=== PATIENT | female | born 1940 | race Caucasian/White ===

== ENCOUNTER → 2016-08-23 | Outpatient (CLI) | payer MEDICARE ==
[2016-08-23 13:06] LABS: ABSOLUTE EOSINOPHILS # (AUTO) 0.1 10^3/uL (0.0-0.6); ABSOLUTE LYMPHOCYTES (AUTO) 1.8 10^3/uL (0.5-4.7); ABSOLUTE MONOCYTES (AUTO) 0.5 10^3/uL (0.1-1.4); ABSOLUTE NEUT (AUTO) 5.2 10^3/uL (1.7-8.2); BASOPHILS % (AUTO) 0.4 % (0-2); EOSINOPHILS % (AUTO) 0.8 % (0-6); HEMATOCRIT 35.7 % (36.0-47.0); HEMOGLOBIN 11.3 g/dL (12.0-15.5); HGB HCT DIFFERENCE -1.8; LYMPHOCYTES % (AUTO) 23.2 % (13-45); MEAN CORPUSCULAR HEMOGLOBIN 26.6 pg (27.0-33.4); MEAN CORPUSCULAR HGB CONC 31.6 g/dL (32.0-36.0); MEAN CORPUSCULAR VOLUME 84 fl (80-97); MONOCYTES % (AUTO) 7.1 % (3-13); RED BLOOD COUNT 4.23 10^6/uL (3.72-5.28); RED CELL DISTRIBUTION WIDTH 16.3 % (11.5-14.0); SEGMENTED NEUTROPHILS % (AUTO) 68.5 % (42-78); WHITE BLOOD COUNT 7.6 10^3/uL (4.0-10.5)
[2016-08-23 13:37] LABS: ALANINE AMINOTRANSFERASE 24 U/L (9-52); ALBUMIN 3.9 g/dL (3.5-5.0); ALKALINE PHOSPHATASE 78 U/L (38-126); ANION GAP 11 (5-19); ASPARTATE AMINO TRANSFERASE 20 U/L (14-36); BILIRUBIN,DIRECT 0.3 mg/dL (0.0-0.4); BILIRUBIN,TOTAL 0.4 mg/dL (0.2-1.3); BLOOD UREA NITROGEN 17 mg/dL (7-20); C-REACTIVE PROTEIN 15.6 mg/L (<10.0); CALCIUM 9.6 mg/dL (8.4-10.2); CARBON DIOXIDE 29 mmol/L (22-30); CHLORIDE 103 mmol/L (98-107); CREATININE RESULT 0.83 mg/dL (0.52-1.25); GLUCOSE 75 mg/dL (75-110); SODIUM 142.5 mmol/L (137-145); TOTAL PROTEIN 7.4 g/dL (6.3-8.2)
[2016-08-23 13:55] LABS: ERYTHROCYTE SEDIMENTATION RATE 48 mm/hr (0-30)
== END ==
LOC: WC 11:22
PROVIDERS: ATTEND Surgery
DX: E11.9 Type 2 diabetes mellitus without complications (principal)
CPT/HCPCS: 36415; 80053; 83036; 85025; 85652; 86140

== ENCOUNTER → 2016-09-11 | Outpatient (CLI) | payer MEDICARE ==
--- NOTE | 2016-09-12 11:15 | XCELERA REPORT ---
[address] [address] Lower Extremity Arterial Evaluation Name: MICHAELA WESLEY Age: 75 yrs Gender: Female : 1940 Patient Status: Outpatient Patient Location: Study Date: 09/11/2016 01:54 PM Procedure: A color flow and duplex scan of the lower extremity arteries was performed bilaterally with velocity and waveform anaylsis. Ankle brachial indicies performed. Reason For Study: ULCER Ordering Physician: KAYLYN MARTINS Performed By: Garth Lovett Measurements and Calculations Right Left ROLLER PICKER PSV 200.4 173.8 cm/sec Prox PFA PSV 106.9 cm/sec Dist SFA PSV -127.3 -119.4 cm/sec Dist Pop A PSV 116.3 106.2 cm/sec Dist RONN PSV 79.5 131.3 cm/sec Dist GLASS FURNACE OPERATOR PSV -108.7 136.9 cm/sec Mookie Pedis PSV 77.3 -72.0 cm/sec Right Side Arterial Evaluation Normal velocity and triphasic waveforms noted from the Common Femoral artery to the infrageniculate vessels. 0 % stenosis noted. Ankle Brachial index is 1.12. Left Side Arterial Evaluation Normal velocity and triphasic waveforms noted from the Common Femoral artery to the infrageniculate vessels. 0% stenosis noted. Ankle Brachial index is 1.32. Interpretation Summary No hemodynamically significant lesions in the bilateral lower extremities, on duplex imaging, at rest. : KAYLYN MARTINS > Kaylyn Martins
--- NOTE | 2016-09-12 11:22 | XCELERA REPORT ---
[address] [address] Lower Extremity Venous Evaluation Name: MICHAELA WESLEY Age: 75 yrs Gender: Female : 1940 Patient Status: Outpatient Patient Location: Study Date: 09/11/2016 02:17 PM Procedure: A bilateral duplex scan of the lower extremity veins was performed. The evaluation included responses to compression and other maneuvers with patient in the supine and standing positions to assess venous insufficiency. Reason For Study: ULCER Ordering Physician: KAYLYN MARTINS Performed By: Garth Lovett Right Sided Venous Evaluation Deep venous system evaluatiion shows patent veins with no obstruction or significant reflux identified. Sapheno Femoral junction: no reflux. Femoral vein reflux: no reflux. Greater Saphenous vein, Proximal thigh: reflux: no reflux. Greater Saphenous vein, Distal thigh: reflux: no reflux. Greater Saphenous vein, Proximal below knee: reflux: no reflux. No significant Perforators identified. Left Sided Venous Evaluation Deep venous system evaluatiion shows patent veins with no obstruction or significant reflux identified. Sapheno Femoral junction: no reflux. Femoral vein reflux: no reflux. Greater Saphenous vein, Proximal thigh: reflux: no reflux. Greater Saphenous vein, Distal thigh: reflux: no reflux. Greater Saphenous vein, Proximal below knee: reflux: no reflux. No significant Perforators identified. Interpretation Summary No duplex evidence of DVT or obstruction in the bilateral lower extremities. No significant reflux identified. : KAYLYN MARTINS > Kaylyn Martins
== END ==
LOC: SP 13:26
PROVIDERS: ATTEND Surgery
DX: L97.212 Non-pressure chronic ulcer of right calf with fat layer exposed (principal); L97.222 Non-pressure chronic ulcer of left calf with fat layer exposed
CPT/HCPCS: 93925; 93970

== ENCOUNTER 2019-07-02 12:56 | Inpatient (IN) | payer MEDICARE ==
[2019-07-02 14:01] LABS: ABSOLUTE BASOPHILS # (AUTO) 0.1 10^3/uL (0.0-0.2); ABSOLUTE EOSINOPHILS # (AUTO) 0.1 10^3/uL (0.0-0.6); ABSOLUTE MONOCYTES (AUTO) 0.6 10^3/uL (0.1-1.4); ABSOLUTE NEUT (AUTO) 5.4 10^3/uL (1.7-8.2); BASOPHILS % (AUTO) 0.8 % (0-2); EOSINOPHILS % (AUTO) 0.7 % (0-6); HEMATOCRIT 19.8 % (36.0-47.0); LYMPHOCYTES % (AUTO) 13.8 % (13-45); MEAN CORPUSCULAR HEMOGLOBIN 17.2 pg (27.0-33.4); MEAN CORPUSCULAR HGB CONC 27.4 g/dL (32.0-36.0); PLATELET COUNT 302 10^3/uL (150-450); RED BLOOD COUNT 3.16 10^6/uL (3.72-5.28); RED CELL DISTRIBUTION WIDTH 23.4 % (11.5-14.0); SEGMENTED NEUTROPHILS % (AUTO) 76.7 % (42-78); TOTAL CELLS COUNTED % (AUTO) 100 %
--- NOTE | 2019-07-02 14:10 | RADIOLOGY REPORT (SQ) ---
EXAM DESCRIPTION: CHEST SINGLE VIEW IMAGES COMPLETED DATE/TIME: 07/02/2019 2:02 pm REASON FOR STUDY: shortness of breath COMPARISON: None. FINDINGS: One-view chest AP portable upright. 2 images obtained. Cardiomegaly. No overt congestive failure or pneumonia or pneumothorax. TECHNICAL DOCUMENTATION: JOB ID: [id number] Reading location - IP/workstation name: [email or web address]
[2019-07-02 14:16] LABS: ALBUMIN 3.1 g/dL (3.5-5.0); ALKALINE PHOSPHATASE 110 U/L (38-126); ANION GAP 9 (5-19); ASPARTATE AMINO TRANSFERASE 26 U/L (14-36); BILIRUBIN,DIRECT 0.2 mg/dL (0.0-0.4); BILIRUBIN,TOTAL 0.9 mg/dL (0.2-1.3); BLOOD UREA NITROGEN 15 mg/dL (7-20); CALCIUM 8.7 mg/dL (8.4-10.2); CARBON DIOXIDE 27 mmol/L (22-30); CHLORIDE 94 mmol/L (98-107); POTASSIUM 4.5 mmol/L (3.6-5.0); TOTAL PROTEIN 6.6 g/dL (6.3-8.2)
[2019-07-02 14:18] LABS: MEAN CORPUSCULAR VOLUME 63 fl (80-97)
[2019-07-02 14:22] LABS: HEMOGLOBIN 5.4 g/dL (12.0-15.5)
[2019-07-02 14:24] LABS: GLUCOSE 609 mg/dL (75-110)
[2019-07-02 14:25] LABS: ANISOCYTOSIS 3+; HYPOCHROMASIA 2+; PLATELET COMMENT ADEQUATE; POIKILOCYTOSIS SLIGHT; POLYCHROMASIA 1+; SCHISTOCYTES SLIGHT; TEAR DROP CELLS SLIGHT
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
[2019-07-02] MEDS ORDERED: NORMAL SALINE 250 ML IV PRN (14:58)
[2019-07-02 15:11] LABS: FREE T3 2.38 pg/mL (2.77-5.27); FREE T4 (FREE THYROXINE) 0.76 ng/dL (0.78-2.19)
[2019-07-02 15:25] LABS: THYROID STIMULATING HORMONE 8.33 uIU/mL (0.47-4.68)
[2019-07-02 15:40] LABS: APPEARANCE,URINE CLEAR; BILIRUBIN,URINE NEGATIVE (NEGATIVE); COLOR,URINE YELLOW; GLUCOSE, URINE >=500 mg/dL (NEGATIVE); KETONES,URINE TRACE mg/dL (NEGATIVE); LEUKOCYTE ESTERASE,URINE NEGATIVE (NEGATIVE); NITRITE,URINE POSITIVE (NEGATIVE); PROTEIN,URINE NEGATIVE (NEGATIVE); URINE SPECIFIC GRAVITY 1.021; UROBILINOGEN,URINE NEGATIVE mg/dL (<2.0)
[2019-07-02 15:55] LABS: INTERNATIONAL RATION (INR) 1.22; PROTHROMBIN TIME 15.5 SEC (11.4-15.4)
[2019-07-02 16:12] LABS: ABSOLUTE RETICS # 0.108 10^6/uL (0.028-0.122); RETICULOCYTE COUNT (AUTO) 3.38 % (0.66-2.85)
[2019-07-02 16:29] LABS: IRON(TIBC) 17.4 ug/dL (37-170)
[2019-07-02 17:06] LABS: FERRITIN 5.94 ng/mL (11.1-264.0)
[2019-07-02] MEDS ORDERED: NORMAL SALINE 1000 ML 1,000 ML IV ONE (17:09)
[2019-07-02 17:37] LABS: FOLATE 6.03 ng/mL (>2.76)
--- NOTE | 2019-07-02 18:18 | RADIOLOGY REPORT (SQ) ---
EXAM DESCRIPTION: CT ABD/PELVIS WITH IV ONLY IMAGES COMPLETED DATE/TIME: 07/02/2019 6:02 pm REASON FOR STUDY: Anemia COMPARISON: Recent radiographs. TECHNIQUE: CT scan of the abdomen and pelvis performed using helical scanning technique with dynamic intravenous contrast injection. No oral contrast. Images reviewed with lung, soft tissue, and bone windows. Reconstructed coronal and sagittal MPR images reviewed. Delayed images for evaluation of the urinary system also acquired. All images stored on PACS. All CT scanners at this facility use dose modulation, iterative reconstruction, and/or weight based d osing when appropriate to reduce radiation dose to as low as reasonably achievable (ALARA). [facility]: Dose Right [facility]: CareDose [facility]: Dose Right [facility]: Teradose 4D [facility]: Per Vices CONTRAST TYPE AND DOSE: contrast/concentration: Isovue 350.00 mg/ml; Total Contrast Delivered: 100.0 ml; Total Saline Delivered: 72.0 ml RENAL FUNCTION: GFR > 60. RADIATION DOSE: CT Rad equipment meets quality standard of care and radiation dose reduction techniq ues were employed. CTDIvol: 19.2 - 21.1 mGy. DLP: 2169 mGy-cm.. LIMITATIONS: Habitus. FINDINGS: LOWER CHEST: Small bilateral effusions. Cardiomegaly. LIVER: Normal size. No masses. No dilated ducts. SPLEEN: Normal size. No focal lesions. PANCREAS: No masses. No significant calcifications. No adjacent inflammation or peripancreatic fluid collections. Pancreatic duct not dilated. GALLBLADDER: Surgically absent. ADRENAL GLANDS: No significant masses or asymmetry. RIGHT KIDNEY AND URETER: No solid masses. No significant calcification. No hydronephrosis or hydroure ter. LEFT KIDNEY AND URETER: No solid masses. No significant calcification. No hydronephrosis or hydrouret er. AORTA AND VESSELS: No aneurysm. No dissection. Renal arteries, SMA, celiac without stenosis. RETROPERITONEUM: No retroperitoneal adenopathy, hemorrhage or masses. BOWEL AND PERITONEAL CAVITY: No masses or inflammatory changes. No free fluid or peritoneal masses. APPENDIX: Normal. PELVIS: No mass. No free fluid. Normal bladder. ABDOMINAL WALL: Stranding in the ventral abdominal wall panniculus. No drainable collection. Abdomi nal wall partially out of the field of view. Small fat containing periumbilical hernia. No bowel co ntaining hernia. BONES: No significant or acute findings. OTHER: No other significant finding. IMPRESSION: 1. Trace effusions and cardiomegaly. 2. No acute or suspicious intraabdominal abnormality. Soft tissue findings as above. TECHNICAL DOCUMENTATION: JOB ID: [id number] Quality ID # [id number]: Final reports with documentation of one or more dose reduction techniques (e.g., Au tomated exposure control, adjustment of the mA and/or kV according to patient size, use of iterative reconstruction technique) 2010 [employer]- All Rights Reserved Reading location - IP/workstation name: [email or web address]
[2019-07-02] MEDS ORDERED: DEXTROSE 50%-WATER 25 GM/50 ML DISP.SYRIN IV PRN ×2 (19:38)
[2019-07-02] MEDS ORDERED: GLUCAGON,HUMAN RECOMB 1 MG INJ IM PRN (19:38)
[2019-07-02] MEDS ORDERED: DEXTROSE 40% GEL 15 GM TUBE PO PRN ×2 (19:38)
[2019-07-02] MEDS ORDERED: NORMAL SALINE 1000 ML 1,000 ML IV PRN (19:41)
[2019-07-02] MEDS ORDERED: ALBUTEROL SULFATE 0.083% NEB 2.5 MG/3 ML AMPUL NEB PRN (19:41)
[2019-07-02] MEDS ORDERED: MAG HYDROX/AL HYDROX/SIMETH SUSP 30 ML UDCUP PO PRN (19:41)
[2019-07-02] MEDS ORDERED: ONDANSETRON HCL INJ/PF 4 MG/2 ML SDV IV PRN (19:41)
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
[2019-07-02] MEDS ORDERED: INSULIN LISPRO 100 UNIT/ML 3 ML VIAL SUBCUT ONE (20:15)
[2019-07-02] MEDS ORDERED: IRON SUCROSE COMPLEX 300 MG in NORMAL SALINE 250 ML IV ONE (20:30)
[2019-07-02] MEDS: INSULIN LISPRO 100 UNIT/ML 3 ML VIAL SUBCUT SCH (21:46)
[2019-07-02] MEDS: FAMOTIDINE 20 MG TABLET PO SCH (21:46)
[2019-07-02] MEDS: ACETAMINOPHEN 325 MG TABLET PO PRN (23:10)
[2019-07-03] MEDS ORDERED: INSULIN REG, HUMAN 100 UNIT/ML 3 ML VIAL (PYX) IV ONE (05:30)
[2019-07-03 05:35] LABS: HEMATOCRIT 26.3 % (36.0-47.0); MEAN CORPUSCULAR HEMOGLOBIN 19.5 pg (27.0-33.4); MEAN CORPUSCULAR HGB CONC 30.2 g/dL (32.0-36.0); MEAN CORPUSCULAR VOLUME 65 fl (80-97); PLATELET COUNT 284 10^3/uL (150-450); RED BLOOD COUNT 4.07 10^6/uL (3.72-5.28); RED CELL DISTRIBUTION WIDTH 27.2 % (11.5-14.0); WHITE BLOOD COUNT 8.8 10^3/uL (4.0-10.5)
[2019-07-03 05:51] LABS: ANION GAP 11 (5-19); BLOOD UREA NITROGEN 14 mg/dL (7-20); CARBON DIOXIDE 24 mmol/L (22-30); CHLORIDE 97 mmol/L (98-107); GLUCOSE 368 mg/dL (75-110); POTASSIUM 3.9 mmol/L (3.6-5.0)
[2019-07-03 06:18] LABS: HEMOGLOBIN 7.9 g/dL (12.0-15.5)
[2019-07-03] MEDS: LEVOTHYROXINE SODIUM 0.025 MG TABLET PO SCH (06:21)
[2019-07-03] MEDS: ACETAMINOPHEN 325 MG TABLET PO PRN (06:21)
[2019-07-03] MEDS: INSULIN LISPRO 100 UNIT/ML 3 ML VIAL SUBCUT SCH ×4 (07:51→21:35)
[2019-07-03] MEDS: DOCUSATE SODIUM 100 MG CAPSULE PO SCH (10:12)
[2019-07-03] MEDS: FAMOTIDINE 20 MG TABLET PO SCH ×2 (10:12→21:34)
[2019-07-03] MEDS: MINERAL OIL/PETROLATUM,WHITE CREAM 114 GM TP SCH (11:31)
--- NOTE | 2019-07-03 17:16 | PDOC PROGRESS REPORT ---
Subjective Progress Note for:: 07/03/19 Subjective:: MICHAELA WESLEY is a 78 year old female past medical history significant for hypertension, hyperlipidemia, DM 2, hypothyroidism, and obesity who was admitted 07/02/2019 with symptomatic anemia. Patient was seen on morning rounds. She is found sitting up to the recliner, comfortably, on room air. She reports that she is feeling much better today; decreased fatigue/weakness. Discussed her negative CT findings and laboratory results showing uncontrolled diabetes mellitus and iron deficiency anemia. Patient denies fever, chills, chest pain, palpitations, dyspnea, orthopnea, abdominal pain, nausea vomiting and diarrhea. She further denies recent episodes of hematemesis, hematuria, melena/hematochezia, and vaginal bleeding. Has no other questions or concerns at this time. No concerns per nursing. Reason For Visit: SYMPTOMATIC ANEMIA Physical Exam Vital Signs: Temp Pulse Resp BP Pulse Ox 97.5 F 93 18 116/57 L 99 07/03/19 16:10 07/03/19 16:10 07/03/19 16:10 07/03/19 16:10 07/03/19 15:40 Intake & Output 07/02/19 07/03/19 07/04/19 06:59 06:59 06:59 Intake Total 2785 780 Output Total 530 Balance 2255 780 Weight 139.2 kg General appearance: PRESENT: no acute distress, cooperative, morbidly obese, well-developed, well-nourished Head exam: PRESENT: atraumatic, normocephalic Eye exam: PRESENT: conjunctiva pink, EOMI, PERRLA. ABSENT: scleral icterus Ear exam: PRESENT: normal external ear exam Mouth exam: PRESENT: moist, tongue midline Respiratory exam: PRESENT: clear to auscultation chan, symmetrical, unlabored. ABSENT: rales, rhonchi, wheezes Cardiovascular exam: PRESENT: irregular rhythm, +S1, +S2. ABSENT: diastolic murmur, rubs, systolic murmur Pulses: PRESENT: normal dorsalis pedis pul Vascular exam: PRESENT: normal capillary refill GI/Abdominal exam: PRESENT: normal bowel sounds, soft. ABSENT: distended, guarding, mass, organolmegaly, rebound, tenderness Rectal exam: PRESENT: deferred Extremities exam: PRESENT: full ROM, other - Chronic venous stasis changes BLE. ABSENT: calf tenderness, clubbing, pedal edema Musculoskeletal exam: PRESENT: ambulatory - With assistance Neurological exam: PRESENT: alert, awake, oriented to person, oriented to place, oriented to time, oriented to situation, CN II-XII grossly intact. ABSENT: motor sensory deficit Psychiatric exam: PRESENT: appropriate affect, normal mood. ABSENT: homicidal ideation, suicidal ideation Skin exam: PRESENT: dry, warm. ABSENT: cyanosis, rash Results Laboratory Results: 07/03/19 04:50 07/03/19 04:50 07/02/19 07/02/19 07/03/19 13:41 15:01 04:50 WBC 8.8 RBC 4.07 Hgb 7.9 L D Hct 26.3 L MCV 65 L MCH 19.5 L MCHC 30.2 L RDW 27.2 H Plt Count 284 Sodium Potassium Chloride Carbon Dioxide Anion Gap BUN Creatinine Est GFR ( Amer) Glucose Calcium Iron 17.4 L TIBC 412 % Saturation 4 Ferritin 5.94 L Vitamin B12 649.0 Folate 6.03 Blood Type A POSITIVE Antibody Screen NEGATIVE 07/03/19 04:50 WBC RBC Hgb Hct MCV MCH MCHC RDW Plt Count Sodium 131.6 L Potassium 3.9 Chloride 97 L Carbon Dioxide 24 Anion Gap 11 BUN 14 Creatinine 0.79 Est GFR ( Amer) > 60 Glucose 368 H Calcium 9.0 Iron TIBC % Saturation Ferritin Vitamin B12 Folate Blood Type Antibody Screen Impressions: Abdomen/Pelvis CT 07/02/19 17:10 IMPRESSION: 1. Trace effusions and cardiomegaly. 2. No acute or suspicious intraabdominal abnormality. Soft tissue findings as above. Assessment and Plan - Diagnosis (1) Iron deficiency anemia Qualifiers: Iron deficiency anemia type: unspecified iron deficiency Qualified Code(s): D50.9 - Iron deficiency anemia, unspecified Is this a current diagnosis for this admission?: Yes Plan: Patient presented with hemoglobin 5.4. She was found to have an elevated retake count of 3.38 normal coags, iron 17.4, ferritin 5.94. She denies any rectal vaginal or urinary bleeding. Occult stool was negative. Urinalysis was negative for blood CT abdomen pelvis with contrast undertaken to evaluate for occult malignancy that may have contributed to her profound anemia and was also negative. She has received 3 of 4 units PRBC She has received IV Venofer Patient is admitted to the medical floor on continuous cardiac telemetry. She is provided supplemental oxygen as needed maintain oxygen saturations. Consider hematology consultation; will certainly need to follow up as an outpatient Registered dietitian is consulted. (2) Symptomatic anemia Is this a current diagnosis for this admission?: Yes Plan: Improved. Secondary to #1 Management as above. (3) Atrial fibrillation Is this a current diagnosis for this admission?: Yes Plan: Patient noted to be in a. fib with HR 90-100. Will correct profound anemia. Monitor on telemetry. Not a candidate for anticoagulation at this time. (4) Hypothyroidism Qualifiers: Hypothyroidism type: unspecified Qualified Code(s): E03.9 - Hypothyroidism, unspecified Is this a current diagnosis for this admission?: Yes Plan: TSH 8.33 T3 0.76 T4 2.38 Start on levothyroxine. (5) Uncontrolled type 2 diabetes mellitus Qualifiers: Glycemic state: with hyperglycemia Qualified Code(s): E11.65 - Type 2 diabetes mellitus with hyperglycemia Is this a current diagnosis for this admission?: Yes Plan: A1C 11.1% Patient is placed on a consistent carb diet. Start Lantus 10 units QHS Accu-Cheks before meals and at bedtime with Humalog for sliding scale coverage. Hypoglycemia protocol in place. Registered dietitian religious educator consulted. (6) Morbid obesity Is this a current diagnosis for this admission?: Yes Plan: Dietary discretion advised. Management of hypothyroidism as above. chief marketing officer is consulted. - Time Time Spent with patient: 35 or more minutes Medications reviewed and adjusted accordingly: Yes Anticipated discharge: Home with Homehealth Within: within 48 hours
[2019-07-03] MEDS ORDERED: DIPHENHYDRAMINE HCL 25 MG CAPSULE PO PRN (18:17)
[2019-07-03 21:26] LABS: HEMATOCRIT 30.1 % (36.0-47.0); HEMOGLOBIN 9.6 g/dL (12.0-15.5); MEAN CORPUSCULAR HEMOGLOBIN 21.7 pg (27.0-33.4); MEAN CORPUSCULAR VOLUME 68 fl (80-97); PLATELET COUNT 289 10^3/uL (150-450); RED BLOOD COUNT 4.44 10^6/uL (3.72-5.28); RED CELL DISTRIBUTION WIDTH 29.5 % (11.5-14.0); WHITE BLOOD COUNT 10.9 10^3/uL (4.0-10.5)
[2019-07-03] MEDS: MELATONIN 3 MG TABLET PO SCH ×2 (21:34→22:00)
[2019-07-03 21:52] LABS: ABSOLUTE LYMPHOCYTES# (MANUAL) 2.6 10^3/uL (0.5-4.7); ABSOLUTE MONOCYTES # (MANUAL) 0.4 10^3/uL (0.1-1.4); BAND NEUTROPHILS % (MANUAL) 4 % (3-5); BASOPHILS % (MANUAL) 0 % (0-2); EOSINOPHILS % (MANUAL) 1 % (0-6); LYMPHOCYTES % (MANUAL) 24 % (13-45); METAMYELOCYTES % (MANUAL) 1 % (0-1); MONOCYTES % (MANUAL) 4 % (3-13); SEGMENTED NEUTROPHILS % (MAN) 66 % (42-78); TOTAL CELLS COUNTED 100
[2019-07-03 21:53] LABS: ANISOCYTOSIS 1+; BURR CELLS 1+; HYPOCHROMASIA 1+; PLATELET COMMENT ADEQUATE; POIKILOCYTOSIS 1+; POLYCHROMASIA 1+
[2019-07-03] MEDS ORDERED: INSULIN GLARGINE,HUM.REC.ANLOG 1,000 UNIT/10 ML VIAL SUBCUT SCH (22:00)
[2019-07-04] MEDS: LEVOTHYROXINE SODIUM 0.025 MG TABLET PO SCH (05:09)
[2019-07-04 06:14] LABS: HEMATOCRIT 32.3 % (36.0-47.0); HEMOGLOBIN 10.2 g/dL (12.0-15.5); MEAN CORPUSCULAR HEMOGLOBIN 21.3 pg (27.0-33.4); MEAN CORPUSCULAR HGB CONC 31.6 g/dL (32.0-36.0); MEAN CORPUSCULAR VOLUME 68 fl (80-97); PLATELET COUNT 300 10^3/uL (150-450); RED BLOOD COUNT 4.78 10^6/uL (3.72-5.28); RED CELL DISTRIBUTION WIDTH 29.6 % (11.5-14.0)
[2019-07-04 06:27] LABS: ANION GAP 12 (5-19); BLOOD UREA NITROGEN 13 mg/dL (7-20); CARBON DIOXIDE 23 mmol/L (22-30); CHLORIDE 98 mmol/L (98-107); GLUCOSE 369 mg/dL (75-110); POTASSIUM 4.2 mmol/L (3.6-5.0)
[2019-07-04] MEDS: INSULIN LISPRO 100 UNIT/ML 3 ML VIAL SUBCUT SCH ×4 (07:38→21:35)
[2019-07-04] MEDS: FAMOTIDINE 20 MG TABLET PO SCH ×2 (09:53→21:36)
[2019-07-04] MEDS: MINERAL OIL/PETROLATUM,WHITE CREAM 114 GM TP SCH (09:53)
[2019-07-04] MEDS: DOCUSATE SODIUM 100 MG CAPSULE PO SCH (09:53)
--- NOTE | 2019-07-04 10:32 | EKG REPORT ---
SEVERITY:- ABNORMAL ECG - ATRIAL FIBRILLATION LOW VOLTAGE THROUGHOUT BORDERLINE R WAVE PROGRESSION, ANTERIOR LEADS : Confirmed by: Karla Arellano 04-Jul-2019 10:32:27
[2019-07-04] MEDS: CEFTRIAXONE 1 GM/D5W RTU 1 GM/50 ML RTUPB IV SCH (11:09)
--- NOTE | 2019-07-04 13:58 | Progress Note ---
Provider Note Provider Note: Hematology/Oncology consult was received. However, due to COVID-19 restrictions, I was not able to see patient in the hospital. I tried to reach her by telephone and have not yet been able to do this either. However, I did discuss her situation with Lissette Rangel. She presented with iron deficiency anemia as evidenced by HGB of 5.4 and Ferritin 5.94. Her hemoccult has been negative and there is no evidence of GI bleeding. She has received 4 units pRBCs as well as IV iron infusion x 1 dose. This morning, reportedly, she is feeling much better. I am happy to see her in the office for further treatment on her Iron deficiency anemia and monitor her HGB. She will still work with internal medicine for obesity, DM, hypothyroid, etc. Please call me with any quetions or concerns. I will arrange for outpatient follow-up.
[2019-07-04 14:29] LABS: APPEARANCE,URINE SLIGHTLY-CLOUDY; BILIRUBIN,URINE NEGATIVE (NEGATIVE); COLOR,URINE YELLOW; GLUCOSE, URINE >=500 mg/dL (NEGATIVE); KETONES,URINE NEGATIVE (NEGATIVE); PROTEIN,URINE NEGATIVE (NEGATIVE); URINE SPECIFIC GRAVITY 1.021
[2019-07-04] MEDS ORDERED: INSULIN LISPRO 100 UNIT/ML 3 ML VIAL SUBCUT ONE (14:30)
--- NOTE | 2019-07-04 14:33 | PDOC PROGRESS REPORT ---
Subjective Progress Note for:: 07/04/19 Subjective:: MICHAELA WESLEY is a 78 year old female past medical history significant for hypertension, hyperlipidemia, DM 2, hypothyroidism, and obesity who was admitted 07/02/2019 with symptomatic anemia. Patient was seen on morning rounds. She is found resting in bed, comfortably, on room air. She reports that she is feeling well today. Patient denies fever, chills, chest pain, palpitations, dyspnea, orthopnea, abdominal pain, nausea vomiting and diarrhea. She further denies recent episodes of hematemesis, hematuria, melena/hematochezia, and vaginal bleeding. Has no other questions or concerns at this time. No concerns per nursing. Reason For Visit: SYMPTOMATIC ANEMIA Physical Exam Vital Signs: Temp Pulse Resp BP Pulse Ox 97.6 F 68 16 122/54 L 95 07/04/19 08:00 07/04/19 08:00 07/04/19 08:00 07/04/19 08:00 07/04/19 08:00 Intake & Output 07/03/19 07/04/19 07/05/19 06:59 06:59 06:59 Intake Total 2785 1560 50 Output Total 530 Balance 2255 1560 50 Weight 139.2 kg 123.8 kg General appearance: PRESENT: no acute distress, cooperative, disheveled, obese, well-developed, well-nourished Head exam: PRESENT: atraumatic, normocephalic Eye exam: PRESENT: conjunctiva pink, EOMI, PERRLA. ABSENT: scleral icterus Ear exam: PRESENT: normal external ear exam Mouth exam: PRESENT: moist, tongue midline Respiratory exam: PRESENT: clear to auscultation chan, symmetrical, unlabored. ABSENT: rales, rhonchi, wheezes Cardiovascular exam: PRESENT: irregular rhythm, +S1, +S2. ABSENT: diastolic murmur, rubs, systolic murmur Vascular exam: PRESENT: normal capillary refill GI/Abdominal exam: PRESENT: normal bowel sounds, soft, other - large panus. ABSENT: distended, guarding, mass, organolmegaly, rebound, tenderness Rectal exam: PRESENT: deferred Extremities exam: PRESENT: full ROM, other - chronic venous stasis changes BLE. ABSENT: calf tenderness, clubbing Musculoskeletal exam: PRESENT: ambulatory Neurological exam: PRESENT: alert, awake, oriented to person, oriented to place, oriented to time, oriented to situation, CN II-XII grossly intact. ABSENT: motor sensory deficit Psychiatric exam: PRESENT: appropriate affect, normal mood. ABSENT: homicidal ideation, suicidal ideation Skin exam: PRESENT: dry, erythema - pannus, warm, other - 6 cm round, shallow wound, with sloughing/purulent drainage and surrounding errythema to Rt lower abd. Excoriation to pannus. ABSENT: cyanosis, intact, rash Results Laboratory Results: 07/04/19 05:40 07/04/19 05:40 07/02/19 07/03/19 07/04/19 15:01 21:00 05:40 WBC 10.9 H 13.0 H RBC 4.44 4.78 Hgb 9.6 L 10.2 L Hct 30.1 L 32.3 L MCV 68 L 68 L MCH 21.7 L 21.3 L MCHC 32.0 31.6 L RDW 29.5 H 29.6 H Plt Count 289 300 Seg Neutrophils % Not Reportable Sodium Potassium Chloride Carbon Dioxide Anion Gap BUN Creatinine Est GFR ( Amer) Glucose Calcium Blood Type A POSITIVE Antibody Screen NEGATIVE 07/04/19 05:40 WBC RBC Hgb Hct MCV MCH MCHC RDW Plt Count Seg Neutrophils % Sodium 132.6 L Potassium 4.2 Chloride 98 Carbon Dioxide 23 Anion Gap 12 BUN 13 Creatinine 0.79 Est GFR ( Amer) > 60 Glucose 369 H Calcium 9.0 Blood Type Antibody Screen Impressions: Abdomen/Pelvis CT 07/02/19 17:10 IMPRESSION: 1. Trace effusions and cardiomegaly. 2. No acute or suspicious intraabdominal abnormality. Soft tissue findings as above. Assessment and Plan - Diagnosis (1) Iron deficiency anemia Qualifiers: Iron deficiency anemia type: unspecified iron deficiency Qualified Code(s): D50.9 - Iron deficiency anemia, unspecified Is this a current diagnosis for this admission?: Yes Plan: Patient presented with hemoglobin 5.4. She was found to have an elevated retake count of 3.38 normal coags, iron 17.4, ferritin 5.94. She denies any rectal vaginal or urinary bleeding. Occult stool was negative. Urinalysis was negative for blood CT abdomen pelvis with contrast undertaken to evaluate for occult malignancy that may have contributed to her profound anemia and was also negative. She has received 4 units PRBC She has received IV Venofer Patient is admitted to the medical floor on continuous cardiac telemetry. She is provided supplemental oxygen as needed maintain oxygen saturations. Hematology consultation; will certainly need to follow up as an outpatient. Appreciate Dr. Madison's assistance. Registered dietitian is consulted. (2) Symptomatic anemia Is this a current diagnosis for this admission?: Yes Plan: Resolved. Secondary to #1 Management as above. (3) Atrial fibrillation Is this a current diagnosis for this admission?: Yes Plan: Patient noted to be in a. fib with HR 90-100. Will correct profound anemia. Monitor on telemetry. Not a candidate for anticoagulation at this time. (4) Hypothyroidism Qualifiers: Hypothyroidism type: unspecified Qualified Code(s): E03.9 - Hypothyroidism, unspecified Is this a current diagnosis for this admission?: Yes Plan: TSH 8.33 T3 0.76 T4 2.38 Start on levothyroxine. (5) Uncontrolled type 2 diabetes mellitus Qualifiers: Glycemic state: with hyperglycemia Qualified Code(s): E11.65 - Type 2 diabetes mellitus with hyperglycemia Is this a current diagnosis for this admission?: Yes Plan: A1C 11.1% Patient is placed on a consistent carb diet. Increase to Lantus 16 units QHS Accu-Cheks before meals and at bedtime with Humalog for sliding scale coverage. Hypoglycemia protocol in place. Registered dietitian forest fire fighters dispatcher consulted. (6) Morbid obesity Is this a current diagnosis for this admission?: Yes Plan: Dietary discretion advised. Management of hypothyroidism as above. shell maker lockstitch is consulted. (7) Abdominal wall cellulitis Is this a current diagnosis for this admission?: Yes Plan: WBCs trending up. Afebrile. CT revealed stranding in the pannus; no drainable collection Blood culture negative at 24 hrs Wound culture pending. Reviewed previous wound culture results to assist with Abx choice. Patient is started on IV Rocephin Chlorhexidine bath daily; special attention to skin folds. Consider surgical evaluation (8) Pannus, abdominal Is this a current diagnosis for this admission?: Yes (9) UTI (urinary tract infection) Qualifiers: Urinary tract infection type: acute cystitis Hematuria presence: with hematuria Qualified Code(s): N30.01 - Acute cystitis with hematuria Is this a current diagnosis for this admission?: Yes Plan: Blood cultures NGTD Urine culture pending. IV Rocephin - Time Time Spent with patient: 25-34 minutes Medications reviewed and adjusted accordingly: Yes Anticipated discharge: Home with Homehealth
[2019-07-04] MEDS ORDERED: INSULIN GLARGINE,HUM.REC.ANLOG 1,000 UNIT/10 ML VIAL SUBCUT SCH (22:00)
[2019-07-04] MEDS: ACETAMINOPHEN 325 MG TABLET PO PRN (22:28)
[2019-07-04] MEDS: MELATONIN 3 MG TABLET PO SCH (23:26)
[2019-07-05] MEDS: LEVOTHYROXINE SODIUM 0.025 MG TABLET PO SCH (05:33)
[2019-07-05 06:49] LABS: HEMATOCRIT 30.9 % (36.0-47.0); HEMOGLOBIN 9.4 g/dL (12.0-15.5); MEAN CORPUSCULAR HEMOGLOBIN 21.1 pg (27.0-33.4); MEAN CORPUSCULAR HGB CONC 30.5 g/dL (32.0-36.0); MEAN CORPUSCULAR VOLUME 69 fl (80-97); PLATELET COUNT 243 10^3/uL (150-450); RED BLOOD COUNT 4.48 10^6/uL (3.72-5.28); RED CELL DISTRIBUTION WIDTH 29.9 % (11.5-14.0); WHITE BLOOD COUNT 9.3 10^3/uL (4.0-10.5)
[2019-07-05 06:53] LABS: ANION GAP 6 (5-19); BLOOD UREA NITROGEN 12 mg/dL (7-20); CALCIUM 8.8 mg/dL (8.4-10.2); CARBON DIOXIDE 28 mmol/L (22-30); CHLORIDE 99 mmol/L (98-107); GLUCOSE 276 mg/dL (75-110); POTASSIUM 4.1 mmol/L (3.6-5.0)
[2019-07-05] MEDS: INSULIN LISPRO 100 UNIT/ML 3 ML VIAL SUBCUT SCH ×6 (07:55→22:23)
[2019-07-05] MEDS ORDERED: DEXTROSE 40% GEL 15 GM TUBE PO PRN (08:21)
[2019-07-05] MEDS: FAMOTIDINE 20 MG TABLET PO SCH ×2 (09:22→22:24)
[2019-07-05] MEDS: DOCUSATE SODIUM 100 MG CAPSULE PO SCH (09:22)
[2019-07-05] MEDS: CEFTRIAXONE 1 GM/D5W RTU 1 GM/50 ML RTUPB IV SCH (09:23)
[2019-07-05] MEDS: MINERAL OIL/PETROLATUM,WHITE CREAM 114 GM TP SCH (09:23)
[2019-07-05 11:38] LABS: PATH REVIEW PATHOLOGIST REVIEWED
[2019-07-05] MEDS: HUM INSULIN NPH/REG INSULIN HM 100 UNIT/1 ML 3 ML SUBCUT SCH ×2 (11:57→16:52)
[2019-07-05] MEDS: NYSTATIN TOPICAL POWDER 15 GM TP SCH ×2 (11:58→17:16)
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
[2019-07-05] MEDS: SULFAMETHOXAZOLE/TRIMETHOPRIM 800-160 MG TABLET PO SCH (22:23)
[2019-07-05] MEDS: MELATONIN 3 MG TABLET PO SCH (22:23)
[2019-07-06] MEDS: LEVOTHYROXINE SODIUM 0.025 MG TABLET PO SCH (05:37)
[2019-07-06 06:10] LABS: HEMATOCRIT 31.2 % (36.0-47.0); HEMOGLOBIN 9.7 g/dL (12.0-15.5); MEAN CORPUSCULAR HEMOGLOBIN 21.8 pg (27.0-33.4); MEAN CORPUSCULAR HGB CONC 31.2 g/dL (32.0-36.0); MEAN CORPUSCULAR VOLUME 70 fl (80-97); PLATELET COUNT 253 10^3/uL (150-450); RED BLOOD COUNT 4.46 10^6/uL (3.72-5.28); RED CELL DISTRIBUTION WIDTH 30.2 % (11.5-14.0); WHITE BLOOD COUNT 9.1 10^3/uL (4.0-10.5)
[2019-07-06] MEDS: HUM INSULIN NPH/REG INSULIN HM 100 UNIT/1 ML 3 ML SUBCUT SCH ×2 (07:34→16:33)
[2019-07-06] MEDS: INSULIN LISPRO 100 UNIT/ML 3 ML VIAL SUBCUT SCH ×4 (07:35→22:28)
[2019-07-06] MEDS: SULFAMETHOXAZOLE/TRIMETHOPRIM 800-160 MG TABLET PO SCH ×2 (09:47→22:28)
[2019-07-06] MEDS: FAMOTIDINE 20 MG TABLET PO SCH ×2 (09:47→22:29)
[2019-07-06] MEDS: NYSTATIN TOPICAL POWDER 15 GM TP SCH ×2 (09:48→17:11)
[2019-07-06] MEDS: DOCUSATE SODIUM 100 MG CAPSULE PO SCH (09:48)
[2019-07-06] MEDS: MINERAL OIL/PETROLATUM,WHITE CREAM 114 GM TP SCH (09:48)
--- NOTE | 2019-07-06 16:27 | PDOC PROGRESS REPORT ---
Subjective Progress Note for:: 07/06/19 Subjective:: No adverse events overnight. No new complaints. Vital signs been stable. Eating and drinking without difficulty. She said she does not feel safe going back to where she has been living. She said house was hers but it was in her granddaughter's name and she feels like her granddaughter does not want her there. Reason For Visit: SYMPTOMATIC ANEMIA Physical Exam Vital Signs: Temp Pulse Resp BP Pulse Ox 97.2 F 96 16 116/64 98 07/06/19 07:32 07/06/19 14:00 07/06/19 07:32 07/06/19 07:32 07/06/19 07:32 Intake & Output 07/05/19 07/06/19 07/07/19 06:59 06:59 06:59 Intake Total 1026 430 480 Balance 1026 430 480 Weight 122.8 kg 122.8 kg General appearance: PRESENT: no acute distress, cooperative, disheveled, morbidly obese Respiratory exam: PRESENT: clear to auscultation chan, symmetrical, unlabored. ABSENT: accessory muscle use, chest wall tenderness, crackles, prolonged ex piratory phas, retraction, rhonchi, tachypnea, wheezes Cardiovascular exam: PRESENT: irregular rhythm Pulses: PRESENT: normal carotid pulses Vascular exam: PRESENT: normal capillary refill GI/Abdominal exam: PRESENT: normal bowel sounds, soft. ABSENT: distended, guarding, rebound, tenderness Extremities exam: PRESENT: pedal edema, +1 edema, other - Chronic venous stasis. ABSENT: clubbing Musculoskeletal exam: PRESENT: normal inspection. ABSENT: deformity Neurological exam: PRESENT: alert, awake, oriented to person, oriented to place, oriented to situation Psychiatric exam: PRESENT: appropriate affect, normal mood Skin exam: PRESENT: dry, warm, other - Area of skin breakdown under her abdominal pannus shows diminishing erythema with no drainage Results Laboratory Results: 07/06/19 05:45 07/05/19 05:45 07/06/19 05:45 WBC 9.1 RBC 4.46 Hgb 9.7 L Hct 31.2 L MCV 70 L MCH 21.8 L MCHC 31.2 L RDW 30.2 H Plt Count 253 07/04/19 15:20 Abdomen - Cellulitis Gram Stain - Final 07/04/19 15:20 Abdomen - Cellulitis Wound Culture - Final Staphylococcus Aureus Klebsiella Oxytoca Proteus Mirabilis Impressions: Abdomen/Pelvis CT 07/02/19 17:10 IMPRESSION: 1. Trace effusions and cardiomegaly. 2. No acute or suspicious intraabdominal abnormality. Soft tissue findings as above. Assessment and Plan - Diagnosis (1) Atrial fibrillation Qualifiers: Atrial fibrillation type: unspecified chronic Qualified Code(s): I48.20 - Chronic atrial fibrillation, unspecified; I48.2 - Chronic atrial fibrillation Is this a current diagnosis for this admission?: Yes Plan: Patient noted to be in a. fib with HR 90-100. Improved with treatment of anemia. (2) Hypothyroidism Qualifiers: Hypothyroidism type: unspecified Qualified Code(s): E03.9 - Hypothyroidism, unspecified Is this a current diagnosis for this admission?: Yes Plan: TSH 8.33, T3 0.76, T4 2.38. c/w levothyroxine. (3) Infective panniculitis Is this a current diagnosis for this admission?: Yes Plan: Abdominal panniculitis possibly infection. On Bactrim and topical nystatin for fungal coverage. She will be able to continue this at discharge once we have a proper disposition for her. Case management is consulted. (4) Iron deficiency anemia Qualifiers: Iron deficiency anemia type: unspecified iron deficiency Qualified Code(s): D50.9 - Iron deficiency anemia, unspecified Is this a current diagnosis for this admission?: Yes Plan: Hb 5.4 On admission. S/p 4units prbcs. Iron deficiency noted on iron studies &Venofer. Patient had denied any evidence of bleeding. Urinalysis was negative for blood CT abdomen pelvis had been done to evaluate for occult malignancy that may have contributed to her profound anemia and was also negative. Will need follow-up with Dr. Madison as outpatient (5) Morbid obesity Is this a current diagnosis for this admission?: Yes Plan: Strongly encourage lifestyle modification (6) Uncontrolled type 2 diabetes mellitus Qualifiers: Glycemic state: with hyperglycemia Qualified Code(s): E11.65 - Type 2 diabetes mellitus with hyperglycemia Is this a current diagnosis for this admission?: Yes Plan: Patient has not been taking her diabetic meds or check checking BG for 1 year. Last saw PCP 1yr ago. With hemoglobin A1c of 11.1%, would favor adding pre-meal lispro to Lantus reg imen. Due to concerns over her ability to comply with a more complicated regiment we have placed her on 70/30 premixed insulin 24u in am and 16u pm. Registered dietitian diabetes educator consulted. - Time Time Spent with patient: 15-24 minutes
[2019-07-06] MEDS: MELATONIN 3 MG TABLET PO SCH (22:28)
[2019-07-07] MEDS: LEVOTHYROXINE SODIUM 0.025 MG TABLET PO SCH (05:00)
[2019-07-07] MEDS: HUM INSULIN NPH/REG INSULIN HM 100 UNIT/1 ML 3 ML SUBCUT SCH ×2 (08:14→15:43)
[2019-07-07] MEDS: INSULIN LISPRO 100 UNIT/ML 3 ML VIAL SUBCUT SCH ×4 (08:18→21:50)
[2019-07-07] MEDS: FAMOTIDINE 20 MG TABLET PO SCH ×2 (09:18→21:51)
[2019-07-07] MEDS: SULFAMETHOXAZOLE/TRIMETHOPRIM 800-160 MG TABLET PO SCH ×2 (09:18→21:51)
[2019-07-07] MEDS: DOCUSATE SODIUM 100 MG CAPSULE PO SCH (09:18)
[2019-07-07] MEDS: MINERAL OIL/PETROLATUM,WHITE CREAM 114 GM TP SCH (09:21)
[2019-07-07] MEDS: NYSTATIN TOPICAL POWDER 15 GM TP SCH ×2 (09:29→20:00)
--- NOTE | 2019-07-07 17:16 | PDOC PROGRESS REPORT ---
Subjective Progress Note for:: 07/07/19 Subjective:: No adverse events overnight. No new complaints. Vital signs been stable. Eating and drinking without difficulty. Working with case management on a proper disposition. Case management has been in contact with the patient's APS grading machine operator. Reason For Visit: SYMPTOMATIC ANEMIA Physical Exam Vital Signs: Temp Pulse Resp BP Pulse Ox 97.9 F 92 18 106/36 L 100 07/07/19 15:21 07/07/19 15:21 07/07/19 15:21 07/07/19 15:21 07/07/19 15:21 Intake & Output 07/06/19 07/07/19 07/08/19 06:59 06:59 06:59 Intake Total 430 2310 480 Balance 430 2310 480 Weight 122.8 kg 124.2 kg General appearance: PRESENT: no acute distress, cooperative, disheveled, morbidly obese Respiratory exam: PRESENT: clear to auscultation chan, symmetrical, unlabored. ABSENT: accessory muscle use, chest wall tenderness, crackles, prolonged expiratory phas, retraction, rhonchi, tachypnea, wheezes Cardiovascular exam: PRESENT: irregular rhythm Pulses: PRESENT: normal carotid pulses Vascular exam: PRESENT: normal capillary refill GI/Abdominal exam: PRESENT: normal bowel sounds, soft. ABSENT: distended, guarding, rebound, tenderness Extremities exam: PRESENT: pedal edema, +1 edema, other - Chronic venous stasis. ABSENT: clubbing Musculoskeletal exam: PRESENT: normal inspection. ABSENT: deformity Neurological exam: PRESENT: alert, awake, oriented to person, oriented to place, oriented to situation Psychiatric exam: PRESENT: appropriate affect, normal mood Skin exam: PRESENT: dry, warm, other - Area of skin breakdown under her abdominal pannus shows diminishing erythema with no drainage Results Laboratory Results: 07/06/19 05:45 07/05/19 05:45 07/02/19 13:41 Blood Blood Culture - Final NO GROWTH IN 5 DAYS 07/02/19 15:01 Blood Blood Culture - Final NO GROWTH IN 5 DAYS Impressions: Abdomen/Pelvis CT 07/02/19 17:10 IMPRESSION: 1. Trace effusions and cardiomegaly. 2. No acute or suspicious intraabdominal abnormality. Soft tissue findings as above. Assessment and Plan - Diagnosis (1) Atrial fibrillation Qualifiers: Atrial fibrillation type: unspecified chronic Qualified Code(s): I48.20 - Chronic atrial fibrillation, unspecified; I48.2 - Chronic atrial fibrillation Is this a current diagnosis for this admission?: Yes Plan: Patient noted to be in a. fib with HR 90-100. Improved with treatment of anemia. (2) Hypothyroidism Qualifiers: Hypothyroidism type: unspecified Qualified Code(s): E03.9 - Hypothyroidism, unspecified Is this a current diagnosis for this admission?: Yes Plan: TSH 8.33, T3 0.76, T4 2.38. c/w levothyroxine. (3) Infective panniculitis Is this a current diagnosis for this admission?: Yes Plan: Abdominal panniculitis possibly infection. On Bactrim and topical nystatin for fungal coverage. She will be able to continue this at discharge once we have a proper disposition for her. Case management is consulted. (4) Iron deficiency anemia Qualifiers: Iron deficiency anemia type: unspecified iron deficiency Qualified Code(s): D50.9 - Iron deficiency anemia, unspecified Is this a current diagnosis for this admission?: Yes Plan: Hb 5.4 On admission. S/p 4units prbcs. Iron deficiency noted on iron studies &Venofer. Patient had denied any evidence of bleeding. Urinalysis was negative for blood CT abdomen pelvis had been done to evaluate for occult malignancy that may have contributed to her profound anemia and was also negative. Will need follow-up with Dr. Madison as outpatient (5) Morbid obesity Is this a current diagnosis for this admission?: Yes Plan: Strongly encourage lifestyle modification (6) Uncontrolled type 2 diabetes mellitus Qualifiers: Glycemic state: with hyperglycemia Qualified Code(s): E11.65 - Type 2 diabetes mellitus with hyperglycemia Is this a current diagnosis for this admission?: Yes Plan: Patient has not been taking her diabetic meds or check checking BG for 1 year. Last saw PCP 1yr ago. With hemoglobin A1c of 11.1%, would favor adding pre-meal lispro to Lantus regimen. Due to concerns over her ability to comply with a more complicated regiment we have placed her on 70/30 premixed insulin 28u in am and 20u pm. This may require adjustment if her glucoses are not controlled on it. Registered dietitian medical educator consulted. - Time Time Spent with patient: 15-24 minutes
[2019-07-08] MEDS: MELATONIN 3 MG TABLET PO SCH (01:43)
[2019-07-08] MEDS: LEVOTHYROXINE SODIUM 0.025 MG TABLET PO SCH (05:20)
[2019-07-08] MEDS: INSULIN LISPRO 100 UNIT/ML 3 ML VIAL SUBCUT SCH ×4 (08:00→22:05)
[2019-07-08] MEDS: HUM INSULIN NPH/REG INSULIN HM 100 UNIT/1 ML 3 ML SUBCUT SCH ×2 (08:03→16:30)
[2019-07-08] MEDS: SULFAMETHOXAZOLE/TRIMETHOPRIM 800-160 MG TABLET PO SCH ×2 (10:45→22:06)
[2019-07-08] MEDS: FAMOTIDINE 20 MG TABLET PO SCH ×2 (10:45→22:06)
[2019-07-08] MEDS: DOCUSATE SODIUM 100 MG CAPSULE PO SCH (10:45)
[2019-07-08] MEDS: MINERAL OIL/PETROLATUM,WHITE CREAM 114 GM TP SCH (10:45)
[2019-07-08] MEDS: NYSTATIN TOPICAL POWDER 15 GM TP SCH ×2 (10:45→19:00)
[2019-07-08] MEDS ORDERED: ONDANSETRON HCL INJ/PF 4 MG/2 ML SDV IV PRN (15:00)
--- NOTE | 2019-07-08 16:54 | PDOC PROGRESS REPORT ---
Subjective Progress Note for:: 07/08/19 Subjective:: No adverse events overnight. No new complaints. Vital signs been stable. Eating and drinking without difficulty. Working with case management on a proper disposition. Case management has been in contact with the patient's APS home assessment nurse. Reason For Visit: SYMPTOMATIC ANEMIA Physical Exam Vital Signs: Temp Pulse Resp BP Pulse Ox 97.5 F 107 H 18 102/44 L 97 07/08/19 01:00 07/08/19 14:00 07/08/19 01:00 07/08/19 01:00 07/08/19 01:00 Intake & Output 07/07/19 07/08/19 07/09/19 06:59 06:59 06:59 Intake Total 2310 1230 1230 Balance 2310 1230 1230 Weight 124.2 kg 124.4 kg General appearance: PRESENT: no acute distress, cooperative, disheveled, morbidly obese Respiratory exam: PRESENT: clear to auscultation chan, symmetrical, unlabored. ABSENT: accessory muscle use, chest wall tenderness, crackles, prolonged expiratory phas, retraction, rhonchi, tachypnea, wheezes Cardiovascular exam: PRESENT: irregular rhythm Pulses: PRESENT: normal carotid pulses Vascular exam: PRESENT: normal capillary refill GI/Abdominal exam: PRESENT: normal bowel sounds, soft. ABSENT: distended, gua rding, rebound, tenderness Extremities exam: PRESENT: pedal edema, +1 edema, other - Chronic venous stasis. ABSENT: clubbing Musculoskeletal exam: PRESENT: normal inspection. ABSENT: deformity Neurological exam: PRESENT: alert, awake, oriented to person, oriented to place, oriented to situation Psychiatric exam: PRESENT: appropriate affect, normal mood Skin exam: PRESENT: dry, warm, other - Area of skin breakdown under her abdominal pannus shows diminishing erythema with no drainage Results Laboratory Results: 07/06/19 05:45 07/05/19 05:45 07/06/19 08:27 Clean Catch Midstream Urine Culture - Final Yeast, Not Myriam Albicans Mixed Urogenital Essence 07/02/19 13:41 Blood Blood Culture - Final NO GROWTH IN 5 DAYS 07/02/19 15:01 Blood Blood Culture - Final NO GROWTH IN 5 DAYS Impressions: Abdomen/Pelvis CT 07/02/19 17:10 IMPRESSION: 1. Trace effusions and cardiomegaly. 2. No acute or suspicious intraabdominal abnormality. Soft tissue findings as above. Assessment and Plan - Diagnosis (1) Atrial fibrillation Qualifiers: Atrial fibrillation type: unspecified chronic Qualified Code(s): I48.20 - Chronic atrial fibrillation, unspecified; I48.2 - Chronic atrial fibrillation Is this a current diagnosis for this admission?: Yes Plan: Patient noted to be in a. fib with HR 90-100. Improved with treatment of anemia. (2) Hypothyroidism Qualifiers: Hypothyroidism type: unspecified Qualified Code(s): E03.9 - Hypothyroidism, unspecified Is this a current diagnosis for this admission?: Yes Plan: TSH 8.33, T3 0.76, T4 2.38. c/w levothyroxine. (3) Infective panniculitis Is this a current diagnosis for this admission?: Yes Plan: Abdominal panniculitis possibly infection. On Bactrim and topical nystatin for fungal coverage. She will be able to continue this at discharge once we have a proper disposition for her. Case management is consulted. (4) Iron deficiency anemia Qualifiers: Iron deficiency anemia type: unspecified iron deficiency Qualified Code(s): D50.9 - Iron deficiency anemia, unspecified Is this a current diagnosis for this admission?: Yes Plan: Hb 5.4 On admission. S/p 4units prbcs. Iron deficiency noted on iron studies &Venofer. Patient had denied any evidence of bleeding. Urinalysis was negative for blood CT abdomen pelvis had been done to evaluate for occult malignancy that may have contributed to her profound anemia and was also negative. Will need follow-up with Dr. Madison as outpatient (5) Morbid obesity Is this a current diagnosis for this admission?: Yes Plan: Strongly encourage lifestyle modification (6) Uncontrolled type 2 diabetes mellitus Qualifiers: Glycemic state: with hyperglycemia Qualified Code(s): E11.65 - Type 2 diabetes mellitus with hyperglycemia Is this a current diagnosis for this admission?: Yes Plan: Patient has not been taking her diabetic meds or check checking BG for 1 year. Last saw PCP 1yr ago. With hemoglobin A1c of 11.1%, would favor adding pre-meal lispro to Lantus regimen. Due to concerns over her ability to comply with a more complicated regiment we have placed her on 70/30 premixed insulin 28u in am and 20u pm. This may require adjustment if her glucoses are not controlled on it. Registered dietitian staff educator consulted. - Time Time Spent with patient: 15-24 minutes
[2019-07-09] MEDS: MELATONIN 3 MG TABLET PO SCH ×2 (04:14→21:45)
[2019-07-09] MEDS: LEVOTHYROXINE SODIUM 0.025 MG TABLET PO SCH (06:37)
[2019-07-09] MEDS: INSULIN LISPRO 100 UNIT/ML 3 ML VIAL SUBCUT SCH ×4 (08:28→21:45)
[2019-07-09] MEDS: HUM INSULIN NPH/REG INSULIN HM 100 UNIT/1 ML 3 ML SUBCUT SCH ×2 (08:28→16:27)
[2019-07-09] MEDS: SULFAMETHOXAZOLE/TRIMETHOPRIM 800-160 MG TABLET PO SCH ×2 (09:50→21:45)
[2019-07-09] MEDS: MINERAL OIL/PETROLATUM,WHITE CREAM 114 GM TP SCH (09:50)
[2019-07-09] MEDS: DOCUSATE SODIUM 100 MG CAPSULE PO SCH (09:50)
[2019-07-09] MEDS: FAMOTIDINE 20 MG TABLET PO SCH ×2 (09:50→21:45)
[2019-07-09] MEDS: NYSTATIN TOPICAL POWDER 15 GM TP SCH ×2 (09:50→18:21)
--- NOTE | 2019-07-09 15:38 | PDOC PROGRESS REPORT ---
Subjective Progress Note for:: 07/09/19 Subjective:: No adverse events overnight. No new complaints. Vital signs been stable. Eating and drinking without difficulty. Working with case management on a proper disposition. Case management has been in contact with the patient's APS conference interpreter. Reason For Visit: SYMPTOMATIC ANEMIA Physical Exam Vital Signs: Temp Pulse Resp BP Pulse Ox 97.2 F 110 H 18 107/44 L 99 07/08/19 23:37 07/09/19 07:00 07/08/19 23:37 07/08/19 23:37 07/08/19 23:37 Intake & Output 07/08/19 07/09/19 07/10/19 06:59 06:59 06:59 Intake Total 1230 2730 770 Balance 1230 2730 770 Weight 124.4 kg 122.8 kg General appearance: PRESENT: no acute distress, cooperative, disheveled, morbidly obese Respiratory exam: PRESENT: clear to auscultation chan, symmetrical, unlabored. ABSENT: accessory muscle use, chest wall tenderness, crackles, prolonged expiratory phas, retraction, rhonchi, tachypnea, wheezes Cardiovascular exam: PRESENT: irregular rhythm Pulses: PRESENT: normal carotid pulses Vascular exam: PRESENT: normal capillary refill GI/Abdominal exam: PRESENT: normal bowel sounds, soft. ABSENT: distended, guard ing, rebound, tenderness Extremities exam: PRESENT: pedal edema, +1 edema, other - Chronic venous stasis. ABSENT: clubbing Musculoskeletal exam: PRESENT: normal inspection. ABSENT: deformity Neurological exam: PRESENT: alert, awake, oriented to person, oriented to place, oriented to situation Psychiatric exam: PRESENT: appropriate affect, normal mood Skin exam: PRESENT: dry, warm, other - Area of skin breakdown under her abdominal pannus shows diminishing erythema with no drainage Results Laboratory Results: 07/06/19 05:45 07/05/19 05:45 07/06/19 08:27 Clean Catch Midstream Urine Culture - Final Yeast, Not Myriam Albicans Mixed Urogenital Essence Impressions: Abdomen/Pelvis CT 07/02/19 17:10 IMPRESSION: 1. Trace effusions and cardiomegaly. 2. No acute or suspicious intraabdominal abnormality. Soft tissue findings as above. Assessment and Plan - Diagnosis (1) Atrial fibrillation Qualifiers: Atrial fibrillation type: unspecified chronic Qualified Code(s): I48.20 - Chronic atrial fibrillation, unspecified; I48.2 - Chronic atrial fibrillation Is this a current diagnosis for this admission?: Yes Plan: Patient noted to be in a. fib with HR 90-100. Improved with treatment of anemia. (2) Hypothyroidism Qualifiers: Hypothyroidism type: unspecified Qualified Code(s): E03.9 - Hypothyroidism, unspecified Is this a current diagnosis for this admission?: Yes Plan: TSH 8.33, T3 0.76, T4 2.38. c/w levothyroxine. (3) Infective panniculitis Is this a current diagnosis for this admission?: Yes Plan: Abdominal panniculitis possibly infection. On Bactrim and topical nystatin for fungal coverage. She will be able to continue this at discharge once we have a proper disposition for her. Case management is consulted. (4) Iron deficiency anemia Qualifiers: Iron deficiency anemia type: unspecified iron deficiency Qualified Code(s): D50.9 - Iron deficiency anemia, unspecified Is this a current diagnosis for this admission?: Yes Plan: Hb 5.4 On admission. S/p 4units prbcs. Iron deficiency noted on iron studies &Venofer. Patient had denied any evidence of bleeding. Urinalysis was negative for blood CT abdomen pelvis had been done to evaluate for occult malignancy that may have contributed to her profound anemia and was also negative. Will need follow-up with Dr. Madison as outpatient (5) Morbid obesity Is this a current diagnosis for this admission?: Yes Plan: Strongly encourage lifestyle modification (6) Uncontrolled type 2 diabetes mellitus Qualifiers: Glycemic state: with hyperglycemia Qualified Code(s): E11.65 - Type 2 diabetes mellitus with hyperglycemia Is this a current diagnosis for this admission?: Yes Plan: Patient has not been taking her diabetic meds or check checking BG for 1 year. Last saw PCP 1yr ago. With hemoglobin A1c of 11.1%, would favor adding pre-meal lispro to Lantus regimen. Due to concerns over her ability to comply with a more complicated regiment we have placed her on 70/30 premixed insulin 28u in am and 20u pm. This may require adjustment if her glucoses are not controlled on it. Registered dietitian asthma educator consulted. - Time Time Spent with patient: 15-24 minutes
[2019-07-10] MEDS: LEVOTHYROXINE SODIUM 0.025 MG TABLET PO SCH (06:29)
[2019-07-10] MEDS: HUM INSULIN NPH/REG INSULIN HM 100 UNIT/1 ML 3 ML SUBCUT SCH ×2 (07:43→16:47)
[2019-07-10] MEDS: INSULIN LISPRO 100 UNIT/ML 3 ML VIAL SUBCUT SCH ×4 (07:43→22:24)
[2019-07-10] MEDS: SULFAMETHOXAZOLE/TRIMETHOPRIM 800-160 MG TABLET PO SCH ×2 (10:41→22:23)
[2019-07-10] MEDS: FAMOTIDINE 20 MG TABLET PO SCH ×2 (10:41→22:23)
[2019-07-10] MEDS: DOCUSATE SODIUM 100 MG CAPSULE PO SCH (10:41)
[2019-07-10] MEDS: NYSTATIN TOPICAL POWDER 15 GM TP SCH ×2 (10:42→16:49)
[2019-07-10] MEDS: MINERAL OIL/PETROLATUM,WHITE CREAM 114 GM TP SCH (10:42)
--- NOTE | 2019-07-10 12:27 | PDOC PROGRESS REPORT ---
Subjective Progress Note for:: 07/10/19 Subjective:: No adverse events overnight. No new complaints. Vital signs been stable. Eating and drinking without difficulty. Working with case management on a proper disposition. Case management has been in contact with the patient's APS stacker and sorter operator. We thought that she had gotten a bed at [facility] and had planned to discharge her there, only to find out that that was not the case. At this point the patient wants to go to [facility] and case management is working on getting her a room there. Reason For Visit: SYMPTOMATIC ANEMIA Physical Exam Vital Signs: Temp Pulse Resp BP Pulse Ox 98.1 F 99 21 H 113/55 L 97 07/10/19 08:25 07/10/19 08:25 07/10/19 08:25 07/10/19 08:25 07/10/19 08:25 Intake & Output 07/09/19 07/10/19 07/11/19 06:59 06:59 06:59 Intake Total 2730 1630 Balance 2730 1630 Weight 122.8 kg 123.7 kg General appearance: PRESENT: no acute distress, cooperative, disheveled, morbidly obese Respiratory exam: PRESENT: clear to auscultation chan, symmetrical, unlabored. ABSENT: accessory muscle use, chest wall tenderness, crackles, prolonged expiratory phas, retraction, rhonchi, tachypnea, wheezes Cardiovascular exam: PRESENT: irregular rhythm Pulses: PRESENT: normal carotid pulses Vascular exam: PRESENT: normal capillary refill GI/Abdominal exam: PRESENT: normal bowel sounds, soft. ABSENT: distended, guarding, rebound, tenderness Extremities exam: PRESENT: pedal edema, +1 edema, other - Chronic venous stasis. ABSENT: clubbing Musculoskeletal exam: PRESENT: normal inspection. ABSENT: deformity Neurological exam: PRESENT: alert, awake, oriented to person, oriented to place, oriented to situation Psychiatric exam: PRESENT: appropriate affect, normal mood Skin exam: PRESENT: dry, warm, other - Area of skin breakdown under her a bdominal pannus shows diminishing erythema with no drainage Results Laboratory Results: 07/06/19 05:45 07/05/19 05:45 Impressions: Abdomen/Pelvis CT 07/02/19 17:10 IMPRESSION: 1. Trace effusions and cardiomegaly. 2. No acute or suspicious intraabdominal abnormality. Soft tissue findings as above. Assessment and Plan - Diagnosis (1) Atrial fibrillation Qualifiers: Atrial fibrillation type: unspecified chronic Qualified Code(s): I48.20 - Chronic atrial fibrillation, unspecified; I48.2 - Chronic atrial fibrillation Is this a current diagnosis for this admission?: Yes Plan: Patient noted to be in a. fib with HR 90-100. Improved with treatment of anemia. Has been clinically stable for days. (2) Hypothyroidism Qualifiers: Hypothyroidism type: unspecified Qualified Code(s): E03.9 - Hypothyroidism, unspecified Is this a current diagnosis for this admission?: Yes Plan: Continue levothyroxine. (3) Infective panniculitis Is this a current diagnosis for this admission?: Yes Plan: Abdominal panniculitis possibly infection. On Bactrim and topical nystatin for fungal coverage. She will be able to continue this at discharge once we have a proper disposition for her, but at this rate she will likely complete her treatment before she has to leave for the assisted living facility. Case management is consulted. (4) Iron deficiency anemia Qualifiers: Iron deficiency anemia type: unspecified iron deficiency Qualified Code(s): D50.9 - Iron deficiency anemia, unspecified Is this a current diagnosis for this admission?: Yes Plan: Hb 5.4 On admission. S/p 4units prbcs. Iron deficiency noted on iron studies &Venofer. Patient had denied any evidence of bleeding. Urinalysis was negative for blood CT abdomen pelvis had been done to evaluate for occult malignancy that may have contributed to her profound anemia and was also negative. Will need follow-up with Dr. Madison as outpatient (5) Morbid obesity Is this a current diagnosis for this admission?: Yes Plan: Strongly encourage lifestyle modification (6) Uncontrolled type 2 diabetes mellitus Qualifiers: Glycemic state: with hyperglycemia Qualified Code(s): E11.65 - Type 2 diabetes mellitus with hyperglycemia Is this a current diagnosis for this admission?: Yes Plan: Patient has not been taking her diabetic meds or check checking BG for 1 year. Last saw PCP 1yr ago. With hemoglobin A1c of 11.1%, would favor adding pre-meal lispro to Lantus regimen. Due to concerns over her ability to comply with a more complicated regiment we have placed her on 70/30 premixed insulin. Have further adjusted her insulin regimen to get improved glycemic control. Registered dietitian hospice educator consulted. - Time Time Spent with patient: 15-24 minutes
[2019-07-10] MEDS: MELATONIN 3 MG TABLET PO SCH (22:23)
[2019-07-11] MEDS: LEVOTHYROXINE SODIUM 0.025 MG TABLET PO SCH (05:27)
[2019-07-11] MEDS ORDERED: HUM INSULIN NPH/REG INSULIN HM 100 UNIT/1 ML 3 ML SUBCUT SCH (08:00)
[2019-07-11] MEDS: INSULIN LISPRO 100 UNIT/ML 3 ML VIAL SUBCUT SCH ×4 (08:33→22:14)
[2019-07-11] MEDS: SULFAMETHOXAZOLE/TRIMETHOPRIM 800-160 MG TABLET PO SCH ×2 (10:28→22:13)
[2019-07-11] MEDS: FAMOTIDINE 20 MG TABLET PO SCH ×2 (10:28→22:13)
[2019-07-11] MEDS: DOCUSATE SODIUM 100 MG CAPSULE PO SCH (10:28)
[2019-07-11] MEDS: MINERAL OIL/PETROLATUM,WHITE CREAM 114 GM TP SCH (10:32)
[2019-07-11] MEDS: NYSTATIN TOPICAL POWDER 15 GM TP SCH ×2 (10:33→16:49)
--- NOTE | 2019-07-11 11:52 | PDOC PROGRESS REPORT ---
Subjective Progress Note for:: 07/11/19 Subjective:: Patient reports that her abdomen is better. Awaiting placement at [facility]. Reason For Visit: SYMPTOMATIC ANEMIA Physical Exam Vital Signs: Temp Pulse Resp BP Pulse Ox 98.2 F 97 19 129/57 H 100 07/11/19 07:49 07/11/19 07:49 07/11/19 07:49 07/11/19 07:49 07/11/19 07:49 Intake & Output 07/10/19 07/11/19 07/12/19 06:59 06:59 06:59 Intake Total 1630 1585 Balance 1630 1585 Weight 123.7 kg 123.7 kg General appearance: PRESENT: no acute distress, cooperative, morbidly obese, well-developed Head exam: PRESENT: atraumatic, normocephalic Mouth exam: PRESENT: moist, tongue midline Respiratory exam: PRESENT: clear to auscultation chan, symmetrical, unlabored. ABSENT: prolonged expiratory phas, rales, rhonchi, tachypnea, wheezes Cardiovascular exam: PRESENT: RRR, +S1, +S2 GI/Abdominal exam: PRESENT: other - Patient up and eating lunch. Did not examine abdomen due to large pendulous morphology. Rectal exam: PRESENT: deferred Neurological exam: PRESENT: alert, awake, oriented to person, oriented to place, oriented to time, oriented to situation, CN II-XII grossly intact Psychiatric exam: PRESENT: appropriate affect, normal mood. ABSENT: agitated, anxious Focused psych exam: ABSENT: delusional, paranoid, restlessness Skin exam: PRESENT: dry, normal color, warm Results Laboratory Results: 07/06/19 05:45 07/05/19 05:45 Impressions: Abdomen/Pelvis CT 07/02/19 17:10 IMPRESSION: 1. Trace effusions and cardiomegaly. 2. No acute or suspicious intraabdominal abnormality. Soft tissue findings as above. Assessment and Plan - Diagnosis (1) New onset atrial fibrillation Is this a current diagnosis for this admission?: Yes Plan: 07/11/2019 Heart rate is still irregular. Because of the borderline tachycardia I will start metoprolol. Will need to decide on anticoagulation after reviewing the risks vs the benefits. (2) Hypothyroidism Qualifiers: Hypothyroidism type: unspecified Qualified Code(s): E03.9 - Hypothyroidism, unspecified Is this a current diagnosis for this admission?: Yes Plan: Continue levothyroxine. 07/11/2019 Recheck thyroid studies in 10 - 12 weeks (3) Infective panniculitis Is this a current diagnosis for this admission?: Yes Plan: Abdominal panniculitis possibly infection. On Bactrim and topical nystatin for fungal coverage. She will be able to continue this at discharge once we have a proper disposition for her, but at this rate she will likely complete her treatment before she has to leave for the assisted living facility. Case management is consulted. 07/11/2019 Complete antibiotics as ordered. Consider skin fold moisture management system to prevent recurrence (4) Iron deficiency anemia Qualifiers: Iron deficiency anemia type: unspecified iron deficiency Qualified Code(s): D50.9 - Iron deficiency anemia, unspecified Is this a current diagnosis for this admission?: Yes Plan: Hb 5.4 On admission. S/p 4units prbcs. Iron deficiency noted on iron studies &Venofer. Patient had denied any evidence of bleeding. Urinalysis was negative for blood CT abdomen pelvis had been done to evaluate for occult malignancy that may have contributed to her profound anemia and was also negative. Will need follow-up with Dr. Madison as outpatient 07/11/2019 Will initiate oral iron therapy. (5) Uncontrolled type 2 diabetes mellitus Qualifiers: Glycemic state: with hyperglycemia Qualified Code(s): E11.65 - Type 2 diabetes mellitus with hyperglycemia Is this a current diagnosis for this admission?: Yes Plan: Patient has not been taking her diabetic meds or check checking BG for 1 year. Last saw PCP 1yr ago. With hemoglobin A1c of 11.1%, would favor adding pre-meal lispro to Lantus regimen. Due to concerns over her ability to comply with a more complicated regiment we have placed her on 70/30 premixed insulin. Have further adjusted her insulin regimen to get improved glycemic control. Registered dietitian ems educator consulted. 07/11/2019 Accuchecks still high. I will increase AM and PM 70/30 - Time Time Spent with patient: 15-24 minutes Medications reviewed and adjusted accordingly: Yes Anticipated discharge: SNF
[2019-07-11] MEDS: HUM INSULIN NPH/REG INSULIN HM 100 UNIT/1 ML 3 ML SUBCUT SCH (16:48)
[2019-07-11] MEDS: MELATONIN 3 MG TABLET PO SCH (22:13)
[2019-07-12] MEDS: LEVOTHYROXINE SODIUM 0.025 MG TABLET PO SCH (05:13)
[2019-07-12] MEDS: HUM INSULIN NPH/REG INSULIN HM 100 UNIT/1 ML 3 ML SUBCUT SCH ×2 (07:32→17:16)
[2019-07-12] MEDS: INSULIN LISPRO 100 UNIT/ML 3 ML VIAL SUBCUT SCH ×4 (07:33→21:31)
[2019-07-12] MEDS: FERROUS SULFATE 325 MG TABLET PO SCH ×2 (09:19→17:15)
[2019-07-12] MEDS: DOCUSATE SODIUM 100 MG CAPSULE PO SCH (09:19)
[2019-07-12] MEDS: SULFAMETHOXAZOLE/TRIMETHOPRIM 800-160 MG TABLET PO SCH (09:20)
[2019-07-12] MEDS: FAMOTIDINE 20 MG TABLET PO SCH ×2 (09:20→21:31)
[2019-07-12] MEDS: NYSTATIN TOPICAL POWDER 15 GM TP SCH (09:21)
[2019-07-12] MEDS: MINERAL OIL/PETROLATUM,WHITE CREAM 114 GM TP SCH (09:21)
[2019-07-12] MEDS: METOPROLOL SUCCINATE 25 MG TAB.SR.24H PO SCH (09:22)
[2019-07-12] MEDS ORDERED: FERROUS SULFATE 325 MG TABLET PO SCH (10:00)
[2019-07-12] MEDS: MELATONIN 3 MG TABLET PO SCH (21:29)
[2019-07-13] MEDS: LEVOTHYROXINE SODIUM 0.025 MG TABLET PO SCH (05:28)
[2019-07-13] MEDS: INSULIN LISPRO 100 UNIT/ML 3 ML VIAL SUBCUT SCH ×3 (08:27→17:43)
[2019-07-13] MEDS: HUM INSULIN NPH/REG INSULIN HM 100 UNIT/1 ML 3 ML SUBCUT SCH ×2 (08:27→17:39)
[2019-07-13] MEDS: FAMOTIDINE 20 MG TABLET PO SCH ×2 (12:56→21:17)
[2019-07-13] MEDS: METOPROLOL SUCCINATE 25 MG TAB.SR.24H PO SCH (12:57)
[2019-07-13] MEDS: DOCUSATE SODIUM 100 MG CAPSULE PO SCH (12:58)
[2019-07-13] MEDS: MINERAL OIL/PETROLATUM,WHITE CREAM 114 GM TP SCH (12:59)
[2019-07-13] MEDS: FERROUS SULFATE 325 MG TABLET PO SCH ×2 (13:02→17:43)
--- NOTE | 2019-07-13 17:36 | PDOC PROGRESS REPORT ---
Subjective Progress Note for:: 07/13/19 Subjective:: MICHAELA WESLEY is a 78 year old female past medical history significant for hypertension, hyperlipidemia, DM 2, hypothyroidism, and obesity who was admitted 07/02/2019 with symptomatic anemia. Patient was seen on morning rounds. She is found sitting up to the recliner, comfortably, on room air. She reports that she is feeling well today. Patient denies fever, chest pain, palpitations, dyspnea, abdominal pain, and GI symptoms. Has no questions or concerns at this time. No concerns per nursing. Reason For Visit: SYMPTOMATIC ANEMIA Physical Exam Vital Signs: Temp Pulse Resp BP Pulse Ox 98.0 F 97 17 118/70 100 07/13/19 15:18 07/13/19 15:18 07/13/19 15:18 07/13/19 15:18 07/13/19 15:18 Intake & Output 07/12/19 07/13/19 07/14/19 06:59 06:59 06:59 Intake Total 1045 1025 750 Balance 1045 1025 750 Weight 123.7 kg 123 kg 123 kg General appearance: PRESENT: no acute distress, cooperative, well-developed, well-nourished Head exam: PRESENT: atraumatic, normocephalic Eye exam: PRESENT: conjunctiva pink, EOMI, PERRLA. ABSENT: scleral icterus Mouth exam: PRESENT: moist, tongue midline Respiratory exam: PRESENT: clear to auscultation chan, symmetrical, unlabored. ABSENT: rales, rhonchi, wheezes Cardiovascular exam: PRESENT: irregular rhythm. ABSENT: diastolic murmur, rubs, systolic murmur Pulses: PRESENT: normal dorsalis pedis pul Vascular exam: PRESENT: normal capillary refill GI/Abdominal exam: PRESENT: normal bowel sounds, soft, other - abdominal pannus. ABSENT: distended, guarding, rebound, tenderness Rectal exam: PRESENT: deferred Extremities exam: PRESENT: full ROM. ABSENT: calf tenderness, clubbing, pedal edema Musculoskeletal exam: PRESENT: ambulatory Neurological exam: PRESENT: alert, awake, oriented to person, oriented to place, oriented to time, oriented to situation, CN II-XII grossly intact. ABSENT: motor sensory deficit Psychiatric exam: PRESENT: appropriate affect, normal mood. ABSENT: homicidal ideation, suicidal ideation Skin exam: PRESENT: dry, intact, warm, other - Multiple excoriations to pannus. Linear right side wound w/ grannulation tissue, no drainage or surrounding errythema. Cellulitis is resolved.. ABSENT: cyanosis, rash Results Laboratory Results: 07/06/19 05:45 07/05/19 05:45 Impressions: Abdomen/Pelvis CT 07/02/19 17:10 IMPRESSION: 1. Trace effusions and cardiomegaly. 2. No acute or suspicious intraabdominal abnormality. Soft tissue findings as above. Assessment and Plan - Diagnosis (1) Iron deficiency anemia Qualifiers: Iron deficiency anemia type: unspecified iron deficiency Qualified Code(s): D50.9 - Iron deficiency anemia, unspecified Is this a current diagnosis for this admission?: Yes Plan: Hb 5.4 On admission. S/p 4 units prbcs and Venofer. Patient had denied any evidence of bleeding. Urinalysis was negative for blood CT abdomen pelvis had been done to evaluate for occult malignancy that may have contributed to her profound anemia and was also negative. Continue daily multivitamin and iron replacement. Follow up with Dr. Madison in 2 weeks. (2) Symptomatic anemia Is this a current diagnosis for this admission?: Yes Plan: Resolved. Secondary to #1 (3) Atrial fibrillation Qualifiers: Atrial fibrillation type: unspecified chronic Qualified Code(s): I48.20 - Chronic atrial fibrillation, unspecified; I48.2 - Chronic atrial fibrillation Is this a current diagnosis for this admission?: Yes Plan: Patient noted to be in a. fib with HR 90-100. Improved with treatment of anemia. Started on metoprolol for improved rate control; tolerating well. [id number] score 4.8% yearly CVA risk. [id number] score 8.4% yearly hemorrhage risk. Recommend against chronic anticoagulation at this time. Do recommend daily Aspirin therapy. (4) Hypothyroidism Qualifiers: Hypothyroidism type: unspecified Qualified Code(s): E03.9 - Hypothyroidism, unspecified Is this a current diagnosis for this admission?: Yes Plan: Continue levothyroxine. Recheck thyroid studies in 10 - 12 weeks (5) Uncontrolled type 2 diabetes mellitus Qualifiers: Glycemic state: with hyperglycemia Qualified Code(s): E11.65 - Type 2 diabetes mellitus with hyperglycemia Is this a current diagnosis for this admission?: Yes Plan: Patient has not been taking her diabetic meds or check checking BG for 1 year. Last saw PCP 1yr ago. Hemoglobin A1c of 11.1% Excellent glucose control with Insulin 70/30; 34 units with breakfast and 28 units with dinner. wood box maker and nuclear process engineer were consulted. Patient has been taught how to self administer insulin; does well with Pen devices due to vision difficulties. (6) Morbid obesity Is this a current diagnosis for this admission?: Yes Plan: BMI 48.0 Strongly encourage lifestyle modification (7) Abdominal wall cellulitis Is this a current diagnosis for this admission?: Yes Plan: Significantly improved; erythema has resolved. Shallow wounds w/ evidence of healing. Granulation tissue noted to base of the largest wound on lower right side. No longer w/ purulent drainage. Has completed course of Bactrim. Consider skin fold moisture management system to prevent recurrence (such as over the counter Interdry-Silver). (8) Pannus, abdominal Is this a current diagnosis for this admission?: Yes (9) UTI (urinary tract infection) Qualifiers: Urinary tract infection type: acute cystitis Hematuria presence: with hematuria Qualified Code(s): N30.01 - Acute cystitis with hematuria Is this a current diagnosis for this admission?: Yes Plan: Blood cultures NGTD. Has completed full course of antibiotics. - Time Time Spent with patient: 15-24 minutes Anticipated discharge: Home with Homehealth Within: Other - Resolution of Appeal.
[2019-07-13] MEDS: MELATONIN 3 MG TABLET PO SCH (21:17)
[2019-07-14] MEDS: INSULIN LISPRO 100 UNIT/ML 3 ML VIAL SUBCUT SCH ×5 (04:40→21:57)
[2019-07-14] MEDS: LEVOTHYROXINE SODIUM 0.025 MG TABLET PO SCH (05:45)
[2019-07-14] MEDS: FERROUS SULFATE 325 MG TABLET PO SCH ×2 (08:12→17:22)
[2019-07-14] MEDS: HUM INSULIN NPH/REG INSULIN HM 100 UNIT/1 ML 3 ML SUBCUT SCH ×2 (08:23→16:46)
[2019-07-14] MEDS: DOCUSATE SODIUM 100 MG CAPSULE PO SCH (09:43)
[2019-07-14] MEDS: METOPROLOL SUCCINATE 25 MG TAB.SR.24H PO SCH (09:43)
[2019-07-14] MEDS: FAMOTIDINE 20 MG TABLET PO SCH ×2 (09:43→21:57)
[2019-07-14] MEDS: ASPIRIN 81 MG TABLET, CHEWABLE PO SCH (09:43)
[2019-07-14] MEDS: MINERAL OIL/PETROLATUM,WHITE CREAM 114 GM TP SCH (09:46)
--- NOTE | 2019-07-14 14:15 | PDOC PROGRESS REPORT ---
Subjective Progress Note for:: 07/14/19 Subjective:: MICHAELA WESLEY is a 78 year old female past medical history significant for hypertension, hyperlipidemia, DM 2, hypothyroidism, and obesity who was admitted 07/02/2019 with symptomatic anemia. Patient was seen on afternoon rounds. She is found sitting up to the recliner, comfortably, on room air. She reports that she is feeling well today. Patient denies fever, chest pain, palpitations, dyspnea, abdominal pain, and GI symptoms. Has no questions or concerns at this time. No concerns per nursing. Reason For Visit: SYMPTOMATIC ANEMIA Physical Exam Vital Signs: Temp Pulse Resp BP Pulse Ox 98.1 F 61 18 108/58 L 92 07/14/19 10:43 07/14/19 10:43 07/14/19 10:43 07/14/19 10:43 07/14/19 10:43 Intake & Output 07/13/19 07/14/19 07/15/19 06:59 06:59 06:59 Intake Total 1025 1905 480 Balance 1025 1905 480 Weight 123 kg 129.2 kg General appearance: PRESENT: no acute distress, cooperative, well-developed, w ell-nourished Head exam: PRESENT: atraumatic, normocephalic Eye exam: PRESENT: conjunctiva pink, EOMI, PERRLA. ABSENT: scleral icterus Mouth exam: PRESENT: moist, tongue midline Teeth exam: PRESENT: poor dentation Respiratory exam: PRESENT: clear to auscultation chan, symmetrical, unlabored. ABSENT: rales, rhonchi, wheezes Cardiovascular exam: PRESENT: irregular rhythm. ABSENT: diastolic murmur, rubs, systolic murmur Pulses: PRESENT: normal dorsalis pedis pul Vascular exam: PRESENT: normal capillary refill Extremities exam: PRESENT: full ROM. ABSENT: calf tenderness, clubbing, pedal edema Musculoskeletal exam: PRESENT: ambulatory Neurological exam: PRESENT: alert, awake, oriented to person, oriented to place, oriented to time, oriented to situation, CN II-XII grossly intact. ABSENT: motor sensory deficit Psychiatric exam: PRESENT: appropriate affect, normal mood. ABSENT: homicidal i deation, suicidal ideation Skin exam: PRESENT: dry, warm. ABSENT: cyanosis, intact, rash Results Laboratory Results: 07/06/19 05:45 07/05/19 05:45 Impressions: Abdomen/Pelvis CT 07/02/19 17:10 IMPRESSION: 1. Trace effusions and cardiomegaly. 2. No acute or suspicious intraabdominal abnormality. Soft tissue findings as above. Assessment and Plan - Diagnosis (1) Iron deficiency anemia Qualifiers: Iron deficiency anemia type: unspecified iron deficiency Qualified Code(s): D50.9 - Iron deficiency anemia, unspecified Is this a current diagnosis for this admission?: Yes Plan: Hb 5.4 On admission. S/p 4 units PRBC and Venofer. Patient had denied any evidence of bleeding. Urinalysis was negative for blood CT abdomen pelvis had been done to evaluate for occult malignancy that may have contributed to her profound anemia and was also negative. Continue daily multivitamin and iron replacement. Follow up with Dr. Madison in 2 weeks. Will recheck CBC in AM to confirm stability. Due to patient's long stay, may be ready for additional IV iron. Will discuss with Dr. Madison following lab result tomorrow. (2) Symptomatic anemia Is this a current diagnosis for this admission?: Yes Plan: Resolved. Secondary to #1 (3) Atrial fibrillation Qualifiers: Atrial fibrillation type: unspecified chronic Qualified Code(s): I48.20 - Chronic atrial fibrillation, unspecified; I48.2 - Chronic atrial fibrillation Is this a current diagnosis for this admission?: Yes Plan: Patient noted to be in a. fib with HR 90-100. Improved with treatment of anemia. Started on metoprolol for improved rate control; tolerating well. [id number] score 4.8% yearly CVA risk. [id number] score 8.4% yearly hemorrhage risk. Recommend against chronic anticoagulation at this time. Do recommend daily Aspirin therapy. (4) Hypothyroidism Qualifiers: Hypothyroidism type: unspecified Qualified Code(s): E03.9 - Hypothyroidism, unspecified Is this a current diagnosis for this admission?: Yes Plan: Continue levothyroxine. Recheck thyroid studies in 10 - 12 weeks (5) Uncontrolled type 2 diabetes mellitus Qualifiers: Glycemic state: with hyperglycemia Qualified Code(s): E11.65 - Type 2 diabetes mellitus with hyperglycemia Is this a current diagnosis for this admission?: Yes Plan: Patient has not been taking her diabetic meds or check checking BG for 1 year. Last saw PCP 1yr ago. Hemoglobin A1c of 11.1% Excellent glucose control with Insulin 70/30; 34 units with breakfast and 28 units with dinner. stone polisher and inclusion paraeducator were consulted. Patient has been taught how to self administer insulin; does well with Pen devices due to vision difficulties. (6) Morbid obesity Is this a current diagnosis for this admission?: Yes Plan: BMI 48.0 Strongly encourage lifestyle modification (7) Abdominal wall cellulitis Is this a current diagnosis for this admission?: Yes Plan: Significantly improved; erythema has resolved. Shallow wounds w/ evidence of healing. Granulation tissue noted to base of the largest wound on lower right side. No longer w/ purulent drainage. Has completed course of Bactrim. Consider skin fold moisture management system to prevent recurrence (such as over the counter Interdry-Silver). (8) Pannus, abdominal Is this a current diagnosis for this admission?: Yes (9) UTI (urinary tract infection) Qualifiers: Urinary tract infection type: acute cystitis Hematuria presence: with hematuria Qualified Code(s): N30.01 - Acute cystitis with hematuria Is this a current diagnosis for this admission?: Yes Plan: Blood cultures NGTD. Has completed full course of antibiotics. - Time Time Spent with patient: 15-24 minutes Medications reviewed and adjusted accordingly: Yes Anticipated discharge: Home with Homehealth
[2019-07-14] MEDS: ACETAMINOPHEN 325 MG TABLET PO PRN (14:46)
[2019-07-14] MEDS: MELATONIN 3 MG TABLET PO SCH (21:57)
[2019-07-15] MEDS: LEVOTHYROXINE SODIUM 0.025 MG TABLET PO SCH (05:10)
[2019-07-15 06:54] LABS: HEMATOCRIT 29.8 % (36.0-47.0); HEMOGLOBIN 9.3 g/dL (12.0-15.5); MEAN CORPUSCULAR HGB CONC 31.2 g/dL (32.0-36.0); PLATELET COUNT 269 10^3/uL (150-450); RED BLOOD COUNT 4.04 10^6/uL (3.72-5.28); RED CELL DISTRIBUTION WIDTH 33.4 % (11.5-14.0); WHITE BLOOD COUNT 6.3 10^3/uL (4.0-10.5)
[2019-07-15 07:02] LABS: MEAN CORPUSCULAR VOLUME 74 fl (80-97)
[2019-07-15] MEDS: INSULIN LISPRO 100 UNIT/ML 3 ML VIAL SUBCUT SCH (08:09)
[2019-07-15] MEDS: FAMOTIDINE 20 MG TABLET PO SCH (09:34)
[2019-07-15] MEDS: DOCUSATE SODIUM 100 MG CAPSULE PO SCH (09:35)
[2019-07-15] MEDS: ASPIRIN 81 MG TABLET, CHEWABLE PO SCH (09:35)
[2019-07-15] MEDS: FERROUS SULFATE 325 MG TABLET PO SCH (09:35)
[2019-07-15] MEDS: HUM INSULIN NPH/REG INSULIN HM 100 UNIT/1 ML 3 ML SUBCUT SCH (09:35)
[2019-07-15] MEDS: METOPROLOL SUCCINATE 25 MG TAB.SR.24H PO SCH (09:35)
[2019-07-15] MEDS: MINERAL OIL/PETROLATUM,WHITE CREAM 114 GM TP SCH (09:39)
[2019-07-15 10:02] VITALS: BP 116/80
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
--- NOTE | 2019-07-15 12:22 | PDOC PROGRESS REPORT ---
Subjective Progress Note for:: 07/15/19 Subjective:: MICHAELA WESLEY is a 78 year old female past medical history significant for hypertension, hyperlipidemia, DM 2, hypothyroidism, and obesity who was admitted 07/02/2019 with symptomatic anemia. Patient was seen on morning rounds. She is found sitting up to the recliner, comfortably, on room air. She reports that she is feeling well today. Patient denies fever, chest pain, palpitations, dyspnea, abdominal pain, and GI symptoms. Has no questions or concerns at this time. No concerns per nursing. Reason For Visit: SYMPTOMATIC ANEMIA Physical Exam Vital Signs: Temp Pulse Resp BP Pulse Ox 97.7 F 99 18 119/49 L 98 07/15/19 08:47 07/15/19 08:47 07/15/19 08:47 07/15/19 08:47 07/15/19 08:47 Intake & Output 07/14/19 07/15/19 07/16/19 06:59 06:59 06:59 Intake Total 1905 1460 Balance 1905 1460 Weight 129.2 kg 125.5 kg General appearance: PRESENT: no acute distress, cooperative, morbidly obese, well-developed, well-nourished Head exam: PRESENT: atraumatic, normocephalic Eye exam: PRESENT: conjunctiva pink, EOMI, PERRLA. ABSENT: scleral icterus Mouth exam: PRESENT: moist, tongue midline Teeth exam: PRESENT: poor dentation Respiratory exam: PRESENT: clear to auscultation chan, symmetrical, unlabored. ABSENT: rales, rhonchi, wheezes Cardiovascular exam: PRESENT: RRR. ABSENT: diastolic murmur, rubs, systolic murmur Vascular exam: PRESENT: normal capillary refill Extremities exam: PRESENT: full ROM. ABSENT: calf tenderness, clubbing, pedal edema Musculoskeletal exam: PRESENT: ambulatory - Front wheel walker Neurological exam: PRESENT: alert, awake, oriented to person, oriented to place, oriented to time, oriented to situation, CN II-XII grossly intact. ABSENT: motor sensory deficit Psychiatric exam: PRESENT: appropriate affect, normal mood. ABSENT: homicidal ideation, suicidal ideation Skin exam: PRESENT: dry, warm. ABSENT: cyanosis, rash Results Laboratory Results: 07/15/19 05:53 07/05/19 05:45 07/15/19 05:53 WBC 6.3 RBC 4.04 Hgb 9.3 L Hct 29.8 L MCV 74 L D MCH 23.0 L MCHC 31.2 L RDW 33.4 H Plt Count 269 Impressions: Abdomen/Pelvis CT 07/02/19 17:10 IMPRESSION: 1. Trace effusions and cardiomegaly. 2. No acute or suspicious intraabdominal abnormality. Soft tissue findings as above. Assessment and Plan - Diagnosis (1) Iron deficiency anemia Qualifiers: Iron deficiency anemia type: unspecified iron deficiency Qualified Code(s): D50.9 - Iron deficiency anemia, unspecified Is this a current diagnosis for this admission?: Yes Plan: Hemoglobin stable Hb 5.4 On admission. S/p 4 units PRBC and Venofer. Patient had denied any evidence of bleeding. Urinalysis was negative for blood CT abdomen pelvis had been done to evaluate for occult malignancy that may have contributed to her profound anemia and was also negative. Continue daily multivitamin and iron replacement. Follow-up with Dr. Correa as scheduled. (2) Symptomatic anemia Is this a current diagnosis for this admission?: Yes Plan: Resolved. Secondary to #1 (3) Atrial fibrillation Qualifiers: Atrial fibrillation type: unspecified chronic Qualified Code(s): I48.20 - Chronic atrial fibrillation, unspecified; I48.2 - Chronic atrial fibrillation Is this a current diagnosis for this admission?: Yes Plan: Patient noted to be in a. fib with HR 90-100. Improved with treatment of anemia. Started on metoprolol for improved rate control; tolerating well. [id number] score 4.8% yearly CVA risk. Deaehs6Pysuc score 8.4% yearly hemorrhage risk. Recommend against chronic anticoagulation at this time. Do recommend daily Aspirin therapy. (4) Hypothyroidism Qualifiers: Hypothyroidism type: unspecified Qualified Code(s): E03.9 - Hypothyroidism, unspecified Is this a current diagnosis for this admission?: Yes Plan: Continue levothyroxine. Recheck thyroid studies in 10 - 12 weeks (5) Uncontrolled type 2 diabetes mellitus Qualifiers: Glycemic state: with hyperglycemia Qualified Code(s): E11.65 - Type 2 diabetes mellitus with hyperglycemia Is this a current diagnosis for this admission?: Yes Plan: Patient has not been taking her diabetic meds or check checking BG for 1 year. Last saw PCP 1yr ago. Hemoglobin A1c of 11.1% Excellent glucose control with Insulin 70/30; 34 units with breakfast and 28 units with dinner. poultry processing supervisor and elementary educator were consulted. Patient has been taught how to self administer insulin; does well with Pen devices due to vision difficulties. (6) Morbid obesity Is this a current diagnosis for this admission?: Yes Plan: BMI 48.0 Strongly encourage lifestyle modification (7) Abdominal wall cellulitis Is this a current diagnosis for this admission?: Yes Plan: Significantly improved; erythema has resolved. Shallow wounds w/ evidence of healing. Granulation tissue noted to base of the largest wound on lower right side. No longer w/ purulent drainage. Has completed course of Bactrim. Consider skin fold moisture management system to prevent recurrence (such as over the counter Interdry-Silver). (8) Pannus, abdominal Is this a current diagnosis for this admission?: Yes (9) UTI (urinary tract infection) Qualifiers: Urinary tract infection type: acute cystitis Hematuria presence: with hematuria Qualified Code(s): N30.01 - Acute cystitis with hematuria Is this a current diagnosis for this admission?: Yes Plan: Blood cultures NGTD. Has completed full course of antibiotics. - Time Time Spent with patient: Less than 15 minutes Medications reviewed and adjusted accordingly: Yes Anticipated discharge: Home with Homehealth
== END 2019-07-15 10:20 | disposition home health service (06) | DRG 812 ==
LOC: ER 12:56 → UNDOADMIN 17:29 → EH 17:29 → 4S 19:22
PROVIDERS: ADMIT Internal Medicine; ATTEND Registered Nurse
PROC: 30233N1 Transfusion of Nonautologous Red Blood Cells into Peripheral Vein, Percutaneous Approach (ICD-10-PCS; principal; 2019-07-02)
PROC: 30233N1 Transfusion of Nonautologous Red Blood Cells into Peripheral Vein, Percutaneous Approach (ICD-10-PCS; 2019-07-03)
DX: D50.9 Iron deficiency anemia, unspecified (principal); L03.311 Cellulitis of abdominal wall; N39.0 Urinary tract infection, site not specified; Z68.42 Body mass index [BMI] 45.0-49.9, adult; I48.91 Unspecified atrial fibrillation; E11.65 Type 2 diabetes mellitus with hyperglycemia; E03.9 Hypothyroidism, unspecified; E78.5 Hyperlipidemia, unspecified; I10 Essential (primary) hypertension; R32 Unspecified urinary incontinence; E65 Localized adiposity; M79.3 Panniculitis, unspecified; E66.01 Morbid (severe) obesity due to excess calories; B95.61 Methicillin susceptible Staphylococcus aureus infection as the cause of diseases classified elsewhere; B96.4 Proteus (mirabilis) (morganii) as the cause of diseases classified elsewhere; B96.89 Other specified bacterial agents as the cause of diseases classified elsewhere
CPT/HCPCS: 36415; 36430; 51701; 71045; 74177; 80048; 80053; 81001; 82270; 82607; 82728; 82746; 82962; 83036; 83540; 83550; 83735; 84439; 84443; 84481; 85025; 85027; 85045; 85610; 86850; 86900; 86901; 86920; 87040; 87070; 87077; 87086; 87186; 87205; 87635; 93005; 93010; 99285; J0696; J1756; J1815; J3490; J7030; J7050; P9016

== ENCOUNTER 2019-08-04 15:37 | Inpatient (IN) | payer MEDICARE ==
--- NOTE | 2019-08-04 16:02 | ER Document Report ---
ED Respiratory Problem - General Stated Complaint: SHORTNESS OF BREATH Time Seen by Provider: 08/04/19 15:46 Notes: Patient is a morbidly obese 78-year-old female who presents the emergency department with a chief complaint of shortness of breath. Patient states that she started to get short of breath 3 days ago. Patient does have a history of anemia. Denies COPD and states that she heard she might have congestive heart failure.. Patient was brought in by ambulance and EMS gave her sublingual nitro glycerin to help with her shortness of breath. Patient was then placed on CPAP because her oxygen saturation was in the 80s. Patient states that she feels better after being placed on BiPAP. States earlier that nothing made her shortness of breath or. Patient has a history of diabetes, hypertension, and hyperlipidemia. She also states that she has bilateral venous stasis ulcers, that were managed 2 years ago, but states that she does not got to wound care anymore. TRAVEL OUTSIDE OF THE [place] IN LAST 30 DAYS: No - Related Data Allergies/Adverse Reactions: codeine Allergy (Verified 07/02/19 13:51) Past Medical History - General Information source: Patient - Social History Smoking Status: Former Smoker - when she was in her 20's Family History: Reviewed & Not Pertinent - Past Medical History Cardiac Medical History: Reports: Hx Hypercholesterolemia, Hx Hypertension Denies: Hx Congestive Heart Failure, Hx Heart Attack Pulmonary Medical History: Denies: Hx COPD Endocrine Medical History: Reports: Hx Diabetes Mellitus Type 2, Hx Hypothyroidism Musculoskeletal Medical History: Reports Hx Arthritis Psychiatric Medical History: Reports: Hx Depression Past Surgical History: Reports: Hx Cholecystectomy, Hx Tubal Ligation Review of Systems - Review of Systems Notes: REVIEW OF SYSTEMS: CONSTITUTIONAL : Denies recent illness. Denies recent unintentional weight loss. Denies fever, chills, or sweats. EENT: Denies eye, ear, throat, or mouth pain, discharge, or symptoms. Denies nasal or sinus congestion. CARDIOVASCULAR: Denies chest pain. RESPIRATORY: See HPI. GASTROINTESTINAL: Denies nausea, vomiting, and diarrhea. Denies abdominal pain. Denies constipation. GENITOURINARY: Denies difficulty urinating, burning, blood in urine, urgency or frequency. MUSCULOSKELETAL: Denies neck and back pain. Denies joint pain or swelling. SKIN: Denies rash, itchiness, or lesions HEMATOLOGIC : Denies easy bruising or bleeding. LYMPHATIC: Denies swollen, painful, enlarged glands. NEUROLOGICAL: Denies no numbness or tingling denies weakness. Denies headache. Denies altered mental status. Denies alteration in speech. PSYCHIATRIC: Denies stress, anxiety, alteration in sleep patterns, or depressio n. All other systems reviewed and negative. Physical Exam - Vital signs Vitals: Temp 98.4 F 08/04/19 15:37 - Notes Notes: PHYSICAL EXAMINATION: GENERAL: Appears morbidly obese no acute distress. HEAD: Normocephalic, atraumatic. EYES: PERRL, conjunctiva normal, all extraocular movements intact, sclera nonicteric ENT: Moist mucous membranes. NECK: Supple, no noticeable swelling, redness, rash. Normal range of motion. LUNGS: Equal breath sounds bilaterally and clear to auscultation. No wheezes rales or rhonchi. CARDIOVASCULAR: S1-S2, regular rate, regular rhythm. Radial pulses 2+, normal. ABDOMEN: Normoactive bowel sounds. Large, soft, anasarca noted. EXTREMITIES: Anasarca, 4+ pitting edema noted to bilateral lower extremities NEUROLOGICAL: Moves all extremities upon command. PSYCH: Normal mood, normal affect. SKIN: Warm, dry. No rash, lesions, ulcerations noted. Normal skin turgor. Course - Re-evaluation Re-evalutation: 08/04/19 17:17 Hematology shows hematology does not show leukocytosis. Patient is anemic with a hemoglobin of 10.8 and a hematocrit of 35.9. Blood gas shows a PCO2 of 9.7. I suspect this was much higher when she was at home. PO2 is 153. I asked the nurse to bring down the oxygen to 21%. This was about an hour ago. Patient's oxygen saturation is 94% on 21% oxygen. Chemistries show a potassium of 5.3. BNP is 1990. This x-ray shows fluid overload. Due to the patient requiring BiPAP, will call for admission. 08/04/19 17:[address] Givens. Patient will be admitted to [facility]. - Vital Signs Vital signs: Temp Pulse Resp BP Pulse Ox 97.5 F 94 18 97/61 L 97 08/04/19 21:06 08/04/19 21:06 08/04/19 21:06 08/04/19 21:06 08/04/19 21:06 - Laboratory Result Diagrams: 08/04/19 15:50 08/04/19 15:50 Laboratory results interpreted by me: 08/04/19 08/04/19 08/04/19 15:50 15:50 15:50 Hgb 10.8 L Hct 35.9 L MCH 25.4 L MCHC 30.2 L RDW 33.9 H Carbonic Acid ABG pCO2 ABG pO2 ABG HCO3 ABG Total CO2 ABG O2 Saturation Potassium 5.3 H Glucose 206 H NT-Pro-B Natriuret Pep 1990 H Albumin 3.1 L 08/04/19 15:50 Hgb Hct MCH MCHC RDW Carbonic Acid 1.50 H ABG pCO2 49.7 H ABG pO2 153.7 H ABG HCO3 27.4 H ABG Total CO2 29.0 H ABG O2 Saturation 98.9 H Potassium Glucose NT-Pro-B Natriuret Pep Albumin - EKG Interpretation by Me Additional EKG results interpreted by me: 08/04/19 16:13 Atrial fibrillation. Rate 100. QRS 88. QT 360; QTc 465. No ST elevations or depressions noted. No acute change from previous EKG done on 07/02/2019. Discharge - Discharge Clinical Impression: Shortness of breath Congestive heart failure (CHF) Qualifiers: Heart failure type: unspecified Heart failure chronicity: unspecified Qualified Code(s): I50.9 - Heart failure, unspecified Condition: Fair Disposition: ADMITTED INPATIENT Admitting Provider: Chon (Hospitalist) Unit Admitted: [facility]
[2019-08-04 16:08] LABS: ABSOLUTE BASOPHILS # (AUTO) 0.1 10^3/uL (0.0-0.2); ABSOLUTE EOSINOPHILS # (AUTO) 0.1 10^3/uL (0.0-0.6); ABSOLUTE LYMPHOCYTES (AUTO) 1.3 10^3/uL (0.5-4.7); ABSOLUTE MONOCYTES (AUTO) 0.7 10^3/uL (0.1-1.4); ABSOLUTE NEUT (AUTO) 7.1 10^3/uL (1.7-8.2); BASOPHILS % (AUTO) 1.2 % (0-2); EOSINOPHILS % (AUTO) 1.5 % (0-6); HEMATOCRIT 35.9 % (36.0-47.0); HEMOGLOBIN 10.8 g/dL (12.0-15.5); LYMPHOCYTES % (AUTO) 13.7 % (13-45); MEAN CORPUSCULAR HEMOGLOBIN 25.4 pg (27.0-33.4); MEAN CORPUSCULAR HGB CONC 30.2 g/dL (32.0-36.0); MONOCYTES % (AUTO) 7.4 % (3-13); PLATELET COUNT 254 10^3/uL (150-450); RED BLOOD COUNT 4.26 10^6/uL (3.72-5.28); RED CELL DISTRIBUTION WIDTH 33.9 % (11.5-14.0); SEGMENTED NEUTROPHILS % (AUTO) 76.2 % (42-78); TOTAL CELLS COUNTED % (AUTO) 100 %; WHITE BLOOD COUNT 9.3 10^3/uL (4.0-10.5)
[2019-08-04 16:09] LABS: ARTERIAL BLOOD BASE EXCESS 1.4 mmol/L; ARTERIAL BLOOD HCO3 27.4 mmol/L (20-24); ARTERIAL BLOOD O2 SATURATION 98.9 % (94-98); ARTERIAL BLOOD PCO2 49.7 mmHg (35-45); ARTERIAL BLOOD PH 7.36 (7.35-7.45); ARTERIAL BLOOD PO2 153.7 mmHg (80-100)
[2019-08-04 16:10] LABS: ARTERIAL BLOOD FIO2 40%
--- NOTE | 2019-08-04 16:15 | RADIOLOGY REPORT (SQ) ---
EXAM DESCRIPTION: CHEST SINGLE VIEW IMAGES COMPLETED DATE/TIME: 08/04/2019 3:53 pm REASON FOR STUDY: sob COMPARISON: AP view of the chest from 07/02/2019. EXAM PARAMETERS: NUMBER OF VIEWS: One view. TECHNIQUE: An AP view of the chest was obtained. RADIATION DOSE: NA LIMITATIONS: None. FINDINGS: LUNGS AND PLEURA: The interstitium is indistinct. There are bibasilar opacities that obsc ure the contours of the hemidiaphragms and blunt the costophrenic sulci. There is no pneumothorax. MEDIASTINUM AND HILAR STRUCTURES: No mediastinal or hilar contour abnormality. HEART AND VASCULAR STRUCTURES: The cardiac silhouette is enlarged. BONES: No acute findings. HARDWARE: None in the chest. OTHER: No other finding. IMPRESSION: Cardiomegaly and basilar predominant hazy opacities that obscure the contours of the hem idiaphragms and blunt the costophrenic sulci. Clinical correlation for signs and symptoms of volume overload/ CHF is recommended. TECHNICAL DOCUMENTATION: JOB ID: [id number] 2010 [employer]- All Rights Reserved Reading location - IP/workstation name: [email or web address]
[2019-08-04 16:29] LABS: MEAN CORPUSCULAR VOLUME 84 fl (80-97)
[2019-08-04 16:30] LABS: ALBUMIN 3.1 g/dL (3.5-5.0); ALKALINE PHOSPHATASE 75 U/L (38-126); ASPARTATE AMINO TRANSFERASE 27 U/L (14-36); BILIRUBIN,DIRECT 0.1 mg/dL (0.0-0.4); BILIRUBIN,TOTAL 0.5 mg/dL (0.2-1.3); BLOOD UREA NITROGEN 20 mg/dL (7-20); CALCIUM 8.6 mg/dL (8.4-10.2); CREATINE KINASE 31 U/L (30-135); GLUCOSE 206 mg/dL (75-110); POTASSIUM 5.3 mmol/L (3.6-5.0); TOTAL PROTEIN 6.9 g/dL (6.3-8.2)
[2019-08-04 16:34] LABS: ANISOCYTOSIS 4+; POLYCHROMASIA SLIGHT; TOXIC GRANULATION SLIGHT
[2019-08-04 16:35] LABS: PLATELET COMMENT ADEQUATE; PLATELET GIANT PRESENT
[2019-08-04 16:45] LABS: CREATINE KINASE MB 0.98 ng/mL (<4.55); NT PRO BNP 1990 pg/mL (<450)
[2019-08-04 16:46] LABS: TROPONIN I < 0.012 ng/mL
[2019-08-04 16:47] LABS: ANION GAP 5 (5-19)
[2019-08-04 16:51] LABS: CARBON DIOXIDE 29 mmol/L (22-30); CHLORIDE 106 mmol/L (98-107)
[2019-08-04] MEDS ORDERED: MAG HYDROX/AL HYDROX/SIMETH SUSP 30 ML UDCUP PO PRN (18:58)
[2019-08-04] MEDS ORDERED: PROMETHAZINE HCL INJ 25 MG/1 ML VIAL IV PRN (18:58)
[2019-08-04] MEDS ORDERED: NITROGLYCERIN 0.4 MG/TAB 25 TAB/BOTTLE SL PRN (18:58)
[2019-08-04] MEDS ORDERED: MAGNESIUM HYDROXIDE SUSP 30 ML UDCUP PO PRN (18:58)
--- NOTE | 2019-08-04 18:58 | PDOC H&P ---
History of Present Illness Admission Date/PCP: 08/04/19 17:56 TOMMY REYEZ MD Patient complains of: Shortness of breath History of Present Illness: MICHAELA WESLEY is a 78 year old female with morbid obesity, longstanding persistent atrial fibrillation, hyperlipidemia, diabetes mellitus type 2, hypothyroidism and hypertension presents with shortness of breath. She was just discharged on July 09 from this hospital for symptomatic anemia and uncontrolled diabetes mellitus. She states that over the last 3 to 4 days she has been noticing increasing shortness of breath. She does not have a scale to weigh herself daily. She reports that she does try to be compliant with a cardiac diet. She in fact needs to be on a cardiac/diabetic diet. The brain natruretic peptide was elevated. Chest x-ray suggested fluid. On BiPAP her saturations are improved. Will be admitted to telemetry. We will check an echocardiogram because she has not had 1. We will continue treatment of her multiple comorbidities. Past Medical History Cardiac Medical History: Reports: Hyperlipidema, Hypertension Denies: Congestive Heart Failure, Myocardial Infarction Pulmonary Medical History: Denies: Chronic Obstructive Pulmonary Disease (COPD) Endocrine Medical History: Reports: Diabetes Mellitus Type 2, Hypothyroidism, Obesity Musculoskeltal Medical History: Reports: Arthritis Psychiatric Medical History: Reports: Depression Hematology: Reports: Anemia Past Surgical History Past Surgical History: Reports: Cholecystectomy, Tubal Ligation Social History Information Source: Patient, [facility] Records Lives with: Family Smoking Status: Never Smoker Electronic Cigarette use?: No Frequency of Alcohol Use: None Hx Recreational Drug Use: No Hx Prescription Drug Abuse: No - Advance Directive Resuscitation Status: Full Code Family History Family History: Reviewed & Not Pertinent Parental Family History Reviewed: Yes Children Family History Reviewed: Yes Sibling(s) Family History Reviewed.: Yes Medication/Allergy Home Medications: Ibuprofen [Motrin Ib] 200 mg PO DAILYP PRN MDD FOR LEG PAIN 07/02/19 Acetaminophen [Tylenol 325 mg Tablet] 650 mg PO Q4HP PRN tablet 07/09/19 Levothyroxine Sodium [Synthroid 0.025 mg Tablet] 0.025 mg PO Q6AM tablet 07/09/19 Melatonin [Melatonin 3 mg Tablet] 6 mg PO QHS tablet 07/09/19 Nystatin [Mycostatin Topical Powder 15 gm] 1 applic TP BID bottle 07/09/19 Aspirin [Aspirin 81 mg Chewable Tablet] 81 mg PO DAILY tab.chew 07/15/19 Ferrous Sulfate [Feosol 325 mg Tablet] 325 mg PO BIDPCBS #60 tablet 07/15/19 Insulin NPH Hum/Reg Insulin Hm [Humulin 70/30 Kwikpen] 100 unit SQ ASDIR PRN 30 Days insuln.pen 07/15/19 Metoprolol Succinate [Toprol Xl 25 mg Tab.sr] 25 mg PO DAILY #30 tab.sr.24h 07/15/19 Pen Needle, Diabetic [Insulin Pen Needle] 1 each MC BID #60 dis.needle 07/15/19 Allergies/Adverse Reactions: codeine Allergy (Verified 07/02/19 13:51) Review of Systems All systems: reviewed and no additional remarkable complaints except as stated Cardiovascular: PRESENT: edema Respiratory: PRESENT: dyspnea Integumentary: PRESENT: pruritus Physical Exam Vital Signs: Temp Pulse Resp BP Pulse Ox 98.4 F 28 H 100 08/04/19 15:37 08/04/19 15:38 08/04/19 15:38 Intake & Output 08/03/19 08/04/19 08/05/19 06:59 06:59 06:59 Weight 174 kg General appearance: PRESENT: cooperative, morbidly obese, well-developed, well- nourished Head exam: PRESENT: atraumatic, normocephalic, other - BiPAP mask in place Eye exam: PRESENT: conjunctiva pink, EOMI. ABSENT: scleral icterus Ear exam: PRESENT: normal external ear exam. ABSENT: bleeding, drainage Mouth exam: PRESENT: other - Endplates Neck exam: PRESENT: JVD - Somewhat difficult to assess due to large amount of redundant tissue in the neck. ABSENT: carotid bruit, lymphadenopathy Respiratory exam: PRESENT: rales, symmetrical, tachypnea. ABSENT: accessory muscle use, rhonchi, wheezes Cardiovascular exam: PRESENT: RRR, +S1, +S2. ABSENT: diastolic murmur, irregular rhythm, systolic murmur GI/Abdominal exam: PRESENT: diminished bowel sounds, soft, other - Pendulous abdomen. ABSENT: distended, guarding, tenderness Rectal exam: PRESENT: deferred Gentrourinary exam: ABSENT: indwelling catheter Extremities exam: PRESENT: pedal edema, +2 edema, other - Chronic edema with cobblestoning and erythema consistent with recurrent thrombophlebitis Musculoskeletal exam: ABSENT: ambulatory Neurological exam: PRESENT: alert, awake, oriented to person, oriented to place, oriented to time, oriented to situation, CN II-XII grossly intact. ABSENT: altered Psychiatric exam: PRESENT: flat affect. ABSENT: agitated, anxious Focused psych exam: ABSENT: delusional, paranoid, restlessness Skin exam: PRESENT: erythema - Lower legs, other - Multiple small scabs that the patient reports are resolved excoriation/itching Results Laboratory Results: 08/04/19 15:50 08/04/19 15:50 08/04/19 08/04/19 08/04/19 15:50 15:50 15:50 WBC 9.3 RBC 4.26 Hgb 10.8 L Hct 35.9 L MCV 84 D MCH 25.4 L MCHC 30.2 L RDW 33.9 H Plt Count 254 Seg Neutrophils % 76.2 Carbonic Acid HCO3/H2CO3 Ratio ABG pH ABG pCO2 ABG pO2 ABG HCO3 ABG O2 Saturation ABG Base Excess FiO2 Sodium 140.1 Potassium 5.3 H Chloride 106 Carbon Dioxide 29 Anion Gap 5 BUN 20 Creatinine 0.85 Est GFR ( Amer) > 60 Glucose 206 H Lactic Acid 1.3 Calcium 8.6 Total Bilirubin 0.5 AST 27 Alkaline Phosphatase 75 Total Protein 6.9 Albumin 3.1 L 08/04/19 15:50 WBC RBC Hgb Hct MCV MCH MCHC RDW Plt Count Seg Neutrophils % Carbonic Acid 1.50 H HCO3/H2CO3 Ratio 18:1 ABG pH 7.36 ABG pCO2 49.7 H ABG pO2 153.7 H ABG HCO3 27.4 H ABG O2 Saturation 98.9 H ABG Base Excess 1.4 FiO2 40% Sodium Potassium Chloride Carbon Dioxide Anion Gap BUN Creatinine Est GFR ( Amer) Glucose Lactic Acid Calcium Total Bilirubin AST Alkaline Phosphatase Total Protein Albumin 08/04/19 08/04/19 15:50 15:50 Creatine Kinase 31 CK-MB (CK-2) 0.98 Troponin I < 0.012 NT-Pro-B Natriuret Pep 1990 H Impressions: Chest X-Ray 08/04/19 15:38 IMPRESSION: Cardiomegaly and basilar predominant hazy opacities that obscure the contours of the hemidiaphragms and blunt the costophrenic sulci. Clinical correlation for signs and symptoms of volume overload/ CHF is recommended. Assessment and Plan - Diagnosis (1) Acute respiratory failure with hypoxia Is this a current diagnosis for this admission?: Yes Plan: 08/04/2019 Secondary to heart failure with underlying morbid obesity hypoventilation. Patient denies sleep apnea. BiPAP for now. Wean off of BiPAP as tolerated. (2) Congestive heart failure (CHF) Qualifiers: Heart failure type: unspecified Heart failure chronicity: unspecified Qualified Code(s): I50.9 - Heart failure, unspecified Is this a current diagnosis for this admission?: Yes Plan: 08/04/2019 I cannot find an old echocardiogram therefore I will order an echocardiogram. We will utilize diuretics. She is already on metoprolol for her fibrillation. Will monitor on telemetry and observe intake and output. (3) Hyperglycemia due to type 2 diabetes mellitus Qualifiers: Diabetes mellitus mcfp insulin use: with middle or intermediate school principal use Qualified Code(s): E11.65 - Type 2 diabetes mellitus with hyperglycemia; Z79.4 - terminal worker (current) use of insulin Is this a current diagnosis for this admission?: Yes Plan: 08/04/2019 Consistent carbohydrate diet. Insulin therapy with Accu-Cheks before meals and at bedtime. (4) Longstanding persistent atrial fibrillation Is this a current diagnosis for this admission?: Yes Plan: 08/04/2019 Continue metoprolol. Monitor on telemetry. Will have cardiology consult and consider anticoagulation. (5) Hypothyroidism Qualifiers: Hypothyroidism type: unspecified Qualified Code(s): E03.9 - Hypothyroidism, unspecified Is this a current diagnosis for this admission?: Yes Plan: 08/04/2019 Continue levothyroxine (6) Iron deficiency anemia Qualifiers: Iron deficiency anemia type: unspecified iron deficiency Qualified Code(s): D50.9 - Iron deficiency anemia, unspecified Is this a current diagnosis for this admission?: Yes Plan: 08/04/2019 Continue iron supplement (7) Morbid obesity Is this a current diagnosis for this admission?: Yes Plan: 08/04/2019 BMI is 63.8. This certainly adds to the comorbidities. Likely a component of obesity hypoventilation and possible sleep apnea. Morbid obesity also puts strain on the heart and his diet for diabetes. Also contributes to the chronic lower extremity edema and chronic thrombophlebitis. (8) Hyperkalemia Is this a current diagnosis for this admission?: Yes Plan: 12/05/2019 Potassium will slightly decrease with diuresis. Monitor electrolytes. (9) Leg edema Is this a current diagnosis for this admission?: Yes Plan: 08/04/2019 Chronic lower extremity edema. Erythema is likely due to chronic superficial thrombophlebitis. Cobblestoning of the skin indicates longstanding severe lymphedema. Try to elevate extremities when possible. - Time Time Spent with patient: 35 or more minutes Medications reviewed and adjusted accordingly: Yes - Inpatient Certification Based on my medical assessment, after consideration of the patient's comorbidities, presenting symptoms, or acuity I expect that the services needed warrant INPATIENT care.: Yes I certify that my determination is in accordance with my understanding of Medicare's requirements for reasonable and necessary INPATIENT services [42 CFR 412.3e].: Yes Medical Necessity: Need Close Monitoring Due to Risk of Patient Decompensation, Need For Continuous Telemetry Monitoring Post Hospital Care: D/C Unit Receptionist Documentation
[2019-08-04] MEDS ORDERED: GLUCAGON,HUMAN RECOMB 1 MG INJ IM PRN (19:18)
[2019-08-04] MEDS ORDERED: DEXTROSE 50%-WATER 25 GM/50 ML DISP.SYRIN IV PRN ×2 (19:18)
[2019-08-04] MEDS ORDERED: DEXTROSE 40% GEL 15 GM TUBE PO PRN ×2 (19:18)
--- NOTE | 2019-08-04 19:34 | EKG REPORT ---
SEVERITY:- ABNORMAL ECG - ATRIAL FIBRILLATION LOW VOLTAGE THROUGHOUT CONSIDER ANTERIOR INFARCT : Confirmed by: Jared Lantigua MD 04-Aug-2019 19:33:11
[2019-08-04] MEDS: INSULIN LISPRO 100 UNIT/ML 3 ML VIAL SUBCUT SCH (21:51)
[2019-08-04] MEDS ORDERED: FUROSEMIDE INJ/PF 20 MG/2 ML SDV IV SCH (22:00)
[2019-08-04] MEDS: MELATONIN 3 MG TABLET PO SCH (22:38)
[2019-08-04] MEDS: ASPIRIN 81 MG TABLET, ENT COATED PO SCH (22:38)
[2019-08-04] MEDS: FAMOTIDINE 20 MG TABLET PO SCH (22:38)
[2019-08-05 01:26] LABS: APPEARANCE,URINE CLEAR; BILIRUBIN,URINE NEGATIVE (NEGATIVE); COLOR,URINE YELLOW; GLUCOSE, URINE NEGATIVE (NEGATIVE); KETONES,URINE NEGATIVE (NEGATIVE); LEUKOCYTE ESTERASE,URINE NEGATIVE (NEGATIVE); NITRITE,URINE NEGATIVE (NEGATIVE); PROTEIN,URINE NEGATIVE (NEGATIVE); URINE SPECIFIC GRAVITY 1.009; UROBILINOGEN,URINE NEGATIVE mg/dL (<2.0)
[2019-08-05] MEDS: LEVOTHYROXINE SODIUM 0.025 MG TABLET PO SCH (05:26)
[2019-08-05] MEDS: FUROSEMIDE INJ/PF 20 MG/2 ML SDV IV SCH ×3 (05:26→22:07)
[2019-08-05 05:56] LABS: ANION GAP 5 (5-19); BLOOD UREA NITROGEN 19 mg/dL (7-20); CALCIUM 8.6 mg/dL (8.4-10.2); CARBON DIOXIDE 30 mmol/L (22-30); CHLORIDE 105 mmol/L (98-107); CHOLESTEROL 113.97 mg/dL (0-200); GLUCOSE 171 mg/dL (75-110); POTASSIUM 4.9 mmol/L (3.6-5.0); TRIGLYCERIDES 62 mg/dL (<150)
[2019-08-05 06:07] LABS: DIRECT LDL 74 mg/dL (<100)
--- NOTE | 2019-08-05 07:18 | EKG REPORT ---
SEVERITY:- ABNORMAL ECG - ATRIAL FIBRILLATION LOW VOLTAGE THROUGHOUT BORDERLINE R WAVE PROGRESSION, ANTERIOR LEADS : Confirmed by: Jared Lantigua MD 05-Aug-2019 07:18:07
[2019-08-05] MEDS: INSULIN LISPRO 100 UNIT/ML 3 ML VIAL SUBCUT SCH ×4 (07:23→22:07)
[2019-08-05] MEDS: HUM INSULIN NPH/REG INSULIN HM 100 UNIT/1 ML 3 ML SUBCUT SCH ×2 (08:10→17:39)
[2019-08-05] MEDS ORDERED: METOPROLOL SUCCINATE 25 MG TAB.SR.24H PO SCH ×2 (10:00)
[2019-08-05] MEDS: LISINOPRIL 5 MG TABLET PO SCH (10:22)
[2019-08-05] MEDS: FAMOTIDINE 20 MG TABLET PO SCH ×2 (10:25→22:07)
[2019-08-05] MEDS: FERROUS SULFATE 325 MG TABLET PO SCH ×2 (10:26→17:39)
[2019-08-05] MEDS: POTASSIUM CHLORIDE 10 MEQ TABLET.ER PO SCH (10:26)
[2019-08-05] MEDS: ENOXAPARIN SODIUM INJ 40 MG/0.4 ML DISP.SYRIN SUBCUT SCH (10:26)
--- NOTE | 2019-08-05 12:18 | PDOC PROGRESS REPORT ---
Subjective Progress Note for:: 08/05/19 Subjective:: Was only able to stay off of BiPAP for less than 30 minutes. Oxygen saturations were in the 70s. Surprisingly the patient was talking on the phone and not seemingly affected by her low oxygenation. This likely reflects the fact that she is consistently hypoxic at home. Reason For Visit: HEART FAILURE DIABETES MELLITUS MORBID OBESITY Physical Exam Vital Signs: Temp Pulse Resp BP Pulse Ox 97.6 F 105 H 22 H 103/74 94 08/05/19 08:00 08/05/19 08:00 08/05/19 08:09 08/05/19 08:00 08/05/19 08:09 Intake & Output 08/04/19 08/05/19 08/06/19 06:59 06:59 06:59 Intake Total 250 Output Total 400 Balance -150 Weight 174 kg General appearance: PRESENT: cooperative, mild distress, morbidly obese, well-developed, other - BiPAP in place Head exam: PRESENT: atraumatic, normocephalic Respiratory exam: PRESENT: rales - I believe there were rales but difficult to auscultate due to the BiPAP. Cardiovascular exam: PRESENT: RRR, +S1, +S2. ABSENT: irregular rhythm, tachycardia GI/Abdominal exam: PRESENT: normal bowel sounds, soft, other - Pendulous abdomen. ABSENT: distended, guarding, tenderness Rectal exam: PRESENT: deferred Extremities exam: PRESENT: +2 edema Neurological exam: PRESENT: alert, awake, oriented to person, oriented to place, oriented to situation Psychiatric exam: PRESENT: appropriate affect. ABSENT: agitated, anxious Skin exam: PRESENT: erythema - Bilateral lower extremities Results Laboratory Results: 08/04/19 15:50 08/05/19 05:00 08/04/19 08/04/19 08/04/19 15:50 15:50 15:50 WBC 9.3 RBC 4.26 Hgb 10.8 L Hct 35.9 L MCV 84 D MCH 25.4 L MCHC 30.2 L RDW 33.9 H Plt Count 254 Seg Neutrophils % 76.2 Carbonic Acid HCO3/H2CO3 Ratio ABG pH ABG pCO2 ABG pO2 ABG HCO3 ABG O2 Saturation ABG Base Excess FiO2 Sodium 140.1 Potassium 5.3 H Chloride 106 Carbon Dioxide 29 Anion Gap 5 BUN 20 Creatinine 0.85 Est GFR ( Amer) > 60 Glucose 206 H Lactic Acid 1.3 Calcium 8.6 Magnesium Total Bilirubin 0.5 AST 27 Alkaline Phosphatase 75 Total Protein 6.9 Albumin 3.1 L Triglycerides Cholesterol LDL Cholesterol Direct VLDL Cholesterol HDL Cholesterol Urine Color Urine Appearance Urine pH Ur Specific [place] Urine Protein Urine Glucose (UA) Urine Ketones Urine Blood Urine Nitrite Ur Leukocyte Esterase Urine WBC (Auto) Urine RBC (Auto) 08/04/19 08/05/19 08/05/19 15:50 01:15 05:00 WBC RBC Hgb Hct MCV MCH MCHC RDW Plt Count Seg Neutrophils % Carbonic Acid 1.50 H HCO3/H2CO3 Ratio 18:1 ABG pH 7.36 ABG pCO2 49.7 H ABG pO2 153.7 H ABG HCO3 27.4 H ABG O2 Saturation 98.9 H ABG Base Excess 1.4 FiO2 40% Sodium 140.4 Potassium 4.9 Chloride 105 Carbon Dioxide 30 Anion Gap 5 BUN 19 Creatinine 0.87 Est GFR ( Amer) > 60 Glucose 171 H Lactic Acid Calcium 8.6 Magnesium 1.9 Total Bilirubin AST Alkaline Phosphatase Total Protein Albumin Triglycerides 62 Cholesterol 113.97 LDL Cholesterol Direct 74 VLDL Cholesterol 12.0 HDL Cholesterol 32 L Urine Color YELLOW Urine Appearance CLEAR Urine pH 5.0 Ur Specific [place] 1.009 Urine Protein NEGATIVE Urine Glucose (UA) NEGATIVE Urine Ketones NEGATIVE Urine Blood NEGATIVE Urine Nitrite NEGATIVE Ur Leukocyte Esterase NEGATIVE Urine WBC (Auto) 0 Urine RBC (Auto) 0 08/04/19 08/04/19 08/05/19 15:50 15:50 05:00 Creatine Kinase 31 CK-MB (CK-2) 0.98 Troponin I < 0.012 < 0.012 NT-Pro-B Natriuret Pep 1990 H Impressions: Chest X-Ray 08/04/19 15:38 IMPRESSION: Cardiomegaly and basilar predominant hazy opacities that obscure the contours of the hemidiaphragms and blunt the costophrenic sulci. Clinical correlation for signs and symptoms of volume overload/ CHF is recommended. Assessment and Plan - Diagnosis (1) Acute respiratory failure with hypoxia Is this a current diagnosis for this admission?: Yes Plan: 08/04/2019 Secondary to heart failure with underlying morbid obesity hypoventilation. Patient denies sleep apnea. BiPAP for now. Wean off of BiPAP as tolerated. 08/05/2019 Continues to need BiPAP almost continuously (2) Congestive heart failure (CHF) Qualifiers: Heart failure type: unspecified Heart failure chronicity: unspecified Qualified Code(s): I50.9 - Heart failure, unspecified Is this a current diagnosis for this admission?: Yes Plan: 08/04/2019 I cannot find an old echocardiogram therefore I will order an echocardiogram. We will utilize diuretics. She is already on metoprolol for her fibrillation. Will monitor on telemetry and observe intake and output. 08/05/2019 Still not a significant negative fluid balance. I am going to keep the furosemide at 20 mg every 8 hours to try and avoid hypotension. Echocardiogram is pending. The patient will be seen by cardiology as well. (3) Hyperglycemia due to type 2 diabetes mellitus Qualifiers: Diabetes mellitus intermediate teacher insulin use: with skilled nursing use Qualified Code(s): E11.65 - Type 2 diabetes mellitus with hyperglycemia; Z79.4 - superintendent terminal (current) use of insulin Is this a current diagnosis for this admission?: Yes Plan: 08/04/2019 Consistent carbohydrate diet. Insulin therapy with Accu-Cheks before meals and at bedtime. 08/05/2019 Accu-Cheks are variable but for the most part under 200. Continue current regimen. (4) Longstanding persistent atrial fibrillation Is this a current diagnosis for this admission?: Yes Plan: 08/04/2019 Continue metoprolol. Monitor on telemetry. Will have cardiology consult and consider anticoagulation. 08/05/2019 No changes at this time (5) Hypothyroidism Qualifiers: Hypothyroidism type: unspecified Qualified Code(s): E03.9 - Hypothyroidism, unspecified Is this a current diagnosis for this admission?: Yes Plan: 08/04/2019 Continue levothyroxine (6) Iron deficiency anemia Qualifiers: Iron deficiency anemia type: unspecified iron deficiency Qualified Code(s): D50.9 - Iron deficiency anemia, unspecified Is this a current diagnosis for this admission?: Yes Plan: 08/04/2019 Continue iron supplement (7) Morbid obesity Is this a current diagnosis for this admission?: Yes Plan: 08/04/2019 BMI is 63.8. This certainly adds to the comorbidities. Likely a component of obesity hypoventilation and possible sleep apnea. Morbid obesity also puts strain on the heart and his diet for diabetes. Also contributes to the chronic lower extremity edema and chronic thrombophlebitis. (8) Hyperkalemia Is this a current diagnosis for this admission?: Yes Plan: 08/04/2019 Potassium will slightly decrease with diuresis. Monitor electrolytes. 08/05/2019 Potassium normal. Need to monitor for decreased potassium now that she is on furosemide. (9) Leg edema Is this a current diagnosis for this admission?: Yes Plan: 08/04/2019 Chronic lower extremity edema. Erythema is likely due to chronic superficial thrombophlebitis. Cobblestoning of the skin indicates longstanding severe lymphedema. Try to elevate extremities when possible 08/05/2019 Continue as above - Plan Summary Summary: 08/05/2019 Patient is notoriously slow to be active. As soon is she is not BiPAP dependent Physical therapy begin working with her in anticipation of discharge. - Time Time Spent with patient: 15-24 minutes Medications reviewed and adjusted accordingly: Yes Anticipated discharge: Home with Homehealth
--- NOTE | 2019-08-05 19:19 | PDOC CONSULTATION ---
Consultation-Blank Consultation: CARDIOLOGY CONSULTATION by Dr. Renee Copeland on 08/05/2019. Patient seen at 9:30 AM. 60-minute spent on the patient with more than 50% time spent in direct patient care. CONSULT REQUESTING PHYSICIAN: . [facility] hospitalist physician group. REASON FOR CONSULTATION: Patient with shortness of breath and heart failure. For management. HISTORY OF PRESENT ILLNESS: Patient is a 78-year-old female with known history of chronic atrial fibrillation, diabetes mellitus type 2, hypothyroidism who states that she has been having shortness of breath which is increased over the past few days. She also has had chronic leg edema which is increased. She does have orthopnea and PND. She has symptoms suggestive sleep apnea but does not use CPAP. The patient was here in July 09 with anemia. She has no syncope. She denies any chest pain or discomfort. There is no history of hypertension or coronary artery disease. She states she has no history of asthma or COPD. There is no history of TIA CVA. Past Medical History Cardiac Medical History: Reports: Hyperlipidema, Hypertension Denies: Congestive Heart Failure, Myocardial Infarction Pulmonary Medical History: Denies: Chronic Obstructive Pulmonary Disease (COPD) Endocrine Medical History: Reports: Diabetes Mellitus Type 2, Hypothyroidism, Obesity Musculoskeltal Medical History: Reports: Arthritis Psychiatric Medical History: Reports: Depression Hematology: Reports: Anemia Past Surgical History Past Surgical History: Reports: Cholecystectomy, Tubal Ligation Social History Information Source: Patient, [facility] Records Lives with: Family Smoking Status: Never Smoker Electronic Cigarette use?: No Frequency of Alcohol Use: None Hx Recreational Drug Use: No Hx Prescription Drug Abuse: No - Advance Directive Resuscitation Status: Full Code. She states she has 2 sons who are her surrogate healthcare decision makers. Family History Family History: Reviewed & Not Pertinent Parental Family History Reviewed: Yes Children Family History Reviewed: Yes Sibling(s) Family History Reviewed.: Yes Medication/Allergy Home Medications: Ibuprofen [Motrin Ib] 200 mg PO DAILYP PRN MDD FOR LEG PAIN 07/02/19 Acetaminophen [Tylenol 325 mg Tablet] 650 mg PO Q4HP PRN tablet 07/09/19 Levothyroxine Sodium [Synthroid 0.025 mg Tablet] 0.025 mg PO Q6AM tablet 07/09/19 Melatonin [Melatonin 3 mg Tablet] 6 mg PO QHS tablet 07/09/19 Nystatin [Mycostatin Topical Powder 15 gm] 1 applic TP BID bottle 07/09/19 Aspirin [Aspirin 81 mg Chewable Tablet] 81 mg PO DAILY tab.chew 07/15/19 Ferrous Sulfate [Feosol 325 mg Tablet] 325 mg PO BIDPCBS #60 tablet 07/15/19 Insulin NPH Hum/Reg Insulin Hm [Humulin 70/30 Kwikpen] 100 unit SQ ASDIR PRN 30 Days insuln.pen 07/15/19 Metoprolol Succinate [Toprol Xl 25 mg Tab.sr] 25 mg PO DAILY #30 tab.sr.24h 07/15/19 Pen Needle, Diabetic [Insulin Pen Needle] 1 each MC BID #60 dis.needle 07/15/19 Allergies/Adverse Reactions: She is allergic to codeine Current Medications Generic Name Dose Route Start Last Admin Trade Name Freq PRN Reason Stop Dose Admin Acetaminophen 650 mg 08/04/19 18:58 08/05/19 23:25 Tylenol 325 Mg Tablet PO 09/03/19 18:57 650 mg Q4HP PRN Administration pain or temp greater than 101F Al Hydrox/Mg Hydrox/Simethicone 30 ml 08/04/19 18:58 Maalox Plus Susp 30 Udcup PO 09/03/19 18:57 Q4HP PRN HEARTBURN Aspirin 81 mg 08/04/19 22:00 08/05/19 22:07 Ecotrin 81 Mg Ec Tablet PO 09/03/19 21:59 81 mg QHS ANTONELLA Administration Dextrose 12.5 gm 08/04/19 19:18 Dextrose Inj 50% Syringe (25 Gm/50 Ml) IV 09/03/19 19:17 PRN PRN FOR BG 50-69 IN ALERT PATIENT Protocol Dextrose 25 gm 08/04/19 19:18 Dextrose Inj 50% Syringe (25 Gm/50 Ml) IV 09/03/19 19:17 PRN PRN PER PROTOCOL Protocol Enoxaparin Sodium 40 mg 08/05/19 10:00 08/05/19 10:26 Lovenox Inj 40 Mg/0.4 Ml Disp.Syrin SUBCUT 09/04/19 09:59 40 mg DAILY ANTONELLA Administration Famotidine 20 mg 08/04/19 22:00 08/05/19 22:07 Pepcid 20 Mg Tablet PO 09/03/19 21:59 20 mg Q12 ANTONELLA Administration Ferrous Sulfate 325 mg 08/05/19 09:00 08/05/19 17:39 Feosol 325 Mg Tablet PO 09/04/19 08:59 325 mg BIDPCBS ANTONELLA Administration Furosemide 20 mg 08/05/19 06:00 08/05/19 22:07 Lasix Inj/Pf 20 Mg/2 Ml Sdv IV 09/04/19 05:59 20 mg Q8 ANTONELLA Administration Glucagon 1 mg 08/04/19 19:18 Glucagen Inj 1 Mg Vial IM 09/03/19 19:17 PRN PRN Evaluate for BG < 70 Protocol Glucose 15 gm 08/04/19 19:18 Glutose 40% Gel 15 Gm Tube PO 09/03/19 19:17 PRN PRN FOR BG 50-69 IN ALERT PATIENT Protocol Glucose 30 gm 08/04/19 19:18 Glutose 40% Gel 15 Gm Tube PO 09/03/19 19:17 PRN PRN FOR BG < 50 IN ALERT PATIENT Protocol Insulin Human Isoph/Insulin Regular 28 unit 08/05/19 08:00 08/05/19 08:10 Insulin Inj 70-30 (100 Unit/1 Ml) 3 Ml Vial SUBCUT 09/04/19 07:59 28 unit [id number] ANTONELLA Administration Insulin Human Isoph/Insulin Regular 20 unit 08/05/19 16:00 08/05/19 17:39 Insulin Inj 70-30 (100 Unit/1 Ml) 3 Ml Vial SUBCUT 09/04/19 15:59 20 unit ACSUPPER ANTONELLA Administration Insulin Human Lispro 0 - 12 unit 08/04/19 22:00 08/05/19 22:07 Humalog Insulin 100 Unit/1 Ml 3 Ml Vial SUBCUT 09/03/19 21:59 2 unit ACHS ANTONELLA Administration Protocol Levothyroxine Sodium 0.025 mg 08/05/19 06:00 08/05/19 05:26 Synthroid 0.025 Mg Tablet PO 09/04/19 05:59 0.025 mg Q6AM ANTONELLA Administration Lisinopril 5 mg 08/05/19 10:00 08/05/19 10:22 Prinivil 5 Mg Tablet PO 09/04/19 09:59 Not Given DAILY ANTONELLA Magnesium Hydroxide 30 ml 08/04/19 18:58 Milk Of Magnesia 30 Ml Udcup PO 09/03/19 18:57 HSP PRN FOR CONSTIPATION Melatonin 6 mg 08/04/19 22:00 08/05/19 22:07 Melatonin 3 Mg Tablet PO 09/03/19 21:59 6 mg QHS ANTONELLA Administration Metoprolol Succinate 25 mg 08/05/19 10:00 08/05/19 10:26 Toprol Xl 25 Mg Tab.Sr PO 09/04/19 09:59 25 mg DAILY ANTONELLA Administration Nitroglycerin 1 tab 08/04/19 18:58 Nitrostat 0.4 Mg (1/150 Gr) Tabs 25/Bottle SL 09/03/19 18:57 Q5MP PRN FOR CHEST PAIN Potassium Chloride 20 meq 08/05/19 10:00 08/05/19 10:26 Klor-Con 10 Meq Tablet Er PO 09/04/19 09:59 20 meq DAILY ANTONELLA Administration Promethazine HCl 12.5 mg 08/04/19 18:58 08/05/19 23:25 Phenergan Inj 25 Mg/1 Ml Vial IV 09/03/19 18:57 12.5 mg Q4HP PRN Administration FOR NAUSEA/VOMITING Sodium Chloride 2.5 ml 08/04/19 22:00 08/05/19 22:13 Saline Flush 2.5 Ml Monoject Prefil Syrin IV 09/03/19 21:59 Not Given Q8 ANTONELLA Discontinued Medications Generic Name Dose Route Start Last Admin Trade Name Freq PRN Reason Stop Dose Admin Furosemide 20 mg 08/04/19 22:00 08/04/19 22:38 Lasix Inj/Pf 20 Mg/2 Ml Sdv IV 09/03/19 21:59 20 mg Q12 ANTONELLA Administration Metoprolol Succinate 25 mg 08/05/19 10:00 Toprol Xl 25 Mg Tab.Sr PO 09/04/19 09:59 DAILY ANTONELLA Review of Systems All systems: reviewed and no additional remarkable complaints except as stated Cardiovascular: PRESENT: edema Respiratory: PRESENT: dyspnea Integumentary: PRESENT: pruritus PHYSICAL EXAMINATION: The patient is morbidly obese. At present on BiPAP with mild respiratory distress. Selected Entries 08/05/19 10:35 Temperature 98.6 F Temperature Axillary Source Pulse Rate 63 Respiratory 27 H Rate Blood Pressure 116/66 Blood Pressure 82 Mean BP Location Left Arm BP Position Supine O2 Sat by Pulse 96 Oximetry Oxygen Delivery Bipap Method HEAD: Is atraumatic normocephalic. EYES: Pupils are equal round regular reactive to light accommodation. Extraocular movements are normal. THERE IS NO CONJUNCTIVAL PALLOR. THERE IS NO SCLERAL ICTERUS. EARS: TYMPANIC MEMBRANES ARE INTACT. EXTERNAL AUDITORY CANALS ARE CLEAR. NOSE: THERE IS NO DEVIATED NASAL SEPTUM. THERE IS NO INFLAMMATION OF THE NASAL MUCOUS MEMBRANE. MOUTH: MUCOUS MEMBRANES OF THE MOUTH ARE MOIST. TONGUE IS MOIST. THERE IS NO ULCERS. THROAT: THERE IS NO REDNESS OF THE OROPHARYNX. THERE IS NO EXUDATES. SKIN: THERE IS NO SKIN RASHES THERE IS NO PETECHIA OR ECCHYMOSIS THERE IS NO SKIN LESIONS. There is been just stasis dermatitis of the lower extremities. NECK: Supple. There is JVD present. Carotids are equal there is no bruit. There is no lymphadenopathy there is no goiter. LUNGS: Shows decreased breath sounds bilaterally. There is a few fine bibasilar rales of left heart failure. There is no rhonchi or wheezing. HEART: S1-S2 is heard. S1 is variable intensity. There is no S3 gallop. There is no S4 gallop. There is systolic murmur at the left sternal border and the apex there is no rub. ABDOMEN: Is obese nontender there is no paraspinal megaly there is no masses or tender areas. There is no rebound guarding rigidity. Abdomen is obese. EXTREMITIES: Femorals are deep. Femorals are difficult to palpate. Leg pulses difficult to palpate. There is no femoral bruits. There is 1+ to 2- bilateral pedal edema with venous stasis dermatitis changes. There is no DVT or cellulitis. There is no calf tenderness. There is no cyanosis or clubbing. GEODETIC ADVISOR: The patient is conscious awake alert oriented x3 with no focal deficits. PSYCHIATRIC: The patient judgment site are intact her affect is normal. EKG:ATRIAL FIBRILLATION [LVOLT] . LOW VOLTAGE THROUGHOUT [AMI1] . BORDERLINE R WAVE PROGRESSION, ANTERIOR LEADS Labs- Entire Visit 08/04/19 08/04/19 08/04/19 15:50 15:50 15:50 WBC 9.3 RBC 4.26 Hgb 10.8 L Hct 35.9 L MCV 84 D MCH 25.4 L MCHC 30.2 L RDW 33.9 H Plt Count 254 Lymph % (Auto) 13.7 [place] % (Auto) 7.4 Eos % (Auto) 1.5 Baso % (Auto) 1.2 Absolute Neuts (auto) 7.1 Absolute Lymphs (auto) 1.3 Absolute Monos (auto) 0.7 Absolute Eos (auto) 0.1 Absolute Basos (auto) 0.1 Seg Neutrophils % 76.2 Toxic Granulation SLIGHT Giant Platelets PRESENT Platelet Comment ADEQUATE Polychromasia SLIGHT Anisocytosis 4+ Carbonic Acid HCO3/H2CO3 Ratio ABG pH ABG pCO2 ABG pO2 ABG HCO3 ABG Total CO2 ABG O2 Saturation ABG Base Excess FiO2 Sodium 140.1 Potassium 5.3 H Chloride 106 Carbon Dioxide 29 Anion Gap 5 BUN 20 Creatinine 0.85 Est GFR ( Amer) > 60 Est GFR (MDRD) Non-Af > 60 Glucose 206 H POC Glucose Lactic Acid Calcium 8.6 Magnesium Total Bilirubin 0.5 Direct Bilirubin 0.1 Neonat Total Bilirubin Not Reportable Neonat Direct Bilirubin Not Reportable Neonat Indirect Bili Not Reportable AST 27 ALT 12 Alkaline Phosphatase 75 Creatine Kinase 31 CK-MB (CK-2) 0.98 Troponin I < 0.012 NT-Pro-B Natriuret Pep 1990 H Total Protein 6.9 Albumin 3.1 L Triglycerides Cholesterol LDL Cholesterol Direct VLDL Cholesterol HDL Cholesterol Urine Color Urine Appearance Urine pH Ur Specific [place] Urine Protein Urine Glucose (UA) Urine Ketones Urine Blood Urine Nitrite Urine Bilirubin Urine Urobilinogen Ur Leukocyte Esterase Urine WBC (Auto) Urine RBC (Auto) U Hyaline Cast (Auto) Squamous Epi Cells Auto Urine Ascorbic Acid 08/04/19 08/04/19 08/04/19 15:50 15:50 21:49 WBC RBC Hgb Hct MCV MCH MCHC RDW Plt Count Lymph % (Auto) [place] % (Auto) Eos % (Auto) Baso % (Auto) Absolute Neuts (auto) Absolute Lymphs (auto) Absolute Monos (auto) Absolute Eos (auto) Absolute Basos (auto) Seg Neutrophils % Toxic Granulation Giant Platelets Platelet Comment Polychromasia Anisocytosis Carbonic Acid 1.50 H HCO3/H2CO3 Ratio 18:1 ABG pH 7.36 ABG pCO2 49.7 H ABG pO2 153.7 H ABG HCO3 27.4 H ABG Total CO2 29.0 H ABG O2 Saturation 98.9 H ABG Base Excess 1.4 FiO2 40% Sodium Potassium Chloride Carbon Dioxide Anion Gap BUN Creatinine Est GFR ( Amer) Est GFR (MDRD) Non-Af Glucose POC Glucose 123 H Lactic Acid 1.3 Calcium Magnesium Total Bilirubin Direct Bilirubin Neonat Total Bilirubin Neonat Direct Bilirubin Neonat Indirect Bili AST ALT Alkaline Phosphatase Creatine Kinase CK-MB (CK-2) Troponin I NT-Pro-B Natriuret Pep Total Protein Albumin Triglycerides Cholesterol LDL Cholesterol Direct VLDL Cholesterol HDL Cholesterol Urine Color Urine Appearance Urine pH Ur Specific [place] Urine Protein Urine Glucose (UA) Urine Ketones Urine Blood Urine Nitrite Urine Bilirubin Urine Urobilinogen Ur Leukocyte Esterase Urine WBC (Auto) Urine RBC (Auto) U Hyaline Cast (Auto) Squamous Epi Cells Auto Urine Ascorbic Acid 08/05/19 08/05/19 08/05/19 01:15 05:00 05:00 WBC RBC Hgb Hct MCV MCH MCHC RDW Plt Count Lymph % (Auto) [place] % (Auto) Eos % (Auto) Baso % (Auto) Absolute Neuts (auto) Absolute Lymphs (auto) Absolute Monos (auto) Absolute Eos (auto) Absolute Basos (auto) Seg Neutrophils % Toxic Granulation Giant Platelets Platelet Comment Polychromasia Anisocytosis Carbonic Acid HCO3/H2CO3 Ratio ABG pH ABG pCO2 ABG pO2 ABG HCO3 ABG Total CO2 ABG O2 Saturation ABG Base Excess FiO2 Sodium 140.4 Potassium 4.9 Chloride 105 Carbon Dioxide 30 Anion Gap 5 BUN 19 Creatinine 0.87 Est GFR ( Amer) > 60 Est GFR (MDRD) Non-Af > 60 Glucose 171 H POC Glucose Lactic Acid Calcium 8.6 Magnesium 1.9 Total Bilirubin Direct Bilirubin Neonat Total Bilirubin Neonat Direct Bilirubin Neonat Indirect Bili AST ALT Alkaline Phosphatase Creatine Kinase CK-MB (CK-2) Troponin I < 0.012 NT-Pro-B Natriuret Pep Total Protein Albumin Triglycerides 62 Cholesterol 113.97 LDL Cholesterol Direct 74 VLDL Cholesterol 12.0 HDL Cholesterol 32 L Urine Color YELLOW Urine Appearance CLEAR Urine pH 5.0 Ur Specific [place] 1.009 Urine Protein NEGATIVE Urine Glucose (UA) NEGATIVE Urine Ketones NEGATIVE Urine Blood NEGATIVE Urine Nitrite NEGATIVE Urine Bilirubin NEGATIVE Urine Urobilinogen NEGATIVE Ur Leukocyte Esterase NEGATIVE Urine WBC (Auto) 0 Urine RBC (Auto) 0 U Hyaline Cast (Auto) 5 Squamous Epi Cells Auto <1 Urine Ascorbic Acid NEGATIVE 08/05/19 08/05/19 08/05/19 06:58 10:33 15:31 WBC RBC Hgb Hct MCV MCH MCHC RDW Plt Count Lymph % (Auto) [place] % (Auto) Eos % (Auto) Baso % (Auto) Absolute Neuts (auto) Absolute Lymphs (auto) Absolute Monos (auto) Absolute Eos (auto) Absolute Basos (auto) Seg Neutrophils % Toxic Granulation Giant Platelets Platelet Comment Polychromasia Anisocytosis Carbonic Acid HCO3/H2CO3 Ratio ABG pH ABG pCO2 ABG pO2 ABG HCO3 ABG Total CO2 ABG O2 Saturation ABG Base Excess FiO2 Sodium Potassium Chloride Carbon Dioxide Anion Gap BUN Creatinine Est GFR ( Amer) Est GFR (MDRD) Non-Af Glucose POC Glucose 145 H 200 H 161 H Lactic Acid Calcium Magnesium Total Bilirubin Direct Bilirubin Neonat Total Bilirubin Neonat Direct Bilirubin Neonat Indirect Bili AST ALT Alkaline Phosphatase Creatine Kinase CK-MB (CK-2) Troponin I NT-Pro-B Natriuret Pep Total Protein Albumin Triglycerides Cholesterol LDL Cholesterol Direct VLDL Cholesterol HDL Cholesterol Urine Color Urine Appearance Urine pH Ur Specific [place] Urine Protein Urine Glucose (UA) Urine Ketones Urine Blood Urine Nitrite Urine Bilirubin Urine Urobilinogen Ur Leukocyte Esterase Urine WBC (Auto) Urine RBC (Auto) U Hyaline Cast (Auto) Squamous Epi Cells Auto Urine Ascorbic Acid 08/05/19 21:50 WBC RBC Hgb Hct MCV MCH MCHC RDW Plt Count Lymph % (Auto) [place] % (Auto) Eos % (Auto) Baso % (Auto) Absolute Neuts (auto) Absolute Lymphs (auto) Absolute Monos (auto) Absolute Eos (auto) Absolute Basos (auto) Seg Neutrophils % Toxic Granulation Giant Platelets Platelet Comment Polychromasia Anisocytosis Carbonic Acid HCO3/H2CO3 Ratio ABG pH ABG pCO2 ABG pO2 ABG HCO3 ABG Total CO2 ABG O2 Saturation ABG Base Excess FiO2 Sodium Potassium Chloride Carbon Dioxide Anion Gap BUN Creatinine Est GFR ( Amer) Est GFR (MDRD) Non-Af Glucose POC Glucose 170 H Lactic Acid Calcium Magnesium Total Bilirubin Direct Bilirubin Neonat Total Bilirubin Neonat Direct Bilirubin Neonat Indirect Bili AST ALT Alkaline Phosphatase Creatine Kinase CK-MB (CK-2) Troponin I NT-Pro-B Natriuret Pep Total Protein Albumin Triglycerides Cholesterol LDL Cholesterol Direct VLDL Cholesterol HDL Cholesterol Urine Color Urine Appearance Urine pH Ur Specific [place] Urine Protein Urine Glucose (UA) Urine Ketones Urine Blood Urine Nitrite Urine Bilirubin Urine Urobilinogen Ur Leukocyte Esterase Urine WBC (Auto) Urine RBC (Auto) U Hyaline Cast (Auto) Squamous Epi Cells Auto Urine Ascorbic Acid Chest X-Ray 08/04/19 15:38 IMPRESSION: Cardiomegaly and basilar predominant hazy opacities that obscure the contours of the hemidiaphragms and blunt the costophrenic sulci. Clinical correlation for signs and symptoms of volume overload/ CHF is recommended. IMPRESSION/RECOMMENDATION: 1. Acute on chronic right ventricular systolic heart failure. This is most likely secondary to significant pulmonary hypertension. Would recommend stopping the patient's metoprolol. Started the patient on Cardizem 30 mg p.o. every 8 hours. Would also add an ARB. 2. Mild left ventricular diastolic heart failure most likely. Await echo. 3. Suspect severe pulmonary hypertension: Await echocardiogram. As mentioned earlier we will treat the patient with Cardizem and losartan. 4. Chronic atrial fibrillation: Note the patient's corrected Nima Vasc score is 4. But the patient has a history of recent anemia most likely secondary to GI bleed. Hence we will hold off on chronic anticoagulation. 5. Diabetes mellitus type 2 insulin-dependent. 6. Hypothyroidism: Continue thyroid replacement. 7. Suspected obstructive sleep apnea: The patient is not a good historian is not clear if the patient did have a sleep study done if not she should have a sleep study and would benefit from CPAP/BiPAP. 8. Morbid obesity. Await echocardiogram. Medications reviewed. Medications adjusted. Medical decision making is of high complexity. Medical regimen management plan discussed with attending physician on the case. For 60-minute spent with collin cavazos more than 50% time spent direct patient care. Will follow.
[2019-08-05] MEDS: ASPIRIN 81 MG TABLET, ENT COATED PO SCH (22:07)
[2019-08-05] MEDS: MELATONIN 3 MG TABLET PO SCH (22:07)
[2019-08-05] MEDS: ACETAMINOPHEN 325 MG TABLET PO PRN (23:25)
[2019-08-06] MEDS: LEVOTHYROXINE SODIUM 0.025 MG TABLET PO SCH (05:52)
[2019-08-06] MEDS: FUROSEMIDE INJ/PF 20 MG/2 ML SDV IV SCH ×3 (05:52→22:39)
[2019-08-06] MEDS ORDERED: DILTIAZEM HCL 60 MG TABLET PO SCH (06:00)
[2019-08-06] MEDS: INSULIN LISPRO 100 UNIT/ML 3 ML VIAL SUBCUT SCH ×4 (08:08→22:34)
[2019-08-06] MEDS: HUM INSULIN NPH/REG INSULIN HM 100 UNIT/1 ML 3 ML SUBCUT SCH ×2 (09:19→17:26)
[2019-08-06] MEDS: FERROUS SULFATE 325 MG TABLET PO SCH ×2 (09:20→17:27)
[2019-08-06] MEDS: FAMOTIDINE 20 MG TABLET PO SCH ×2 (09:20→22:39)
[2019-08-06] MEDS: POTASSIUM CHLORIDE 10 MEQ TABLET.ER PO SCH (09:20)
[2019-08-06] MEDS: LISINOPRIL 5 MG TABLET PO SCH (09:20)
[2019-08-06] MEDS: ENOXAPARIN SODIUM INJ 40 MG/0.4 ML DISP.SYRIN SUBCUT SCH (09:20)
--- NOTE | 2019-08-06 09:52 | XCELERA REPORT ---
[address] [address] Transthoracic Echocardiogram Report Name: MICHAELA WESLEY Age: 78 yrs Gender: Female : 1940 Patient Status: Inpatient Patient Location: [address] [place] [address] Study Date: 08/05/2019 07:38 PM Height: 65 in Weight: 383 lb BSA: 2.6 m2 Procedure: A two-dimensional transthoracic echocardiogram with color flow and Doppler was performed. The study was technically limited with all images being suboptimal in quality. Reason For Study: Cardiomegaly with new onset heart failure History: CARDIOMEGALY / CHF. Ordering Physician: TRESSA LYN Performed By: Genoveva Choi Interpretation Summary There is normal left ventricular wall thickness. Probaly upper normal to mildly dilated LV. Probably no regional wall motion abnormality,and probably normal LVEF of greater than 55%. LV diastolic function could not be adequately assessed due to atrial fibrilation. Unable to assess ASD ,VSD , or PFO. The right ventricle is moderately dilated. The right ventricle is not well visualized secondary to technical limitations The right ventricular systolic function is moderately reduced. The right atrium is moderately dilated. The left atrium is moderately dilated. There is mild to moderate mitral leaflet calcification. There is mild mitral annular calcification. There is no vegetation seen on the mitral valve. There is no mitral valve stenosis. There is a mild to moderate amount of mitral regurgitation There is no aortic valvular vegetation. There is no aortic valve stenosis There is aortic sclerosis without aortic stenosis. There is no LVOT obstruction. No aortic regurgitation is present. There is no tricuspid stenosis. There is a moderate amount of tricuspid regurgitation There is servere pulmonary hypertension by echo RVSP is 65 to 70 mm of Hg , with RA meaaaaan of 15 to 20. There is no pulmonic valvular stenosis. There is a trace amount of pulmonic regurgitation The aortic root is not well visualized but is probably normal size. The inferior vena cava appeared dilated and decreased < 50% with respiration (RAP 15-20 mmHg) There is no pericardial effusion. MMode/2D Measurements & Calculations RVDd: 3.6 cm LVIDd: 6.1 cm FS: 21.7 % Ao root diam: 3.2 cm IVSd: 1.1 cm LVIDs: 4.7 cm EDV(Teich): 183.9 ml Ao root area: 8.0 cm2 LVPWd: 0.97 cm ESV(Teich): 104.6 ml LA dimension: 4.8 cm EF(Teich): 43.1 % Doppler Measurements & Calculations MV E max zunilda: MV P1/2t max zunilda: Ao V2 max: LV V1 max P.2 cm/sec 165.9 cm/sec 133.3 cm/sec 6.9 mmHg MV P1/2t: 70.2 msec Ao max P.1 mmHgLV V1 max: MVA(P1/2t): 3.1 cm2 131.6 cm/sec MV dec slope: 692.0 cm/sec2 MV dec time: 0.21 sec PA V2 max: TR max zunilda: MV P1/2t-pr_phl: 109.1 cm/sec 352.9 cm/sec 70.2 msec PA max P.8 mmHgTR max P.8 mmHg Left Ventricle There is normal left ventricular wall thickness. Probaly upper normal to mildly dilated LV. Probably no regional wall motion abnormality,and probably normal LVEF of greater than 55%. LV diastolic function could not be adequately assessed due to atrial fibrilation. There is no thrombus. Unable to assess ASD ,VSD , or PFO. Right Ventricle The right ventricle is moderately dilated. The right ventricle is not well visualized secondary to technical limitations. The right ventricular systolic function is moderately reduced. Atria The right atrium is moderately dilated. The left atrium is moderately dilated. Mitral Valve There is mild to moderate mitral leaflet calcification. There is mild mitral annular calcification. There is no evidence of mitral valve prolapse. There is no vegetation seen on the mitral valve. There is no mitral valve stenosis. There is a mild to moderate amount of mitral regurgitation. Aortic Valve There is no aortic valvular vegetation. There is no aortic valve stenosis. There is aortic sclerosis without aortic stenosis. There is no LVOT obstruction. No aortic regurgitation is present. Tricuspid Valve There is no tricuspid stenosis. There is a moderate amount of tricuspid regurgitation. There is servere pulmonary hypertension by echo. RVSP is 65 to 70 mm of Hg , with RA meaaaaan of 15 to 20. Pulmonic Valve There is no pulmonic valvular stenosis. There is a trace amount of pulmonic regurgitation. Great Vessels The aortic root is not well visualized but is probably normal size. The inferior vena cava appeared dilated and decreased < 50% with respiration (RAP 15-20 mmHg). Effusions There is no pericardial effusion. : TRESSA LYN Lakshmi
[2019-08-06] MEDS ORDERED: LOSARTAN POTASSIUM 25 MG TABLET PO SCH (10:00)
--- NOTE | 2019-08-06 11:12 | PDOC PROGRESS REPORT ---
Subjective Progress Note for:: 08/06/19 Subjective:: Patient is still on BiPAP. I believe she only takes it off for small window such as meals but she appears fairly comfortable. She has no new complaints. Reason For Visit: HEART FAILURE DIABETES MELLITUS MORBID OBESITY Physical Exam Vital Signs: Temp Pulse Resp BP Pulse Ox 97.5 F 85 24 H 116/58 L 94 08/06/19 07:37 08/06/19 07:37 08/06/19 07:37 08/06/19 07:37 08/06/19 07:37 Intake & Output 08/05/19 08/06/19 08/07/19 06:59 06:59 06:59 Intake Total 250 2009 Output Total 400 2024 Balance -150 -15 Weight 174 kg 174.4 kg General appearance: PRESENT: no acute distress, cooperative, morbidly obese Ear exam: PRESENT: normal external ear exam. ABSENT: bleeding, drainage Respiratory exam: PRESENT: rales - Faint rales at bases but difficult to auscultate due to body habitus, symmetrical, tachypnea, unlabored. ABSENT: rhonchi, wheezes Cardiovascular exam: PRESENT: irregular rhythm, +S1, +S2. ABSENT: tachycardia GI/Abdominal exam: PRESENT: normal bowel sounds, soft, other - Pendulous abdomen. ABSENT: distended, guarding, tenderness Rectal exam: PRESENT: deferred Gentrourinary exam: PRESENT: indwelling catheter Extremities exam: PRESENT: pedal edema - Chronic, +2 edema - Chronic lower extremity lymphedema Neurological exam: PRESENT: alert, awake, oriented to person, oriented to place, oriented to situation. ABSENT: altered Psychiatric exam: PRESENT: flat affect. ABSENT: agitated, anxious Focused psych exam: ABSENT: delusional, paranoid, restlessness Skin exam: PRESENT: erythema - Both lower extremities consistent with chronic lymphedema and superficial thrombophlebitis Results Laboratory Results: 08/04/19 15:50 08/05/19 05:00 08/06/19 05:05 C-Reactive Protein 48.9 H 08/04/19 08/04/19 08/05/19 15:50 15:50 05:00 Creatine Kinase 31 CK-MB (CK-2) 0.98 Troponin I < 0.012 < 0.012 NT-Pro-B Natriuret Pep 1990 H Impressions: Chest X-Ray 08/04/19 15:38 IMPRESSION: Cardiomegaly and basilar predominant hazy opacities that obscure the contours of the hemidiaphragms and blunt the costophrenic sulci. Clinical correlation for signs and symptoms of volume overload/ CHF is recommended. Assessment and Plan - Diagnosis (1) Acute respiratory failure with hypoxia Is this a current diagnosis for this admission?: Yes Plan: 08/04/2019 Secondary to heart failure with underlying morbid obesity hypoventilation. Patient denies sleep apnea. BiPAP for now. Wean off of BiPAP as tolerated. 08/05/2019 Continues to need BiPAP almost continuously 08/06/2019 Still significantly dependent on BiPAP. New diagnosis of severe pulmonary hypertension. This may make it more difficult to resolve her respiratory failure. Continue BiPAP and current regimen. (2) Congestive heart failure (CHF) Qualifiers: Heart failure type: unspecified Heart failure chronicity: unspecified Qualified Code(s): I50.9 - Heart failure, unspecified Is this a current diagnosis for this admission?: Yes Plan: 08/04/2019 I cannot find an old echocardiogram therefore I will order an echocardiogram. We will utilize diuretics. She is already on metoprolol for her fibrillation. Will monitor on telemetry and observe intake and output. 08/05/2019 Still not a significant negative fluid balance. I am going to keep the furosemide at 20 mg every 8 hours to try and avoid hypotension. Echocardiogram is pending. The patient will be seen by cardiology as well. 08/06/2019 Ejection fraction is 55% and diastolic function could not be assessed due to atrial fibrillation. She does have severe pulmonary hypertension and this is the likely instigating factor. We are maintaining a negative fluid balance. Continue current regimen. (3) Pulmonary hypertension Is this a current diagnosis for this admission?: Yes Plan: 08/06/2019 Echocardiogram revealed severe pulmonary hypertension. Dr. Landis did make some changes in her medication regimen. We will continue to monitor closely. (4) Hyperglycemia due to type 2 diabetes mellitus Qualifiers: Diabetes mellitus terminal make up operator insulin use: with group home use Qualified Code(s): E11.65 - Type 2 diabetes mellitus with hyperglycemia; Z79.4 - [facility] (current) use of insulin Is this a current diagnosis for this admission?: Yes Plan: 08/04/2019 Consistent carbohydrate diet. Insulin therapy with Accu-Cheks before meals and at bedtime. 08/05/2019 Accu-Cheks are variable but for the most part under 200. Continue current regimen. 08/06/2019 Continue current regimen. Reasonable control of glucose at this time. (5) Longstanding persistent atrial fibrillation Is this a current diagnosis for this admission?: Yes Plan: 08/04/2019 Continue metoprolol. Monitor on telemetry. Will have cardiology consult and consider anticoagulation. 08/05/2019 No changes at this time 08/06/2019 Because of the new diagnosis of pulmonary hypertension cardiology has made some changes to the patient's regimen. Diltiazem has been increased and losartan has been added. (6) Hypothyroidism Qualifiers: Hypothyroidism type: unspecified Qualified Code(s): E03.9 - Hypothyroidism, unspecified Is this a current diagnosis for this admission?: Yes Plan: 08/04/2019 Continue levothyroxine 08/06/2019 No change (7) Iron deficiency anemia Qualifiers: Iron deficiency anemia type: unspecified iron deficiency Qualified Code(s): D50.9 - Iron deficiency anemia, unspecified Is this a current diagnosis for this admission?: Yes Plan: 08/04/2019 Continue iron supplement 08/06/2019 We will recheck CBC tomorrow. Continue iron supplement. (8) Hyperkalemia Is this a current diagnosis for this admission?: Yes Plan: 08/04/2019 Potassium will slightly decrease with diuresis. Monitor electrolytes. 08/05/2019 Potassium normal. Need to monitor for decreased potassium now that she is on furosemide. 08/06/2019 Continue potassium supplement. Will recheck electrolytes tomorrow. (9) Morbid obesity Is this a current diagnosis for this admission?: Yes Plan: 08/04/2019 BMI is 63.8. This certainly adds to the comorbidities. Likely a component of obesity hypoventilation and possible sleep apnea. Morbid obesity also puts strain on the heart and his diet for diabetes. Also contributes to the chronic lower extremity edema and chronic thrombophlebitis. (10) Leg edema Is this a current diagnosis for this admission?: Yes Plan: 08/04/2019 Chronic lower extremity edema. Erythema is likely due to chronic superficial thrombophlebitis. Cobblestoning of the skin indicates longstanding severe lymphedema. Try to elevate extremities when possible 08/05/2019 Continue as above - Plan Summary Summary: 08/05/2019 Patient is notoriously slow to be active. As soon is she is not BiPAP dependent Physical therapy begin working with her in anticipation of discharge. - Time Time Spent with patient: 15-24 minutes Medications reviewed and adjusted accordingly: Yes
[2019-08-06] MEDS: DILTIAZEM HCL 60 MG TABLET PO SCH ×2 (17:28→23:46)
[2019-08-06] MEDS: LOSARTAN POTASSIUM 25 MG TABLET PO SCH (22:35)
[2019-08-06] MEDS: MELATONIN 3 MG TABLET PO SCH (22:39)
[2019-08-06] MEDS: ASPIRIN 81 MG TABLET, ENT COATED PO SCH (22:39)
[2019-08-07] MEDS: NYSTATIN TOPICAL POWDER 15 GM TP SCH ×4 (04:00→17:57)
[2019-08-07] MEDS: FUROSEMIDE INJ/PF 20 MG/2 ML SDV IV SCH ×3 (06:28→21:50)
[2019-08-07] MEDS: DILTIAZEM HCL 60 MG TABLET PO SCH ×3 (06:28→17:56)
[2019-08-07] MEDS: LEVOTHYROXINE SODIUM 0.025 MG TABLET PO SCH (06:28)
[2019-08-07 07:33] LABS: ABSOLUTE BASOPHILS # (AUTO) 0.1 10^3/uL (0.0-0.2); ABSOLUTE EOSINOPHILS # (AUTO) 0.2 10^3/uL (0.0-0.6); ABSOLUTE LYMPHOCYTES (AUTO) 1.3 10^3/uL (0.5-4.7); ABSOLUTE MONOCYTES (AUTO) 0.8 10^3/uL (0.1-1.4); ABSOLUTE NEUT (AUTO) 7.1 10^3/uL (1.7-8.2); BASOPHILS % (AUTO) 0.8 % (0-2); HEMATOCRIT 32.5 % (36.0-47.0); HEMOGLOBIN 10.1 g/dL (12.0-15.5); LYMPHOCYTES % (AUTO) 13.5 % (13-45); MEAN CORPUSCULAR HEMOGLOBIN 25.7 pg (27.0-33.4); MEAN CORPUSCULAR HGB CONC 31.3 g/dL (32.0-36.0); MEAN CORPUSCULAR VOLUME 82 fl (80-97); PLATELET COUNT 210 10^3/uL (150-450); RED BLOOD COUNT 3.94 10^6/uL (3.72-5.28); RED CELL DISTRIBUTION WIDTH 31.9 % (11.5-14.0); SEGMENTED NEUTROPHILS % (AUTO) 75.7 % (42-78); TOTAL CELLS COUNTED % (AUTO) 100 %; WHITE BLOOD COUNT 9.4 10^3/uL (4.0-10.5)
[2019-08-07 07:42] LABS: ANION GAP 5 (5-19); BLOOD UREA NITROGEN 20 mg/dL (7-20); CALCIUM 8.6 mg/dL (8.4-10.2); CARBON DIOXIDE 30 mmol/L (22-30); CHLORIDE 104 mmol/L (98-107); GLUCOSE 74 mg/dL (75-110); POTASSIUM 4.3 mmol/L (3.6-5.0)
[2019-08-07] MEDS: INSULIN LISPRO 100 UNIT/ML 3 ML VIAL SUBCUT SCH ×4 (07:55→21:51)
[2019-08-07] MEDS: HUM INSULIN NPH/REG INSULIN HM 100 UNIT/1 ML 3 ML SUBCUT SCH ×2 (07:56→17:46)
[2019-08-07 07:58] LABS: ANISOCYTOSIS 4+; PLATELET COMMENT ADEQUATE; PLATELET LARGE PRESENT; POIKILOCYTOSIS SLIGHT; POLYCHROMASIA SLIGHT; TEAR DROP CELLS SLIGHT
[2019-08-07] MEDS: FERROUS SULFATE 325 MG TABLET PO SCH ×2 (08:16→17:45)
[2019-08-07] MEDS: ENOXAPARIN SODIUM INJ 40 MG/0.4 ML DISP.SYRIN SUBCUT SCH (10:23)
[2019-08-07] MEDS: LISINOPRIL 5 MG TABLET PO SCH (10:23)
[2019-08-07] MEDS: LOSARTAN POTASSIUM 25 MG TABLET PO SCH ×2 (10:23→21:51)
[2019-08-07] MEDS: ACETAMINOPHEN 325 MG TABLET PO PRN (10:23)
[2019-08-07] MEDS: FAMOTIDINE 20 MG TABLET PO SCH (10:23)
[2019-08-07] MEDS: POTASSIUM CHLORIDE 10 MEQ TABLET.ER PO SCH (10:24)
--- NOTE | 2019-08-07 11:39 | PDOC PROGRESS REPORT ---
Subjective Progress Note for:: 08/07/19 Subjective:: Patient is still on BiPAP. She desats immediately if she removes the BiPAP. She was asking when she was going to go home. See discussion below. Reason For Visit: HEART FAILURE DIABETES MELLITUS MORBID OBESITY Physical Exam Vital Signs: Temp Pulse Resp BP Pulse Ox 97.6 F 75 20 109/57 L 96 08/07/19 07:54 08/07/19 07:54 08/07/19 08:00 08/07/19 07:54 08/07/19 08:00 Intake & Output 08/06/19 08/07/19 08/08/19 06:59 06:59 06:59 Intake Total 2009 1139 Output Total 2024 3724 Balance -15 Weight 174.4 kg 173.8 kg General appearance: PRESENT: cooperative, morbidly obese, other - Still with mild to moderate distress dependent on BiPAP. Head exam: PRESENT: atraumatic, normocephalic Ear exam: PRESENT: normal external ear exam. ABSENT: bleeding, drainage Respiratory exam: PRESENT: decreased breath sounds - Difficult to auscultate due to body habitus and noise of the BiPAP machine. Breath sounds are definitely decreased at the bases., symmetrical, tachypnea. ABSENT: rales, rhonchi, wheezes Cardiovascular exam: PRESENT: irregular rhythm GI/Abdominal exam: PRESENT: normal bowel sounds, soft, other - Pendulous abdomen. ABSENT: guarding, tenderness Rectal exam: PRESENT: deferred Gentrourinary exam: PRESENT: indwelling catheter Extremities exam: PRESENT: +2 edema Neurological exam: PRESENT: alert, awake, oriented to person, oriented to place, oriented to time, oriented to situation, CN II-XII grossly intact. ABSENT: altered Psychiatric exam: PRESENT: appropriate affect. ABSENT: agitated, anxious Skin exam: PRESENT: erythema Results Laboratory Results: 08/07/19 06:33 08/07/19 06:33 08/07/19 08/07/19 06:33 06:33 WBC 9.4 RBC 3.94 Hgb 10.1 L Hct 32.5 L MCV 82 MCH 25.7 L MCHC 31.3 L RDW 31.9 H Plt Count 210 Seg Neutrophils % 75.7 Sodium 139.0 Potassium 4.3 Chloride 104 Carbon Dioxide 30 Anion Gap 5 BUN 20 Creatinine 0.95 Est GFR ( Amer) > 60 Glucose 74 L Calcium 8.6 Magnesium 1.6 08/04/19 08/04/19 08/05/19 15:50 15:50 05:00 Creatine Kinase 31 CK-MB (CK-2) 0.98 Troponin I < 0.012 < 0.012 NT-Pro-B Natriuret Pep 1990 H Impressions: Chest X-Ray 08/04/19 15:38 IMPRESSION: Cardiomegaly and basilar predominant hazy opacities that obscure the contours of the hemidiaphragms and blunt the costophrenic sulci. Clinical correlation for signs and symptoms of volume overload/ CHF is recommended. Assessment and Plan - Diagnosis (1) Acute respiratory failure with hypoxia Is this a current diagnosis for this admission?: Yes Plan: 08/04/2019 Secondary to heart failure with underlying morbid obesity hypoventilation. Patient denies sleep apnea. BiPAP for now. Wean off of BiPAP as tolerated. 08/05/2019 Continues to need BiPAP almost continuously 08/06/2019 Still significantly dependent on BiPAP. New diagnosis of severe pulmonary hypertension. This may make it more difficult to resolve her respiratory failure. Continue BiPAP and current regimen. 08/07/2019 Still dependent on BiPAP. (2) Congestive heart failure (CHF) Qualifiers: Heart failure type: right-sided Heart failure chronicity: acute on chronic Qualified Code(s): I50.813 - Acute on chronic right heart failure Is this a current diagnosis for this admission?: Yes Plan: 08/04/2019 I cannot find an old echocardiogram therefore I will order an echocardiogram. We will utilize diuretics. She is already on metoprolol for her fibrillation. Will monitor on telemetry and observe intake and output. 08/05/2019 Still not a significant negative fluid balance. I am going to keep the furosemide at 20 mg every 8 hours to try and avoid hypotension. Echocardiogram is pending. The patient will be seen by cardiology as well. 08/06/2019 Ejection fraction is 55% and diastolic function could not be assessed due to atrial fibrillation. She does have severe pulmonary hypertension and this is the likely instigating factor. We are maintaining a negative fluid balance. Continue current regimen. 08/07/2019 As noted above she has severe pulmonary hypertension. Dr. Copeland has made some adjustments in her medications. This does portend a poor prognosis. (3) Pulmonary hypertension Is this a current diagnosis for this admission?: Yes Plan: 08/06/2019 Echocardiogram revealed severe pulmonary hypertension. Dr. Hickman did make some changes in her medication regimen. We will continue to monitor closely. 08/07/2019 Continue with new medication regimen. Prognosis is poor. (4) Hyperglycemia due to type 2 diabetes mellitus Qualifiers: Diabetes mellitus penitentiary insulin use: with middle or intermediate school principal use Qualified Code(s): E11.65 - Type 2 diabetes mellitus with hyperglycemia; Z79.4 - [facility] (current) use of insulin Is this a current diagnosis for this admission?: Yes Plan: 08/04/2019 Consistent carbohydrate diet. Insulin therapy with Accu-Cheks before meals and at bedtime. 08/05/2019 Accu-Cheks are variable but for the most part under 200. Continue current regimen. 08/06/2019 Continue current regimen. Reasonable control of glucose at this time. 08/07/2019 Accu-Cheks remain reasonably controlled. No changes at this time. (5) Longstanding persistent atrial fibrillation Is this a current diagnosis for this admission?: Yes Plan: 08/04/2019 Continue metoprolol. Monitor on telemetry. Will have cardiology consult and consider anticoagulation. 08/05/2019 No changes at this time 08/06/2019 Because of the new diagnosis of pulmonary hypertension cardiology has made some changes to the patient's regimen. Diltiazem has been increased and losartan has been added. 08/07/2019 Good rate control at this time. No changes. (6) Hypothyroidism Qualifiers: Hypothyroidism type: unspecified Qualified Code(s): E03.9 - Hypothyroidism, unspecified Is this a current diagnosis for this admission?: Yes Plan: 08/04/2019 Continue levothyroxine 08/06/2019 No change (7) Iron deficiency anemia Qualifiers: Iron deficiency anemia type: unspecified iron deficiency Qualified Code(s): D50.9 - Iron deficiency anemia, unspecified Is this a current diagnosis for this admission?: Yes Plan: 08/04/2019 Continue iron supplement 08/06/2019 We will recheck CBC tomorrow. Continue iron supplement. 08/07/2019 Hemoglobin remained stable. (8) Hyperkalemia Is this a current diagnosis for this admission?: Yes Plan: 08/04/2019 Potassium will slightly decrease with diuresis. Monitor electrolytes. 08/05/2019 Potassium normal. Need to monitor for decreased potassium now that she is on furosemide. 08/06/2019 Continue potassium supplement. Will recheck electrolytes tomorrow. 08/07/2019 Normokalemic. No changes. (9) Morbid obesity Is this a current diagnosis for this admission?: Yes Plan: 08/04/2019 BMI is 63.8. This certainly adds to the comorbidities. Likely a component of obesity hypoventilation and possible sleep apnea. Morbid obesity also puts strain on the heart and his diet for diabetes. Also contributes to the chronic lower extremity edema and chronic thrombophlebitis. 08/07/2019 Unfortunately this only compounds her problems. No realistic chance of any significant weight loss at this time. (10) Leg edema Is this a current diagnosis for this admission?: Yes Plan: 08/04/2019 Chronic lower extremity edema. Erythema is likely due to chronic superficial thrombophlebitis. Cobblestoning of the skin indicates longstanding severe lymphedema. Try to elevate extremities when possible 08/05/2019 Continue as above 08/07/2019 Elevate when possible. Continue diuresis. - Plan Summary Summary: 08/05/2019 Patient is notoriously slow to be active. As soon is she is not BiPAP dependent Physical therapy begin working with her in anticipation of discharge. - Time Time Spent with patient: 15-24 minutes Medications reviewed and adjusted accordingly: Yes
[2019-08-07] MEDS: ASPIRIN 81 MG TABLET, ENT COATED PO SCH (21:51)
[2019-08-07] MEDS: MELATONIN 3 MG TABLET PO SCH (21:51)
--- NOTE | 2019-08-07 22:23 | Progress Note ---
Provider Note Provider Note: CARDIOLOGY PROGRESS NOTE by Dr. Renee Copeland on 08/07/2019. OBJECTIVE: The patient states she is feels better with the current treatment. She is still short of breath and has orthopnea. But no chest pain or discomfort. There is some decrease in the leg edema. There is no chest pain or discomfort. There is no palpitations near syncope or syncope. PHYSICAL EXAMINATION: The patient is morbidly obese but in no acute distress. The patient still on the BiPAP. Selected Entries 08/07/19 08/07/19 11:35 12:00 Temperature 97.5 F Temperature Axillary Source Pulse Rate 79 Respiratory 25 H Rate Blood Pressure 112/52 L [Left Upper Arm ] Blood Pressure 72 Mean [Left Upper Arm] Blood Pressure Supine Position [Left Upper Arm] O2 Sat by Pulse 99 Oximetry Oxygen Delivery Bipap Method Percent of 40 Oxygen HEAD: Is atraumatic normocephalic. EYES: Pupils are equal round regular reactive to light accommodation. Extraocular movements are normal. THERE IS NO CONJUNCTIVAL PALLOR. THERE IS NO SCLERAL ICTERUS. EARS: TYMPANIC MEMBRANES ARE INTACT. EXTERNAL AUDITORY CANALS ARE CLEAR. NOSE: THERE IS NO DEVIATED NASAL SEPTUM. THERE IS NO INFLAMMATION OF THE NASAL MUCOUS MEMBRANE. MOUTH: MUCOUS MEMBRANES OF THE MOUTH ARE MOIST. TONGUE IS MOIST. THERE IS NO ULCERS. THROAT: THERE IS NO REDNESS OF THE OROPHARYNX. THERE IS NO EXUDATES. SKIN: THERE IS NO SKIN RASHES THERE IS NO PETECHIA OR ECCHYMOSIS THERE IS NO SKIN LE SIONS. There is been just stasis dermatitis of the lower extremities. NECK: Supple. There is JVD present. Carotids are equal there is no bruit. There is no lymphadenopathy there is no goiter. LUNGS: Shows decreased breath sounds bilaterally. There is a few fine bibasilar rales of left heart failure. There is no rhonchi or wheezing. HEART: S1-S2 is heard. S1 is variable intensity. There is no S3 gallop. There is no S4 gallop. There is systolic murmur at the left sternal border and the apex there is no rub. ABDOMEN: Is obese nontender there is no paraspinal megaly there is no masses or tender areas. There is no rebound guarding rigidity. Abdomen is obese. EXTREMITIES: Femorals are deep. Femorals are difficult to palpate. Leg pulses difficult to palpate. There is no femoral bruits. There is 1+ to 2- bilateral pedal edema with venous stasis dermatitis changes. There is no DVT or cellulitis. There is no calf tenderness. There is no cyanosis or clubbing. 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 PSYCHIATRIC: The patient judgment site are intact her affect is normal. Chest X-Ray 08/04/19 15:38 IMPRESSION: Cardiomegaly and basilar predominant hazy opacities that obscure the contours of the hemidiaphragms and blunt the costophrenic sulci. Clinical correlation for signs and symptoms of volume overload/ CHF is recommended. Labs- All tests 24 hr 08/07/19 08/07/19 08/07/19 11:35 16:08 21:18 POC Glucose 116 H 151 H 151 H 08/08/19 06:11 POC Glucose 148 H IMPRESSION/RECOMMENDATION: 1. Acute on chronic right ventricular systolic heart failure. This is most likely secondary to significant pulmonary hypertension. Would recommend stopping the patient's metoprolol. Started the patient on Cardizem and have increased to 60 mg p.o. every 6 hours. Would also add an ARB. 2. Mild left ventricular diastolic heart failure most likely. Shows normal left and systolic function. There is evidence of LV diastolic dysfunction. 3. severe pulmonary hypertension: By echocardiogram. As mentioned earlier we will treat the patient with Cardizem and losartan. 4. Chronic atrial fibrillation: Note the patient's corrected Nima Vasc score is 4. But the patient has a history of recent anemia most likely secondary to GI bleed. Hence we will hold off on chronic anticoagulation. 5. Diabetes mellitus type 2 insulin-dependent. 6. Hypothyroidism: Continue thyroid replacement. 7. Suspected obstructive sleep apnea: The patient is not a good historian is not clear if the patient did have a sleep study done if not she should have a sleep study and would benefit from CPAP/BiPAP. 8. Morbid obesity. Await echocardiogram. Medications reviewed. Medications adjusted. Medical decision making is of moderate complexity. Medical regimen management plan discussed with attending physician on the case. For 60-minute spent with patient more than 50% time spent direct patient care. Will follow.
[2019-08-08] MEDS: DILTIAZEM HCL 60 MG TABLET PO SCH ×4 (00:22→17:26)
[2019-08-08] MEDS: FUROSEMIDE INJ/PF 20 MG/2 ML SDV IV SCH ×3 (06:15→22:56)
[2019-08-08] MEDS: LEVOTHYROXINE SODIUM 0.025 MG TABLET PO SCH (06:16)
[2019-08-08] MEDS: PANTOPRAZOLE SODIUM 40 MG TABLET.DR PO SCH (06:16)
[2019-08-08] MEDS: INSULIN LISPRO 100 UNIT/ML 3 ML VIAL SUBCUT SCH ×4 (08:37→22:57)
[2019-08-08] MEDS: FERROUS SULFATE 325 MG TABLET PO SCH ×2 (08:43→17:26)
[2019-08-08] MEDS: HUM INSULIN NPH/REG INSULIN HM 100 UNIT/1 ML 3 ML SUBCUT SCH ×2 (08:43→16:50)
[2019-08-08] MEDS: LOSARTAN POTASSIUM 25 MG TABLET PO SCH ×2 (09:58→22:57)
[2019-08-08] MEDS: LISINOPRIL 5 MG TABLET PO SCH (09:58)
[2019-08-08] MEDS: ENOXAPARIN SODIUM INJ 40 MG/0.4 ML DISP.SYRIN SUBCUT SCH (09:58)
[2019-08-08] MEDS: POTASSIUM CHLORIDE 10 MEQ TABLET.ER PO SCH (09:58)
[2019-08-08] MEDS: NYSTATIN TOPICAL POWDER 15 GM TP SCH ×3 (09:59→17:27)
--- NOTE | 2019-08-08 12:29 | PDOC PROGRESS REPORT ---
Subjective Progress Note for:: 08/08/19 Subjective:: The patient appeared to be in decent spirits today. Nursing was trying to work on getting a better seal of her BiPAP mask. Intermittently there would be any air leak cheek area. Nursing reports that she still is unable to be off of BiPAP for any longer than 10 or 15 minutes. Reason For Visit: HEART FAILURE DIABETES MELLITUS MORBID OBESITY Physical Exam Vital Signs: Temp Pulse Resp BP Pulse Ox 97.9 F 88 16 106/59 L 95 08/08/19 12:00 08/08/19 12:00 08/08/19 12:00 08/08/19 12:00 08/08/19 12:00 Intake & Output 08/07/19 08/08/19 08/09/19 06:59 06:59 06:59 Intake Total 1140 615 Output Total 3725 2950 Balance -2585 -2335 Weight 173.8 kg 174.6 kg General appearance: PRESENT: cooperative, mild distress, morbidly obese, well- developed Head exam: PRESENT: atraumatic, normocephalic Eye exam: PRESENT: other - Seems to be developing some mild erythema from the BiPAP mask. Ear exam: PRESENT: normal external ear exam. ABSENT: bleeding, drainage Mouth exam: PRESENT: other - Very large neck with redundant tissue Respiratory exam: PRESENT: clear to auscultation chan - Bilaterally anteriorly. Examination of lateral and posterior lung marquez is extremely difficult due to body habitus, symmetrical, tachypnea. ABSENT: rales, rhonchi, wheezes Cardiovascular exam: PRESENT: RRR, +S1, +S2, other - Difficult to further auscultate due to loud sounds from BiPAP GI/Abdominal exam: PRESENT: soft, other - Large pendulous abdomen. ABSENT: guarding, tenderness Rectal exam: PRESENT: deferred Gentrourinary exam: PRESENT: indwelling catheter Extremities exam: PRESENT: pedal edema Neurological exam: PRESENT: alert, awake, oriented to person, oriented to place, oriented to situation, CN II-XII grossly intact Psychiatric exam: PRESENT: appropriate affect. ABSENT: agitated, anxious Focused psych exam: ABSENT: delusional, paranoid, restlessness Results Laboratory Results: 08/07/19 06:33 08/07/19 06:33 08/04/19 08/04/19 08/05/19 15:50 15:50 05:00 Creatine Kinase 31 CK-MB (CK-2) 0.98 Troponin I < 0.012 < 0.012 NT-Pro-B Natriuret Pep 1990 H Impressions: Chest X-Ray 08/04/19 15:38 IMPRESSION: Cardiomegaly and basilar predominant hazy opacities that obscure the contours of the hemidiaphragms and blunt the costophrenic sulci. Clinical correlation for signs and symptoms of volume overload/ CHF is recommended. Assessment and Plan - Diagnosis (1) Acute respiratory failure with hypoxia Is this a current diagnosis for this admission?: Yes Plan: 08/04/2019 Secondary to heart failure with underlying morbid obesity hypoventilation. Patient denies sleep apnea. BiPAP for now. Wean off of BiPAP as tolerated. 08/05/2019 Continues to need BiPAP almost continuously 08/06/2019 Still significantly dependent on BiPAP. New diagnosis of severe pulmonary hypertension. This may make it more difficult to resolve her respiratory failure. Continue BiPAP and current regimen. 08/07/2019 Still dependent on BiPAP. 08/08/2019 It is very important that the patient cannot be off of BiPAP for any longer than 15 minutes. She has not made any improvements over the last several days. I believe she has a very poor prognosis. (2) Congestive heart failure (CHF) Qualifiers: Heart failure type: right-sided Heart failure chronicity: acute on chronic Qualified Code(s): I50.813 - Acute on chronic right heart failure Is this a current diagnosis for this admission?: Yes Plan: 08/04/2019 I cannot find an old echocardiogram therefore I will order an echocardiogram. We will utilize diuretics. She is already on metoprolol for her fibrillation. Will monitor on telemetry and observe intake and output. 08/05/2019 Still not a significant negative fluid balance. I am going to keep the furosemide at 20 mg every 8 hours to try and avoid hypotension. Echocardiogram is pending. The patient will be seen by cardiology as well. 08/06/2019 Ejection fraction is 55% and diastolic function could not be assessed due to atrial fibrillation. She does have severe pulmonary hypertension and this is the likely instigating factor. We are maintaining a negative fluid balance. Continue current regimen. 08/07/2019 As noted above she has severe pulmonary hypertension. Dr. Copeland has made some adjustments in her medications. This does portend a poor prognosis. 08/08/2019 She has an approximate 6 L net negative fluid balance. This does not appear to be helping her respiratory failure unfortunately. Continue current medication regimen. (3) Pulmonary hypertension Is this a current diagnosis for this admission?: Yes Plan: 08/06/2019 Echocardiogram revealed severe pulmonary hypertension. Dr. Hickman did make some changes in her medication regimen. We will continue to monitor closely. 08/07/2019 Continue with new medication regimen. Prognosis is poor. (4) Hyperglycemia due to type 2 diabetes mellitus Qualifiers: Diabetes mellitus correction insulin use: with correction use Qualified Code(s): E11.65 - Type 2 diabetes mellitus with hyperglycemia; Z79.4 - termite treater (current) use of insulin Is this a current diagnosis for this admission?: Yes Plan: 08/04/2019 Consistent carbohydrate diet. Insulin therapy with Accu-Cheks before meals and at bedtime. 08/05/2019 Accu-Cheks are variable but for the most part under 200. Continue current r egimen. 08/06/2019 Continue current regimen. Reasonable control of glucose at this time. 08/07/2019 Accu-Cheks remain reasonably controlled. No changes at this time. 08/08/2019 As above (5) Longstanding persistent atrial fibrillation Is this a current diagnosis for this admission?: Yes Plan: 08/04/2019 Continue metoprolol. Monitor on telemetry. Will have cardiology consult and consider anticoagulation. 08/05/2019 No changes at this time 08/06/2019 Because of the new diagnosis of pulmonary hypertension cardiology has made some changes to the patient's regimen. Diltiazem has been increased and losartan has been added. 08/07/2019 Good rate control at this time. No changes. 08/08/2019 Continue current regimen (6) Hypothyroidism Qualifiers: Hypothyroidism type: unspecified Qualified Code(s): E03.9 - Hypothyroidism, unspecified Is this a current diagnosis for this admission?: Yes Plan: 08/04/2019 Continue levothyroxine 08/06/2019 No change (7) Iron deficiency anemia Qualifiers: Iron deficiency anemia type: unspecified iron deficiency Qualified Code(s): D50.9 - Iron deficiency anemia, unspecified Is this a current diagnosis for this admission?: Yes Plan: 08/04/2019 Continue iron supplement 08/06/2019 We will recheck CBC tomorrow. Continue iron supplement. 08/07/2019 Hemoglobin remained stable. 08/08/2019 Check labs every several days unless there is evidence of acute blood loss (8) Hyperkalemia Is this a current diagnosis for this admission?: Yes Plan: 08/04/2019 Potassium will slightly decrease with diuresis. Monitor electrolytes. 08/05/2019 Potassium normal. Need to monitor for decreased potassium now that she is on furosemide. 08/06/2019 Continue potassium supplement. Will recheck electrolytes tomorrow. 08/07/2019 Normokalemic. No changes. 08/08/2019 Check labs every several days (9) Morbid obesity Is this a current diagnosis for this admission?: Yes Plan: 08/04/2019 BMI is 63.8. This certainly adds to the comorbidities. Likely a component of obesity hypoventilation and possible sleep apnea. Morbid obesity also puts strain on the heart and his diet for diabetes. Also contributes to the chronic lower extremity edema and chronic thrombophlebitis. 08/07/2019 Unfortunately this only compounds her problems. No realistic chance of any significant weight loss at this time. (10) Leg edema Is this a current diagnosis for this admission?: Yes Plan: 08/04/2019 Chronic lower extremity edema. Erythema is likely due to chronic superficial thrombophlebitis. Cobblestoning of the skin indicates longstanding severe lymphedema. Try to elevate extremities when possible 08/05/2019 Continue as above 08/07/2019 Elevate when possible. Continue diuresis. 08/08/2019 Remains in net negative fluid balance. - Plan Summary Summary: 08/05/2019 Patient is notoriously slow to be active. As soon is she is not BiPAP dependent Physical therapy begin working with her in anticipation of discharge. - Time Time Spent with patient: Less than 15 minutes Medications reviewed and adjusted accordingly: Yes Anticipated discharge: Other - Uncertain at this time
--- NOTE | 2019-08-08 13:07 | Progress Note ---
Provider Note Provider Note: CARDIOLOGY PROGRESS NOTE by Dr. Chucky Copeland on 08/08/2019. SUBJECTIVE: The patient is still on the BiPAP. She states she is marginally better with respiratory shortness of breath. She continues to be in atrial fibrillation. There were ventricular response is controlled. She does have orthopnea. Her shortness of breath is marginally improved. She has no chest pain or discomfort. There is no bleeding on Eliquis.. There is no TIA CVA symptoms. There is no bleeding on chronic anticoagulation. PHYSICAL EXAMINATION: The patient is morbidly obese. She is well-groomed. Selected Entries 08/08/19 08/08/19 10:51 12:27 Temperature Oral Source Pulse Rate 87 Respiratory 16 Rate Blood Pressure 106/59 L Blood Pressure 74 Mean BP Location Right Arm BP Position Supine O2 Sat by Pulse 95 Oximetry Fraction of 32 Inspired Oxygen (FIO2) Oxygen Flow 4 Rate Oxygen Delivery Bipap Method HEAD: Is atraumatic normocephalic. EYES: Pupils are equal round regular reactive to light accommodation. Extraocular movements are normal. THERE IS NO CONJUNCTIVAL PALLOR. THERE IS NO SCLERAL ICTERUS. EARS: TYMPANIC MEMBRANES ARE INTACT. EXTERNAL AUDITORY CANALS ARE CLEAR. NOSE: THERE IS NO DEVIATED NASAL SEPTUM. THERE IS NO INFLAMMATION OF THE NASAL MUCOUS MEMBRANE. MOUTH: MUCOUS MEMBRANES OF THE MOUTH ARE MOIST. TONGUE IS MOIST. THERE IS NO ULCERS. THROAT: THERE IS NO REDNESS OF THE OROPHARYNX. THERE IS NO EXUDATES. SKIN: THERE IS NO SKIN RASHES THERE IS NO PETECHIA OR ECCHYMOSIS THERE IS NO SKIN LESIONS. There is been just stasis dermatitis of the lower extremities. NECK: Supple. There is JVD present. Carotids are equal there is no bruit. There is no lymphadenopathy there is no goiter. LUNGS: Shows decreased breath sounds bilaterally. There is a few fine bibasilar rales of left heart failure. There is no rhonchi or wheezing. HEART: S1-S2 is heard. S1 is variable intensity. There is no S3 gallop. There is no S4 gallop. There is systolic murmur at the left sternal border and the apex there is no rub. ABDOMEN: Is obese nontender there is no hepatosplenomegaly. There is no masses or tender areas. There is no rebound guarding rigidity. Abdomen is obese. EXTREMITIES: Femorals are deep. Femorals are difficult to palpate. Leg pulses difficult to palpate. There is no femoral bruits. There is 1+ to 2- bilateral pedal edema with venous stasis dermatitis changes. There is no DVT or cellulitis. There is no calf tenderness. There is no cyanosis or clubbing. WELLNESS NURSE: The patient is conscious awake alert oriented x3 with no focal deficits. PSYCHIATRIC: The patient judgment site are intact her affect is normal. Labs- All tests 24 hr 08/08/19 08/08/19 08/08/19 06:11 10:49 15:34 POC Glucose 148 H 167 H 140 H 08/08/19 22:09 POC Glucose 150 H Chest X-Ray 08/04/19 15:38 IMPRESSION: Cardiomegaly and basilar predominant hazy opacities that obscure the contours of the hemidiaphragms and blunt the costophrenic sulci. Clinical correlation for signs and symptoms of volume overload/ CHF is recommended. IMPRESSION/RECOMMENDATION: 1. Acute on chronic right ventricular systolic heart failure. This is most likely secondary to significant pulmonary hypertension. Would recommend stopping the patient's metoprolol. Started the patient on Cardizem and have increased to 60 mg p.o. every 6 hours. Would also add an ARB. We will change the Cardizem to long-acting preparation in the form of Cardizem CD 120 mg p.o. twice daily. 2. Mild left ventricular diastolic heart failure most likely. Shows normal left and systolic function. There is difficulty evaluating evidence of LV diastolic dysfunction. 3. severe pulmonary hypertension: By echocardiogram. As mentioned earlier we will treat the patient with Cardizem and losartan. 4. Chronic atrial fibrillation: Note the patient's corrected Nima Vasc score is 4. But the patient has a history of recent anemia most likely secondary to GI bleed. Hence we will hold off on chronic anticoagulation. 5. Diabetes mellitus type 2 insulin-dependent. 6. Hypothyroidism: Continue thyroid replacement. 7. Suspected obstructive sleep apnea: The patient is not a good historian is not clear if the patient did have a sleep study done if not she should have a sleep study and would benefit from CPAP/BiPAP. 8. Morbid obesity. Medications reviewed. Medications changed. Medical decision making is of high complexity. 40 minutes spent with patient with more than 50% of time spent in direct patient care medical regimen and management plan discussed with attending provider on the case..
[2019-08-08] MEDS: MELATONIN 3 MG TABLET PO SCH (22:56)
[2019-08-08] MEDS: ASPIRIN 81 MG TABLET, ENT COATED PO SCH (22:56)
[2019-08-09] MEDS: PANTOPRAZOLE SODIUM 40 MG TABLET.DR PO SCH (05:20)
[2019-08-09] MEDS: LEVOTHYROXINE SODIUM 0.025 MG TABLET PO SCH (05:20)
[2019-08-09] MEDS: FUROSEMIDE INJ/PF 20 MG/2 ML SDV IV SCH ×3 (05:20→21:54)
[2019-08-09] MEDS: INSULIN LISPRO 100 UNIT/ML 3 ML VIAL SUBCUT SCH ×4 (07:45→21:46)
[2019-08-09] MEDS: HUM INSULIN NPH/REG INSULIN HM 100 UNIT/1 ML 3 ML SUBCUT SCH ×2 (09:26→18:13)
[2019-08-09] MEDS: ENOXAPARIN SODIUM INJ 40 MG/0.4 ML DISP.SYRIN SUBCUT SCH (09:27)
[2019-08-09] MEDS: FERROUS SULFATE 325 MG TABLET PO SCH ×2 (09:27→18:16)
[2019-08-09] MEDS: POTASSIUM CHLORIDE 10 MEQ TABLET.ER PO SCH (09:28)
[2019-08-09] MEDS: LISINOPRIL 5 MG TABLET PO SCH (09:28)
[2019-08-09] MEDS: DILTIAZEM HCL 120 MG CAP.SR.24H PO SCH ×2 (09:28→21:54)
[2019-08-09] MEDS: LOSARTAN POTASSIUM 25 MG TABLET PO SCH ×2 (09:28→21:54)
[2019-08-09] MEDS: NYSTATIN TOPICAL POWDER 15 GM TP SCH ×3 (09:46→18:28)
--- NOTE | 2019-08-09 15:43 | PDOC PROGRESS REPORT ---
Subjective Progress Note for:: 08/09/19 Subjective:: The patient is resting in bed. She is still on BiPAP. The nurse reports she is only been off for a total of approximately 60 minutes today. She is still experiencing air leak BiPAP mask. Reason For Visit: HEART FAILURE DIABETES MELLITUS MORBID OBESITY Physical Exam Vital Signs: Temp Pulse Resp BP Pulse Ox 97.7 F 85 21 H 111/52 L 98 08/09/19 10:43 08/09/19 14:00 08/09/19 10:43 08/09/19 10:43 08/09/19 10:43 Intake & Output 08/08/19 08/09/19 08/10/19 06:59 06:59 06:59 Intake Total 615 500 Output Total 2950 2100 1400 Balance -2335 -1600 -1400 Weight 174.6 kg 170 kg General appearance: PRESENT: cooperative, mild distress, morbidly obese Head exam: PRESENT: atraumatic, normocephalic Respiratory exam: PRESENT: clear to auscultation chan - Anteriorly., decreased breath sounds - Posteriorly mostly due to body habitus and difficulty with auscultation due to the BiPAP machine., symmetrical, tachypnea. ABSENT: rhonchi, wheezes Cardiovascular exam: PRESENT: RRR, +S1, +S2 GI/Abdominal exam: PRESENT: hypoactive bowel sounds, soft, other - Pendulous. ABSENT: guarding, tenderness Rectal exam: PRESENT: deferred Extremities exam: PRESENT: +2 edema Neurological exam: PRESENT: alert, awake, oriented to person, oriented to place, oriented to situation Psychiatric exam: PRESENT: flat affect. ABSENT: agitated, anxious Focused psych exam: ABSENT: delusional, paranoid, restlessness Skin exam: PRESENT: erythema - Beginning to have erythema around the BiPAP mask Results Laboratory Results: 08/07/19 06:33 08/07/19 06:33 08/04/19 08/04/19 08/05/19 15:50 15:50 05:00 Creatine Kinase 31 CK-MB (CK-2) 0.98 Troponin I < 0.012 < 0.012 NT-Pro-B Natriuret Pep 1990 H Impressions: Chest X-Ray 08/04/19 15:38 IMPRESSION: Cardiomegaly and basilar predominant hazy opacities that obscure the contours of the hemidiaphragms and blunt the costophrenic sulci. Clinical correlation for signs and symptoms of volume overload/ CHF is recommended. Assessment and Plan - Diagnosis (1) Acute respiratory failure with hypoxia Is this a current diagnosis for this admission?: Yes Plan: 08/04/2019 Secondary to heart failure with underlying morbid obesity hypoventilation. Patient denies sleep apnea. BiPAP for now. Wean off of BiPAP as tolerated. 08/05/2019 Continues to need BiPAP almost continuously 08/06/2019 Still significantly dependent on BiPAP. New diagnosis of severe pulmonary hypertension. This may make it more difficult to resolve her respiratory failu re. Continue BiPAP and current regimen. 08/07/2019 Still dependent on BiPAP. 08/08/2019 It is very important that the patient cannot be off of BiPAP for any longer than 15 minutes. She has not made any improvements over the last several days. I believe she has a very poor prognosis. 08/09/2019 Unable to wean from BiPAP. I will ask pulmonology to see the patient. To the patient that if we cannot get her off of BiPAP she is going to (2) Congestive heart failure (CHF) Qualifiers: Heart failure type: right-sided Heart failure chronicity: acute on chronic Qualified Code(s): I50.813 - Acute on chronic right heart failure Is this a current diagnosis for this admission?: Yes Plan: 08/04/2019 I cannot find an old echocardiogram therefore I will order an echocardiogram. We will utilize diuretics. She is already on metoprolol for her fibrillation. Will monitor on telemetry and observe intake and output. 08/05/2019 Still not a significant negative fluid balance. I am going to keep the furosemide at 20 mg every 8 hours to try and avoid hypotension. Echocardiogram is pending. The patient will be seen by cardiology as well. 08/06/2019 Ejection fraction is 55% and diastolic function could not be assessed due to atrial fibrillation. She does have severe pulmonary hypertension and this is the likely instigating factor. We are maintaining a negative fluid balance. Continue current regimen. 08/07/2019 As noted above she has severe pulmonary hypertension. Dr. Copeland has made some adjustments in her medications. This does portend a poor prognosis. 08/08/2019 She has an approximate 6 L net negative fluid balance. This does not appear to be helping her respiratory failure unfortunately. Continue current medication regimen. 08/09/2019 Almost 11 L net negative balance. Continue current regimen. (3) Pulmonary hypertension Is this a current diagnosis for this admission?: Yes Plan: 08/06/2019 Echocardiogram revealed severe pulmonary hypertension. Dr. Hickman did make some changes in her medication regimen. We will continue to monitor closely. 08/07/2019 Continue with new medication regimen. Prognosis is poor. 08/09/2019 I will ask pulmonology to see the patient. If we cannot taper off of BiPAP patient will not survive (4) Hyperglycemia due to type 2 diabetes mellitus Qualifiers: Diabetes mellitus custodial insulin use: with intermodal truck driver use Qualified Code(s): E11.65 - Type 2 diabetes mellitus with hyperglycemia; Z79.4 - terminal gauger supervisor (current) use of insulin Is this a current diagnosis for this admission?: Yes Plan: 08/04/2019 Consistent carbohydrate diet. Insulin therapy with Accu-Cheks before meals and at bedtime. 08/05/2019 Accu-Cheks are variable but for the most part under 200. Continue current regimen. 08/06/2019 Continue current regimen. Reasonable control of glucose at this time. 08/07/2019 Accu-Cheks remain reasonably controlled. No changes at this time. 08/08/2019 As above 08/09/2019 Now getting occasional Accu-Cheks under 100. Appetite is poor. We may need to adjust therapy. (5) Longstanding persistent atrial fibrillation Is this a current diagnosis for this admission?: Yes Plan: 08/04/2019 Continue metoprolol. Monitor on telemetry. Will have cardiology consult and consider anticoagulation. 08/05/2019 No changes at this time 08/06/2019 Because of the new diagnosis of pulmonary hypertension cardiology has made some changes to the patient's regimen. Diltiazem has been increased and losartan has been added. 08/07/2019 Good rate control at this time. No changes. 08/08/2019 Continue current regimen 08/09/2019 Good control on current regimen (6) Hypothyroidism Qualifiers: Hypothyroidism type: unspecified Qualified Code(s): E03.9 - Hypothyroidism, unspecified Is this a current diagnosis for this admission?: Yes Plan: 08/04/2019 Continue levothyroxine 08/06/2019 No change (7) Iron deficiency anemia Qualifiers: Iron deficiency anemia type: unspecified iron deficiency Qualified Code(s): D50.9 - Iron deficiency anemia, unspecified Is this a current diagnosis for this admission?: Yes Plan: 08/04/2019 Continue iron supplement 08/06/2019 We will recheck CBC tomorrow. Continue iron supplement. 08/07/2019 Hemoglobin remained stable. 08/08/2019 Check labs every several days unless there is evidence of acute blood loss (8) Hyperkalemia Is this a current diagnosis for this admission?: Yes Plan: 08/04/2019 Potassium will slightly decrease with diuresis. Monitor electrolytes. 08/05/2019 Potassium normal. Need to monitor for decreased potassium now that she is on furosemide. 08/06/2019 Continue potassium supplement. Will recheck electrolytes tomorrow. 08/07/2019 Normokalemic. No changes. 08/08/2019 Check labs every several days 08/09/2019 We will check labs tomorrow. Try to avoid excessive testing. (9) Morbid obesity Is this a current diagnosis for this admission?: Yes Plan: 08/04/2019 BMI is 63.8. This certainly adds to the comorbidities. Likely a component of obesity hypoventilation and possible sleep apnea. Morbid obesity also puts strain on the heart and his diet for diabetes. Also contributes to the chronic lower extremity edema and chronic thrombophlebitis. 08/07/2019 Unfortunately this only compounds her problems. No realistic chance of any significant weight loss at this time. (10) Leg edema Is this a current diagnosis for this admission?: Yes Plan: 08/04/2019 Chronic lower extremity edema. Erythema is likely due to chronic superficial thrombophlebitis. Cobblestoning of the skin indicates longstanding severe lymphedema. Try to elevate extremities when possible 08/05/2019 Continue as above 08/07/2019 Elevate when possible. Continue diuresis. 08/08/2019 Remains in net negative fluid balance. 08/09/2019 Improving with diuresis and she is not putting her legs in a dependent position. - Plan Summary Summary: 08/05/2019 Patient is notoriously slow to be active. As soon is she is not BiPAP dependent Physical therapy begin working with her in anticipation of discharge. - Time Time Spent with patient: 15-24 minutes Medications reviewed and adjusted accordingly: Yes
--- NOTE | 2019-08-09 16:58 | Progress Note ---
Provider Note Provider Note: CARDIOLOGY PROGRESS NOTE by Dr. Renee Copeland on 08/09/2019. SUBJECTIVE: The patient continues to use BiPAP. She has orthopnea. She states shortness of breath is improved slightly. There is no PND. There is no chest pain or discomfort. She remains in atrial fibrillation with controlled ventricular response. There is no ventricular arrhythmias seen on the monitor. There is no bleeding on Eliquis. There is no TIA CVA symptoms. PHYSICAL EXAMINATION: The patient is morbidly obese. At present in no acute distress patient is wearing the BiPAP. Selected Entries 08/09/19 08:00 Temperature 98.4 F Temperature Axillary Source Pulse Rate 90 Respiratory 18 Rate Blood Pressure 127/63 H [Left Upper Arm ] Blood Pressure 84 Mean [Left Upper Arm] Blood Pressure Supine Position [Left Upper Arm] O2 Sat by Pulse 94 Oximetry Oxygen Delivery Bi-pap Method ( includes room air) Percent of 30 Oxygen HEAD: Is atraumatic normocephalic. EYES: Pupils are equal round regular reactive to light accommodation. Extraocular movements are normal. THERE IS NO CONJUNCTIVAL PALLOR. THERE IS NO SCLERAL ICTERUS. EARS: TYMPANIC MEMBRANES ARE INTACT. EXTERNAL AUDITORY CANALS ARE CLEAR. NOSE: THERE IS NO DEVIATED NASAL SEPTUM. THERE IS NO INFLAMMATION OF THE NASAL MUCOUS MEMBRANE. MOUTH: MUCOUS MEMBRANES OF THE MOUTH ARE MOIST. TONGUE IS MOIST. THERE IS NO ULCERS. THROAT: THERE IS NO REDNESS OF THE OROPHARYNX. THERE IS NO EXUDATES. SKIN: THE RE IS NO SKIN RASHES THERE IS NO PETECHIA OR ECCHYMOSIS THERE IS NO SKIN LESIONS. There is been just stasis dermatitis of the lower extremities. NECK: Supple. There is JVD present. Carotids are equal there is no bruit. There is no lymphadenopathy there is no goiter. LUNGS: Shows decreased breath sounds bilaterally. There is a few fine bibasilar rales of left heart failure. There is no rhonchi or wheezing. HEART: S1-S2 is heard. S1 is variable intensity. There is no S3 gallop. There is no S4 gallop. There is systolic murmur at the left sternal border and the apex there is no rub. ABDOMEN: Is obese nontender there is no hepatosplenomegaly. There is no masses or tender areas. There is no rebound guarding rigidity. Abdomen is obese. EXTREMITIES: Femorals are deep. Femorals are difficult to palpate. Leg pulses difficult to palpate. There is no femoral bruits. There is 1+ to 2- bilateral pedal edema with venous stasis dermatitis changes. There is no DVT or cellulitis. There is no calf tenderness. There is no cyanosis or clubbing. MARKING MACHINE TENDER: The patient is conscious awake alert oriented x3 with no focal deficits. PSYCHIATRIC: The patient judgment site are intact her affect is normal. Labs- All tests 24 hr 08/06/19 08/08/19 08/09/19 15:03 22:09 06:05 POC Glucose 150 H 124 H Double Strand DNA Ab <1 08/09/19 08/09/19 10:45 16:13 POC Glucose 148 H 74 Double Strand DNA Ab Chest X-Ray 08/04/19 15:38 IMPRESSION: Cardiomegaly and basilar predominant hazy opacities that obscure the contours of the hemidiaphragms and blunt the costophrenic sulci. Clinical correlation for signs and symptoms of volume overload/ CHF is recommended. IMPRESSION/RECOMMENDATION: 1. Acute on chronic right ventricular systolic heart failure. This is most likely secondary to significant pulmonary hypertension. Would recommend stopping the patient's metoprolol. Started the patient on Cardizem and have increased to 60 mg p.o. every 6 hours. Would also add an ARB. We will change the Cardizem to long-acting preparation in the form of Cardizem CD 120 mg p.o. twice daily. 2. Mild left ventricular diastolic heart failure most likely. Shows normal left and systolic function. There is difficulty evaluating evidence of LV diastolic dysfunction. 3. severe pulmonary hypertension: By echocardiogram. As mentioned earlier we will treat the patient with Cardizem and losartan. 4. Chronic atrial fibrillation: Note the patient's corrected Nima Vasc score is 4. But the patient has a history of recent anemia most likely secondary to GI bleed. Hence we will hold off on chronic anticoagulation. 5. Diabetes mellitus type 2 insulin-dependent. 6. Hypothyroidism: Continue thyroid replacement. 7. Suspected obstructive sleep apnea: The patient is not a good historian is not clear if the patient did have a sleep study done if not she should have a sleep study and would benefit from CPAP/BiPAP. 8. Morbid obesity. Medications reviewed. Medications changed. Medical decision making is of high complexity. 40 minutes spent with patient with more than 50% of time spent in direct patient care medical regimen and management plan discussed with attending
[2019-08-09] MEDS: MELATONIN 3 MG TABLET PO SCH (21:54)
[2019-08-09] MEDS: ASPIRIN 81 MG TABLET, ENT COATED PO SCH (21:54)
[2019-08-10] MEDS: LEVOTHYROXINE SODIUM 0.025 MG TABLET PO SCH (05:12)
[2019-08-10] MEDS: PANTOPRAZOLE SODIUM 40 MG TABLET.DR PO SCH (05:12)
[2019-08-10] MEDS: FUROSEMIDE INJ/PF 20 MG/2 ML SDV IV SCH ×3 (05:12→22:06)
[2019-08-10] MEDS: INSULIN LISPRO 100 UNIT/ML 3 ML VIAL SUBCUT SCH ×4 (07:44→22:07)
[2019-08-10] MEDS: HUM INSULIN NPH/REG INSULIN HM 100 UNIT/1 ML 3 ML SUBCUT SCH (07:47)
[2019-08-10 09:58] LABS: ABSOLUTE BASOPHILS # (AUTO) 0.1 10^3/uL (0.0-0.2); ABSOLUTE EOSINOPHILS # (AUTO) 0.1 10^3/uL (0.0-0.6); ABSOLUTE MONOCYTES (AUTO) 0.6 10^3/uL (0.1-1.4); ABSOLUTE NEUT (AUTO) 7.1 10^3/uL (1.7-8.2); BASOPHILS % (AUTO) 0.8 % (0-2); EOSINOPHILS % (AUTO) 1.6 % (0-6); HEMATOCRIT 35.2 % (36.0-47.0); HEMOGLOBIN 11.3 g/dL (12.0-15.5); LYMPHOCYTES % (AUTO) 11.4 % (13-45); MEAN CORPUSCULAR HEMOGLOBIN 26.5 pg (27.0-33.4); MEAN CORPUSCULAR HGB CONC 32.1 g/dL (32.0-36.0); MEAN CORPUSCULAR VOLUME 83 fl (80-97); MONOCYTES % (AUTO) 6.6 % (3-13); PLATELET COUNT 230 10^3/uL (150-450); RED BLOOD COUNT 4.27 10^6/uL (3.72-5.28); RED CELL DISTRIBUTION WIDTH 31.2 % (11.5-14.0); SEGMENTED NEUTROPHILS % (AUTO) 79.6 % (42-78); TOTAL CELLS COUNTED % (AUTO) 100 %; WHITE BLOOD COUNT 8.9 10^3/uL (4.0-10.5)
[2019-08-10 10:13] LABS: ANION GAP 6 (5-19); BLOOD UREA NITROGEN 16 mg/dL (7-20); CARBON DIOXIDE 37 mmol/L (22-30); CHLORIDE 96 mmol/L (98-107); GLUCOSE 100 mg/dL (75-110); PHOSPHORUS 3.9 mg/dL (2.5-4.5); POTASSIUM 4.3 mmol/L (3.6-5.0)
[2019-08-10 10:45] LABS: ANISOCYTOSIS 4+; HYPOCHROMASIA SLIGHT; POIKILOCYTOSIS SLIGHT; POLYCHROMASIA SLIGHT; STOMATOCYTES SLIGHT
[2019-08-10 10:46] LABS: BURR CELLS SLIGHT; PLATELET COMMENT ADEQUATE
--- NOTE | 2019-08-10 11:19 | PDOC PROGRESS REPORT ---
Subjective Progress Note for:: 08/10/19 Subjective:: The patient's sons have been calling. Evidently after my discussion with patient yesterday she was reporting to the family that she only had several hours to live. Clearly this was not the appropriate interpretation of the discussion that we had. She is still tachypneic on BiPAP. Reason For Visit: HEART FAILURE DIABETES MELLITUS MORBID OBESITY Physical Exam Vital Signs: Temp Pulse Resp BP Pulse Ox 97.7 F 433 H 35 H 113/56 L 97 08/10/19 00:11 08/10/19 07:00 08/10/19 08:18 08/10/19 00:11 08/10/19 08:18 Intake & Output 08/09/19 08/10/19 08/11/19 06:59 06:59 06:59 Intake Total 500 Output Total 2100 4400 Balance -1600 -4400 Weight 170 kg 172.3 kg General appearance: PRESENT: cooperative, mild distress, morbidly obese Respiratory exam: PRESENT: clear to auscultation chna, prolonged expiratory phas, symmetrical, tachypnea. ABSENT: rales, rhonchi, wheezes Cardiovascular exam: PRESENT: RRR, +S1, +S2 GI/Abdominal exam: PRESENT: normal bowel sounds, soft. ABSENT: distended - Pendulous abdomen, tenderness Rectal exam: PRESENT: deferred Gentrourinary exam: PRESENT: indwelling catheter Extremities exam: PRESENT: +2 edema Neurological exam: PRESENT: alert, awake, oriented to person, oriented to place, oriented to situation Psychiatric exam: ABSENT: agitated, anxious Results Laboratory Results: 08/10/19 09:20 08/10/19 09:20 08/10/19 08/10/19 09:20 09:20 WBC 8.9 RBC 4.27 Hgb 11.3 L Hct 35.2 L MCV 83 MCH 26.5 L MCHC 32.1 RDW 31.2 H Plt Count 230 Seg Neutrophils % 79.6 H Sodium 138.5 Potassium 4.3 Chloride 96 L Carbon Dioxide 37 H Anion Gap 6 BUN 16 Creatinine 0.84 Est GFR ( Amer) > 60 Glucose 100 Calcium 9.0 Phosphorus 3.9 Magnesium 1.5 L 08/04/19 08/04/19 08/05/19 15:50 15:50 05:00 Creatine Kinase 31 CK-MB (CK-2) 0.98 Troponin I < 0.012 < 0.012 NT-Pro-B Natriuret Pep 1990 H Impressions: Chest X-Ray 08/04/19 15:38 IMPRESSION: Cardiomegaly and basilar predominant hazy opacities that obscure the contours of the hemidiaphragms and blunt the costophrenic sulci. Clinical correlation for signs and symptoms of volume overload/ CHF is recommended. Assessment and Plan - Diagnosis (1) Acute respiratory failure with hypoxia Is this a current diagnosis for this admission?: Yes Plan: 08/04/2019 Secondary to heart failure with underlying morbid obesity hypoventilation. Patient denies sleep apnea. BiPAP for now. Wean off of BiPAP as tolerated. 08/05/2019 Continues to need BiPAP almost continuously 08/06/2019 Still significantly dependent on BiPAP. New diagnosis of severe pulmonary hypertension. This may make it more difficult to resolve her respiratory failure. Continue BiPAP and current regimen. 08/07/2019 Still dependent on BiPAP. 08/08/2019 It is very important that the patient cannot be off of BiPAP for any longer than 15 minutes. She has not made any improvements over the last several days. I believe she has a very poor prognosis. 08/09/2019 Unable to wean from BiPAP. I will ask pulmonology to see the patient. To the patient that if we cannot get her off of BiPAP she is going to 08/10/2019 I discussed the case with pulmonology. They will be seeing the patient. We will discuss potential interventions versus the possibility of no meaningful change in treatment (2) Congestive heart failure (CHF) Qualifiers: Heart failure type: right-sided Heart failure chronicity: acute on chronic Qualified Code(s): I50.813 - Acute on chronic right heart failure Is this a current diagnosis for this admission?: Yes Plan: 08/04/2019 I cannot find an old echocardiogram therefore I will order an echocardiogram. We will utilize diuretics. She is already on metoprolol for her fibrillation. Will monitor on telemetry and observe intake and output. 08/05/2019 Still not a significant negative fluid balance. I am going to keep the furosemide at 20 mg every 8 hours to try and avoid hypotension. Echocardiogram is pending. The patient will be seen by cardiology as well. 08/06/2019 Ejection fraction is 55% and diastolic function could not be assessed due to atrial fibrillation. She does have severe pulmonary hypertension and this is the likely instigating factor. We are maintaining a negative fluid balance. Continue current regimen. 08/07/2019 As noted above she has severe pulmonary hypertension. Dr. Copeland has made some adjustments in her medications. This does portend a poor prognosis. 08/08/2019 She has an approximate 6 L net negative fluid balance. This does not appear to be helping her respiratory failure unfortunately. Continue current medication regimen. 08/09/2019 Almost 11 L net negative balance. Continue current regimen. 08/10/2019 Continue current medication regimen (3) Pulmonary hypertension Is this a current diagnosis for this admission?: Yes Plan: 08/06/2019 Echocardiogram revealed severe pulmonary hypertension. Dr. Hickman did make some changes in her medication regimen. We will continue to monitor closely. 08/07/2019 Continue with new medication regimen. Prognosis is poor. 08/09/2019 I will ask pulmonology to see the patient. If we cannot taper off of BiPAP patient will not survive 08/10/2019 Pulmonology will see the patient tomorrow. We did review the case over the phone today. (4) Hyperglycemia due to type 2 diabetes mellitus Qualifiers: Diabetes mellitus terminal computer operator insulin use: with terminal computer operator use Qualified Cod e(s): E11.65 - Type 2 diabetes mellitus with hyperglycemia; Z79.4 - termination clerk (current) use of insulin Is this a current diagnosis for this admission?: Yes Plan: 08/04/2019 Consistent carbohydrate diet. Insulin therapy with Accu-Cheks before meals and at bedtime. 08/05/2019 Accu-Cheks are variable but for the most part under 200. Continue current regimen. 08/06/2019 Continue current regimen. Reasonable control of glucose at this time. 08/07/2019 Accu-Cheks remain reasonably controlled. No changes at this time. 08/08/2019 As above 08/09/2019 Now getting occasional Accu-Cheks under 100. Appetite is poor. We may need to adjust therapy. 08/10/2019 Long-acting insulin has been discontinued. With the patient's appetite being so poor we will use sliding scale alone. (5) Longstanding persistent atrial fibrillation Is this a current diagnosis for this admission?: Yes Plan: 08/04/2019 Continue metoprolol. Monitor on telemetry. Will have cardiology consult and consider anticoagulation. 08/05/2019 No changes at this time 08/06/2019 Because of the new diagnosis of pulmonary hypertension cardiology has made some changes to the patient's regimen. Diltiazem has been increased and losartan has been added. 08/07/2019 Good rate control at this time. No changes. 08/08/2019 Continue current regimen 08/09/2019 Good control on current regimen 08/10/2019 No changes to above regimen (6) Hypothyroidism Qualifiers: Hypothyroidism type: unspecified Qualified Code(s): E03.9 - Hypothyroidism, unspecified Is this a current diagnosis for this admission?: Yes Plan: 08/04/2019 Continue levothyroxine 08/06/2019 No change (7) Iron deficiency anemia Qualifiers: Iron deficiency anemia type: unspecified iron deficiency Qualified Code(s): D50.9 - Iron deficiency anemia, unspecified Is this a current diagnosis for this admission?: Yes Plan: 08/04/2019 Continue iron supplement 08/06/2019 We will recheck CBC tomorrow. Continue iron supplement. 08/07/2019 Hemoglobin remained stable. 08/08/2019 Check labs every several days unless there is evidence of acute blood loss (8) Hyperkalemia Is this a current diagnosis for this admission?: Yes Plan: 08/04/2019 Potassium will slightly decrease with diuresis. Monitor electrolytes. 08/05/2019 Potassium normal. Need to monitor for decreased potassium now that she is on furosemide. 08/06/2019 Continue potassium supplement. Will recheck electrolytes tomorrow. 08/07/2019 Normokalemic. No changes. 08/08/2019 Check labs every several days 08/09/2019 We will check labs tomorrow. Try to avoid excessive testing. 08/10/2019 Normokalemic today (9) Morbid obesity Is this a current diagnosis for this admission?: Yes Plan: 08/04/2019 BMI is 63.8. This certainly adds to the comorbidities. Likely a component of obesity hypoventilation and possible sleep apnea. Morbid obesity also puts strain on the heart and his diet for diabetes. Also contributes to the chronic lower extremity edema and chronic thrombophlebitis. 08/07/2019 Unfortunately this only compounds her problems. No realistic chance of any significant weight loss at this time. (10) Leg edema Is this a current diagnosis for this admission?: Yes Plan: 08/04/2019 Chronic lower extremity edema. Erythema is likely due to chronic superficial thrombophlebitis. Cobblestoning of the skin indicates longstanding severe lymp hedema. Try to elevate extremities when possible 08/05/2019 Continue as above 08/07/2019 Elevate when possible. Continue diuresis. 08/08/2019 Remains in net negative fluid balance. 08/09/2019 Improving with diuresis and she is not putting her legs in a dependent position. (11) Hypomagnesemia Is this a current diagnosis for this admission?: Yes Plan: 08/10/2019 Magnesium slightly low. Supplement magnesium. - Plan Summary Summary: 08/05/2019 Patient is notoriously slow to be active. As soon is she is not BiPAP dependent Physical therapy begin working with her in anticipation of discharge. - Time Time Spent with patient: Less than 15 minutes Medications reviewed and adjusted accordingly: Yes
[2019-08-10] MEDS: FERROUS SULFATE 325 MG TABLET PO SCH ×2 (11:36→18:21)
[2019-08-10] MEDS: DILTIAZEM HCL 120 MG CAP.SR.24H PO SCH ×2 (11:36→22:06)
[2019-08-10] MEDS: ENOXAPARIN SODIUM INJ 40 MG/0.4 ML DISP.SYRIN SUBCUT SCH (11:36)
[2019-08-10] MEDS: LISINOPRIL 5 MG TABLET PO SCH (11:36)
[2019-08-10] MEDS: POTASSIUM CHLORIDE 10 MEQ TABLET.ER PO SCH (11:37)
[2019-08-10] MEDS: LOSARTAN POTASSIUM 25 MG TABLET PO SCH ×2 (11:37→22:07)
[2019-08-10] MEDS: NYSTATIN TOPICAL POWDER 15 GM TP SCH ×3 (11:44→18:20)
--- NOTE | 2019-08-10 17:12 | ADVANCED CARE ---
- Diagnosis (1) Acute respiratory failure with hypoxia Diagnosis Current: Yes (2) Congestive heart failure (CHF) Diagnosis Current: Yes (3) Pulmonary hypertension Diagnosis Current: Yes (4) Hyperglycemia due to type 2 diabetes mellitus Diagnosis Current: Yes (5) Longstanding persistent atrial fibrillation Diagnosis Current: Yes (6) Hypothyroidism Diagnosis Current: Yes (7) Iron deficiency anemia Diagnosis Current: Yes (8) Hyperkalemia Diagnosis Current: Yes (9) Morbid obesity Diagnosis Current: Yes (10) Leg edema Diagnosis Current: Yes Attendance: The discussion was partly held with the patient at bedside and due to COVID restrictions the remainder was held with the patient's 2 sons Juan and Shane in the hospital [facility]. Resuscitation Status: Full Code Discussion: The patient has severe pulmonary hypertension with underlying COPD and heart failure. Due to her morbid obesity and obesity hypoventilation syndrome she has been BiPAP dependent since admission. She is able to tolerate less than 90 minutes off the BiPAP cumulatively for the whole day. I did review the patient's prognosis with her. I did tell her that in my opinion she was not going to be able to get off the BiPAP which in fact would be a terminal issue. Unfortunately she misinterpreted that and called her family and told them that she had 3 hours to live. This prompted calls from her sons. I met with them in the hospital lobby. We reviewed the patient's condition and work-up during this hospitalization. We then reviewed her previous hospitalization and the fact that she has been declining over the last several months. I informed them that there are multiple etiologies at work including undiagnosed sleep apnea which contributes significantly to the pulmonary hypertension. We reviewed different levels of care. On one extreme tracheostomy and home ventilator would be a co nsideration. A BiPAP type machine without a tracheostomy would be a consideration. There are not many medications available for use with pulmonary hypertension in a patient with this many comorbidities. They [id number] home hospice plan was reviewed but the patient's quality of life would not be much different from in the hospital. In addition it would be extremely hard for family to take care of her 24/7 due to her multiple comorbidities. We then reviewed hospice options. I explained the difference [facility] palliative care, hospice and comfort care. The patient's life expectancy if comfort care measures were implemented and all of her respiratory support was discontinued would be likely 48 hours or less. This option compared to the quality of life with any respiratory support and home hospice might be favorable since the quality of her life will not improve. We reviewed the healthcare proxy that she has filed with her attorney law clerk. They are also power of attorney law clerk documents for her sons. I explained that the package crimper will be seeing the patient. Once he sees her then we will explain the options to the patient and I will call the patient's sons and review that discussion with them. Unfortunately we are not able to have a speaker phone discussion as the patient is hardly able to get off of BiPAP to eat. At this point, realistically, comfort measures might be the best option. The sons admitted that they do not want their mother to suffer unnecessarily. Care Planning Goals: Determine disposition in this unfortunate very complex patient whose life expectancy is likely less than 2 months even with aggressive treatment versus less than 2 days with comfort measures only Document(s) Completed: The patient has already completed necessary documentation with her family and attorney law clerk. Time Spent: 45 min
[2019-08-10] MEDS: ASPIRIN 81 MG TABLET, ENT COATED PO SCH (22:06)
[2019-08-10] MEDS: MELATONIN 3 MG TABLET PO SCH (22:06)
[2019-08-11] MEDS: LEVOTHYROXINE SODIUM 0.025 MG TABLET PO SCH (05:54)
[2019-08-11] MEDS: PANTOPRAZOLE SODIUM 40 MG TABLET.DR PO SCH (05:54)
[2019-08-11] MEDS: FUROSEMIDE INJ/PF 20 MG/2 ML SDV IV SCH ×3 (05:54→21:28)
[2019-08-11] MEDS: INSULIN LISPRO 100 UNIT/ML 3 ML VIAL SUBCUT SCH ×4 (08:25→21:32)
[2019-08-11] MEDS: LOSARTAN POTASSIUM 25 MG TABLET PO SCH ×2 (10:41→21:28)
[2019-08-11] MEDS: POTASSIUM CHLORIDE 10 MEQ TABLET.ER PO SCH (10:41)
[2019-08-11] MEDS: DILTIAZEM HCL 120 MG CAP.SR.24H PO SCH ×2 (10:41→21:28)
[2019-08-11] MEDS: NYSTATIN TOPICAL POWDER 15 GM TP SCH ×3 (10:41→17:59)
[2019-08-11] MEDS: LISINOPRIL 5 MG TABLET PO SCH (10:41)
[2019-08-11] MEDS: FERROUS SULFATE 325 MG TABLET PO SCH ×2 (10:41→17:58)
[2019-08-11] MEDS: ENOXAPARIN SODIUM INJ 40 MG/0.4 ML DISP.SYRIN SUBCUT SCH (10:44)
--- NOTE | 2019-08-11 14:57 | PDOC PROGRESS REPORT ---
Subjective Progress Note for:: 08/11/19 Subjective:: The patient is still BiPAP dependent. We have discussed plans of care over the last several days. She is opting for a hospice level of care with transition to comfort measures only undertaken at home. Reason For Visit: HEART FAILURE DIABETES MELLITUS MORBID OBESITY Physical Exam Vital Signs: Temp Pulse Resp BP Pulse Ox 98.2 F 89 24 H 111/54 L 99 08/11/19 10:47 08/11/19 14:00 08/11/19 10:47 08/11/19 13:21 08/11/19 10:47 Intake & Output 08/10/19 08/11/19 08/12/19 06:59 06:59 06:59 Intake Total 360 240 Output Total 4400 5450 1525 Balance -4400 -5090 -1285 Weight 172.3 kg 159.3 kg General appearance: PRESENT: cooperative, mild distress, morbidly obese, well- developed Head exam: PRESENT: atraumatic, normocephalic Eye exam: PRESENT: other - Confluent erythema around the BiPAP mask Ear exam: PRESENT: normal external ear exam. ABSENT: bleeding, drainage Mouth exam: PRESENT: moist, tongue midline Respiratory exam: PRESENT: decreased breath sounds, prolonged expiratory phas, symmetrical, tachypnea. ABSENT: accessory muscle use, rhonchi, wheezes Cardiovascular exam: PRESENT: RRR, +S1, +S2. ABSENT: diastolic murmur, irregular rhythm, systolic murmur, tachycardia GI/Abdominal exam: PRESENT: diminished bowel sounds, soft, other - Pendulous abdomen. ABSENT: tenderness Rectal exam: PRESENT: deferred Gentrourinary exam: PRESENT: indwelling catheter Extremities exam: PRESENT: +2 edema Neurological exam: PRESENT: alert, awake, oriented to person, oriented to place, oriented to time, oriented to situation, CN II-XII grossly intact. ABSENT: altered Psychiatric exam: PRESENT: appropriate affect. ABSENT: agitated, anxious Focused psych exam: ABSENT: delusional, paranoid, restlessness Skin exam: PRESENT: dry, erythema, normal color, warm Results Laboratory Results: 08/10/19 09:20 08/10/19 09:20 08/04/19 08/04/19 08/05/19 15:50 15:50 05:00 Creatine Kinase 31 CK-MB (CK-2) 0.98 Troponin I < 0.012 < 0.012 NT-Pro-B Natriuret Pep 1990 H Impressions: Chest X-Ray 08/04/19 15:38 IMPRESSION: Cardiomegaly and basilar predominant hazy opacities that obscure the contours of the hemidiaphragms and blunt the costophrenic sulci. Clinical correlation for signs and symptoms of volume overload/ CHF is recommended. Assessment and Plan - Diagnosis (1) Acute respiratory failure with hypoxia Is this a current diagnosis for this admission?: Yes Plan: 08/04/2019 Secondary to heart failure with underlying morbid obesity hypoventilation. Patient denies sleep apnea. BiPAP for now. Wean off of BiPAP as tolerated. 08/05/2019 Continues to need BiPAP almost continuously 08/06/2019 Still significantly dependent on BiPAP. New diagnosis of severe pulmonary hypertension. This may make it more difficult to resolve her respiratory failure. Continue BiPAP and current regimen. 08/07/2019 Still dependent on BiPAP. 08/08/2019 It is very important that the patient cannot be off of BiPAP for any longer than 15 minutes. She has not made any improvements over the last several days. I believe she has a very poor prognosis. 08/09/2019 Unable to wean from BiPAP. I will ask pulmonology to see the patient. To the patient that if we cannot get her off of BiPAP she is going to 08/10/2019 I discussed the case with pulmonology. They will be seeing the patient. We will discuss potential interventions versus the possibility of no meaningful change in treatment 08/11/2019 The only reasonable option for aggressive treatment would be tracheostomy and on ventilator. The patient does not think that would be appropriate or desirable and therefore is enrolling in hospice. Because she wishes to be with family it will be home hospice at her son [facility]. Hospice does have BiPAP and oxygen available. Utilizing BiPAP will be at her discretion. (2) Congestive heart failure (CHF) Qualifiers: Heart failure type: right-sided Heart failure chronicity: acute on chronic Qualified Code(s): I50.813 - Acute on chronic right heart failure Is this a current diagnosis for this admission?: Yes Plan: 08/04/2019 I cannot find an old echocardiogram therefore I will order an echocardiogram. We will utilize diuretics. She is already on metoprolol for her fibrillation. Will monitor on telemetry and observe intake and output. 08/05/2019 Still not a significant negative fluid balance. I am going to keep the furosemide at 20 mg every 8 hours to try and avoid hypotension. Echocardiogram is pending. The patient will be seen by cardiology as well. 08/06/2019 Ejection fraction is 55% and diastolic function could not be assessed due to atrial fibrillation. She does have severe pulmonary hypertension and this is the likely instigating factor. We are maintaining a negative fluid balance. Continue current regimen. 08/07/2019 As noted above she has severe pulmonary hypertension. Dr. Copeland has made some adjustments in her medications. This does portend a poor prognosis. 08/08/2019 She has an approximate 6 L net negative fluid balance. This does not appear to be helping her respiratory failure unfortunately. Continue current medication regimen. 08/09/2019 Almost 11 L net negative balance. Continue current regimen. 08/10/2019 Continue current medication regimen 08/11/2019 Current net negative fluid balance is approximately 16 L. Despite this the patient still is dependent on BiPAP. We will continue her current regimen. (3) Pulmonary hypertension Is this a current diagnosis for this admission?: Yes Plan: 08/06/2019 Echocardiogram revealed severe pulmonary hypertension. Dr. Hickman did make some changes in her medication regimen. We will continue to monitor closely. 08/07/2019 Continue with new medication regimen. Prognosis is poor. 08/09/2019 I will ask pulmonology to see the patient. If we cannot taper off of BiPAP patient will not survive 08/10/2019 Pulmonology will see the patient tomorrow. We did review the case over the phone today. 08/11/2019 No additional treatments deemed appropriate for this patient after review by pulmonology. Therefore home with hospice. This is 1 of the major factors contributing to her ongoing shortness of breath. (4) Hyperglycemia due to type 2 diabetes mellitus Qualifiers: Diabetes mellitus terminal operations supervisor insulin use: with correction use Qualified Code(s): E11.65 - Type 2 diabetes mellitus with hyperglycemia; Z79.4 - terminal press operator (current) use of insulin Is this a current diagnosis for this admission?: Yes Plan: 08/04/2019 Consistent carbohydrate diet. Insulin therapy with Accu-Cheks before meals and at bedtime. 08/05/2019 Accu-Cheks are variable but for the most part under 200. Continue current regimen. 08/06/2019 Continue current regimen. Reasonable control of glucose at this time. 08/07/2019 Accu-Cheks remain reasonably controlled. No changes at this time. 08/08/2019 As above 08/09/2019 Now getting occasional Accu-Cheks under 100. Appetite is poor. We may need to adjust therapy. 08/10/2019 Long-acting insulin has been discontinued. With the patient's appetite being so poor we will use sliding scale alone. 08/11/2019 Glucose control varies. No change in regimen. (5) Longstanding persistent atrial fibrillation Is this a current diagnosis for this admission?: Yes Plan: 08/04/2019 Continue metoprolol. Monitor on telemetry. Will have cardiology consult and consider anticoagulation. 08/05/2019 No changes at this time 08/06/2019 Because of the new diagnosis of pulmonary hypertension cardiology has made some changes to the patient's regimen. Diltiazem has been increased and losartan has been added. 08/07/2019 Good rate control at this time. No changes. 08/08/2019 Continue current regimen 08/09/2019 Good control on current regimen 08/10/2019 No changes to above regimen 08/11/2019 Continue current regimen. (6) Hypothyroidism Qualifiers: Hypothyroidism type: unspecified Qualified Code(s): E03.9 - Hypothyroidism, unspecified Is this a current diagnosis for this admission?: Yes Plan: 08/04/2019 Continue levothyroxine 08/06/2019 No change 08/11/2019 Anticipate continuing current dose of levothyroxine at discharge (7) Iron deficiency anemia Qualifiers: Iron deficiency anemia type: unspecified iron deficiency Qualified Code(s): D50.9 - Iron deficiency anemia, unspecified Is this a current diagnosis for this admission?: Yes Plan: 08/04/2019 Continue iron supplement 08/06/2019 We will recheck CBC tomorrow. Continue iron supplement. 08/07/2019 Hemoglobin remained stable. 08/08/2019 Check labs every several days unless there is evidence of acute blood loss 08/11/2019 Hemoglobin has been stable. No changes at this time. (8) Hyperkalemia Is this a current diagnosis for this admission?: Yes Plan: 08/04/2019 Potassium will slightly decrease with diuresis. Monitor electrolytes. 08/05/2019 Potassium normal. Need to monitor for decreased potassium now that she is on furosemide. 08/06/2019 Continue potassium supplement. Will recheck electrolytes tomorrow. 08/07/2019 Normokalemic. No changes. 08/08/2019 Check labs every several days 08/09/2019 We will check labs tomorrow. Try to avoid excessive testing. 08/10/2019 Normokalemic today 08/11/2019 Potassium has been normal other than the day of admission. (9) Morbid obesity Is this a current diagnosis for this admission?: Yes Plan: 08/04/2019 BMI is 63.8. This certainly adds to the comorbidities. Likely a component of obesity hypoventilation and possible sleep apnea. Morbid obesity also puts strain on the heart and his diet for diabetes. Also contributes to the chronic lower extremity edema and chronic thrombophlebitis. 08/07/2019 Unfortunately this only compounds her problems. No realistic chance of any significant weight loss at this time. 08/11/2019 Another major contributing factor to her current status (10) Leg edema Is this a current diagnosis for this admission?: Yes Plan: 08/04/2019 Chronic lower extremity edema. Erythema is likely due to chronic superficial thrombophlebitis. Cobblestoning of the skin indicates longstanding severe lymphedema. Try to elevate extremities when possible 08/05/2019 Continue as above 08/07/2019 Elevate when possible. Continue diuresis. 08/08/2019 Remains in net negative fluid balance. 08/09/2019 Improving with diuresis and she is not putting her legs in a dependent position. 08/11/2019 Improved with aggressive diuresis and leg elevation - Plan Summary Summary: 08/05/2019 Patient is notoriously slow to be active. As soon is she is not BiPAP dependent Physical therapy begin working with her in anticipation of discharge. 08/11/2019 In light of the inability to take her BiPAP, the patient has chosen home hospice. The family is in agreement. We discussed several options and services. They decided on [facility]. I placed a call to begin the process of enrolling the patient through their intake department. The goal is for discharge tomorrow. - Time Time Spent with patient: 25-34 minutes Medications reviewed and adjusted accordingly: Yes Anticipated discharge: Hospice Within: within 24 hours
--- NOTE | 2019-08-11 16:00 | PDOC CONSULTATION ---
Consultation Consult Date: 08/10/19 Attending physician:: TRESSA LYN Provider Consulted: ASHLEY CHAMPION Consult reason:: PHTN History of Present Illness Admission Date/PCP: 08/04/19 17:56 TOMMY REYEZ MD History of Present Illness: MICHAELA WESLEY is a 78 year old female second admission in the last 3 to 4 days with increasing shortness of breath physical progressive she has multiple comorbidities including morbid obesity diabetes hypertension COPD and pulmonary hypertension. She was profoundly hypoxemic but was given BiPAP with oxygen and slowly improved. She is currently non-smoker but admits to having at least a [id number] history. Past Medical History Cardiac Medical History: Reports: Hyperlipidema, Hypertension Denies: Congestive Heart Failure, Myocardial Infarction Pulmonary Medical History: Denies: Chronic Obstructive Pulmonary Disease (COPD) Endocrine Medical History: Reports: Diabetes Mellitus Type 2, Hypothyroidism, Obesity Musculoskeltal Medical History: Reports: Arthritis Psychiatric Medical History: Reports: Depression Hematology: Reports: Anemia Past Surgical History Past Surgical History: Reports: Cholecystectomy, Tubal Ligation Social History Information Source: Patient, [facility] Records Lives with: Family Smoking Status: Former Smoker Number of Years Smokin Passive smoke exposure as: Both Frequency of Alcohol Use: None Hx Recreational Drug Use: No Hx Prescription Drug Abuse: No Do you have pets?: Yes Have you had any respiratory illnesses as a child?: No Have you been exposed to any sick contacts recently?: No Have you had any recent respiratory illnesses?: Yes Have you travelled outside of [place] in the past 12 months?: No - Advance Directive Resuscitation Status: Full Code Family History Parental Family History Reviewed: Yes Children Family History Reviewed: Yes Sibling(s) Family History Reviewed.: Yes Medication/Allergy Home Medications: Levothyroxine Sodium [Synthroid 0.025 mg Tablet] 0.025 mg PO Q6AM tablet 07/09/19 Metoprolol Succinate [Toprol Xl 25 mg Tab.sr] 25 mg PO DAILY #30 tab.sr.24h 07/15/19 Cetirizine HCl [Zyrtec 10 mg Tablet] 10 mg PO QHS 08/04/19 Ferrous Sulfate [Feosol 325 mg Tablet] 325 mg PO BID 08/04/19 Insulin NPH Hum/Reg Insulin Hm [Novolin 70-30 Flexpen] 28 units SQ WSUPPER 08/04/19 Insulin NPH Hum/Reg Insulin Hm [Novolin 70-30 Flexpen] 34 units SQ [id number] 08/04/19 Allergies/Adverse Reactions: codeine Allergy (Verified 07/02/19 13:51) Review of Systems All systems: reviewed and no additional remarkable complaints except as stated Physical Exam Vital Signs: Temp Pulse Resp BP Pulse Ox 97.7 F 433 H 35 H 113/56 L 97 08/10/19 00:11 08/10/19 07:00 08/10/19 08:18 08/10/19 00:11 08/10/19 08:18 Intake & Output 08/09/19 08/10/19 08/11/19 06:59 06:59 06:59 Intake Total 500 Output Total 2100 4400 Balance -1600 -4400 Weight 170 kg 172.3 kg General appearance: PRESENT: cooperative, disheveled, hard of hearing, morbidly obese, well-developed, well-nourished Head exam: PRESENT: atraumatic, normocephalic Eye exam: PRESENT: conjunctiva pale, EOMI. ABSENT: nystagmus, periorbital swelling, scleral icterus Mouth exam: PRESENT: dry mucosa, neck supple, tongue midline Neck exam: ABSENT: carotid bruit, full ROM, JVD, lymphadenopathy, meningismus, tenderness, thyromegaly, tracheal deviation, tracheostomy, other Respiratory exam: PRESENT: decreased breath sounds, prolonged expiratory phas, rales, rhonchi, symmetrical, unlabored, wheezes. ABSENT: retraction, stridor Cardiovascular exam: PRESENT: irregular rhythm Pulses: PRESENT: normal radial pulses GI/Abdominal exam: PRESENT: soft. ABSENT: guarding, mass, rebound, tenderness Extremities exam: PRESENT: +2 edema. ABSENT: calf tenderness, clubbing, joint swelling, tenderness Musculoskeletal exam: ABSENT: deformity, dislocation Neurological exam: PRESENT: alert, awake Psychiatric exam: PRESENT: flat affect Skin exam: PRESENT: dry, warm Results Laboratory Results: 08/10/19 09:20 08/10/19 09:20 08/10/19 08/10/19 09:20 09:20 WBC 8.9 RBC 4.27 Hgb 11.3 L Hct 35.2 L MCV 83 MCH 26.5 L MCHC 32.1 RDW 31.2 H Plt Count 230 Seg Neutrophils % 79.6 H Sodium 138.5 Potassium 4.3 Chloride 96 L Carbon Dioxide 37 H Anion Gap 6 BUN 16 Creatinine 0.84 Est GFR ( Amer) > 60 Glucose 100 Calcium 9.0 Phosphorus 3.9 Magnesium 1.5 L 08/04/19 08/04/19 08/05/19 15:50 15:50 05:00 Creatine Kinase 31 CK-MB (CK-2) 0.98 Troponin I < 0.012 < 0.012 NT-Pro-B Natriuret Pep 1990 H Impressions: Chest X-Ray 08/04/19 15:38 IMPRESSION: Cardiomegaly and basilar predominant hazy opacities that obscure the contours of the hemidiaphragms and blunt the costophrenic sulci. Clinical correlation for signs and symptoms of volume overload/ CHF is recommended. Assessment & Plan - Diagnosis (1) Pulmonary hypertension Is this a current diagnosis for this admission?: Yes Plan: unable to use revatio due to nitrate use The above patient has failed BiPAP with a patent airway. This patient would benefit from noninvasive mechanical ventilation via the trilogy AVAPS/AE and faster responding AVAPS rates. The trilogy is able to provide a target tidal volume and also adjusting the EPAP pressures to maintain a patent airway as well as an oral backup rate this machine will help improve PaCO2 levels. The severity of the patient's condition will lead to future hospitalizations and readmissions as well as life-threatening situations without the use of this de vice day and night. Trilogy home vent needed for hypercapnic respiratory failure. [facility] or [facility] to follow for trilogy set up. (2) Acute respiratory failure with hypoxia Is this a current diagnosis for this admission?: Yes Plan: Hypertension heart failure pulmonary hypertension and more than likely obstructive sleep apnea versus obesity hypoventilation syndrome just this patient is going to be bound NIPPV for the foreseeable future may be applicable if desired to consider a trach and permanent ventilation at home or make the patient DNR and keep on comfort care. This will have to be decided amongst the family and the primary care physician (3) Congestive heart failure (CHF) Qualifiers: Heart failure type: right-sided Heart failure chronicity: acute on chronic Qualified Code(s): I50.813 - Acute on chronic right heart failure Is this a current diagnosis for this admission?: Yes Plan: As per cardiology (4) Longstanding persistent atrial fibrillation Is this a current diagnosis for this admission?: Yes Plan: Certainly her physical status is designated by her ATRIAL FIBRILLATION as well as her congestive heart failure pulmonary hypertension - Time Time Spent with patient: 55 min
--- NOTE | 2019-08-11 16:06 | Progress Note ---
Provider Note Provider Note: After reviewing the options with the patient she has chosen a conservative care plan. She would like family access for visiting. This will be restricted in the hospital. To that end I called her son Shane. We discussed different options. They have used hospice services before. Decided on p or hospice. Because of the patient's condition I would like to get her home as soon as possible. In fact cold intake at [facility] and initiated enrolling the patient. Socorro Calvo from discharge planning will continue to make arrangements. Great deal plan would be for the patient to discharge to home tomorrow. She will be on oxygen therapy at home. We can continue similar medications per my discussion today it might be a comfort care plan only.
[2019-08-11] MEDS: ACETAMINOPHEN 325 MG TABLET PO PRN (20:07)
--- NOTE | 2019-08-11 20:38 | Progress Note ---
Provider Note Provider Note: CARDIOLOGY PROGRESS NOTE by Dr. Renee Copeland on 08/11/2019. SUBJECTIVE the patient continues to be short of breath and is requiring BiPAP throughout the day. She has been seen by pulmonology and they have recommended a noninvasive ventilator. Leg edema is improved. She has no chest pain discomfort. She is in atrial fibrillation with controlled ventricular spots. There is no PND. There is no dizziness or syncope or near syncope. There is no TIA CVA symptoms. Various treatment modalities approaches including hospice are being explored by the attending provider with the patient and the patient's son. PHYSICAL EXAMINATION: The patient is morbidly obese. In some mild respiratory distress on the BiPAP. Selected Entries 08/11/19 08/11/19 08/11/19 10:00 10:47 11:48 Temperature 98.2 F Temperature Axillary Source Pulse Rate 79 Respiratory 24 H Rate Blood Pressure 90/28 L Blood Pressure 48 Mean BP Location Left Arm BP Position Supine O2 Sat by Pulse 99 Oximetry Oxygen Delivery Bi-pap Method ( includes room air) Fraction of 30 Inspired Oxygen (FIO2) Oxygen Flow 5.00 Rate HEAD: Is atraumatic normocephalic. EYES: Pupils are equal round regular reactive to light accommodation. Extraocular movements are normal. THERE IS NO CONJUNCTIVAL PALLOR. THERE IS NO SCLERAL ICTERUS. EARS: TYMPANIC MEMBRANES ARE INTACT. EXTERNAL AUDITORY CANALS ARE CLEAR. NOSE: THERE IS NO DEVIATED NASAL S EPTUM. THERE IS NO INFLAMMATION OF THE NASAL MUCOUS MEMBRANE. MOUTH: MUCOUS MEMBRANES OF THE MOUTH ARE MOIST. TONGUE IS MOIST. THERE IS NO ULCERS. THROAT: THERE IS NO REDNESS OF THE OROPHARYNX. THERE IS NO EXUDATES. SKIN: THERE IS NO SKIN RASHES THERE IS NO PETECHIA OR ECCHYMOSIS THERE IS NO SKIN LESIONS. There is been just stasis dermatitis of the lower extremities. NECK: Supple. There is JVD present. Carotids are equal there is no bruit. There is no lymphadenopathy there is no goiter. LUNGS: Shows decreased breath sounds bilaterally. There is a few fine bibasilar rales of left heart failure. There is no rhonchi or wheezing. HEART: S1-S2 is heard. S1 is variable intensity. There is no S3 gallop. There is no S4 gallop. There is systolic murmur at the left sternal border and the apex there is no rub. ABDOMEN: Is obese nontender there is no hepatosplenomegaly. There is no masses or tender areas. There is no rebound guarding rigidity. Abdomen is obese. EXTREMITIES: Femorals are deep. Femorals are difficult to palpate. Leg pulses difficult to palpate. There is no femoral bruits. There is trace to mild bilateral pedal edema with venous stasis dermatitis changes. There is no DVT or cellulitis. There is no calf tenderness. There is no cyanosis or clubbing. STRAW BOSS: The patient is conscious awake alert oriented x3 with no focal deficits. PSYCHIATRIC: The p atient judgment site are intact her affect is normal. Labs- All tests 24 hr 08/11/19 08/11/19 08/11/19 06:45 10:49 15:41 POC Glucose 129 H 135 H 173 H 08/11/19 21:29 POC Glucose 233 H Chest X-Ray 08/04/19 15:38 IMPRESSION: Cardiomegaly and basilar predominant hazy opacities that obscure the contours of the hemidiaphragms and blunt the costophrenic sulci. Clinical correlation for signs and symptoms of volume overload/ CHF is recommended. IMPRESSION/RECOMMENDATION: 1. Acute on chronic right ventricular systolic heart failure. This is most likely secondary to significant pulmonary hypertension. Would recommend stopping the patient's metoprolol. Started the patient on Cardizem and have inc reased to 60 mg p.o. every 6 hours. Would also add an ARB. We will change the Cardizem to long-acting preparation in the form of Cardizem CD 120 mg p.o. twice daily. 2. Mild left ventricular diastolic heart failure most likely. Shows normal left and systolic function. There is difficulty evaluating evidence of LV diastolic dysfunction. 3. severe pulmonary hypertension: By echocardiogram. As mentioned earlier we will treat the patient with Cardizem and losartan. 4. Chronic atrial fibrillation: Note the patient's corrected Nima Vasc score is 4. But the patient has a history of recent anemia most likely secondary to GI bleed. Hence we will hold off on chronic anticoagulation. 5. Diabetes mellitus type 2 insulin-dependent. 6. Hypothyroidism: Continue thyroid replacement. 7. Suspected obstructive sleep apnea: The patient is not a good historian is not clear if the patient did have a sleep study done if not she should have a sleep study and would benefit from CPAP/BiPAP. 8. Morbid obesity. Medications reviewed. Medications changed. Medical decision making is of high complexity. 40 minutes spent with patient with more than 50% of time spent in direct patient care medical regimen and management plan discussed with attending
[2019-08-11] MEDS: ASPIRIN 81 MG TABLET, ENT COATED PO SCH (21:28)
[2019-08-11] MEDS: MELATONIN 3 MG TABLET PO SCH (21:28)
[2019-08-12] MEDS: LEVOTHYROXINE SODIUM 0.025 MG TABLET PO SCH (06:22)
[2019-08-12] MEDS: FUROSEMIDE INJ/PF 20 MG/2 ML SDV IV SCH ×3 (06:22→22:15)
[2019-08-12] MEDS: PANTOPRAZOLE SODIUM 40 MG TABLET.DR PO SCH (06:22)
[2019-08-12 07:03] LABS: RHEUMATOID FACTOR LEVELS IGA 86.6 EU/ml (.); RHEUMATOID FACTOR LEVELS IGG 99.9 EU/ml (.)
[2019-08-12] MEDS: INSULIN LISPRO 100 UNIT/ML 3 ML VIAL SUBCUT SCH ×4 (08:29→22:15)
[2019-08-12] MEDS: FERROUS SULFATE 325 MG TABLET PO SCH ×2 (08:29→17:14)
--- NOTE | 2019-08-12 08:40 | PDOC DISCHARGE SUMMARY ---
Impression - Admit/DC Date/PCP Admission Date/Primary Care Provider: 08/04/19 17:56 SHANE REYEZ MD Discharge Date: 08/12/19 - Discharge Diagnosis (1) Acute respiratory failure with hypoxia Is this a current diagnosis for this admission?: Yes (2) Congestive heart failure (CHF) Is this a current diagnosis for this admission?: Yes (3) Pulmonary hypertension Is this a current diagnosis for this admission?: Yes (4) Hyperglycemia due to type 2 diabetes mellitus Is this a current diagnosis for this admission?: Yes (5) Longstanding persistent atrial fibrillation Is this a current diagnosis for this admission?: Yes (6) Hypothyroidism Is this a current diagnosis for this admission?: Yes (7) Iron deficiency anemia Is this a current diagnosis for this admission?: Yes (8) Hyperkalemia Is this a current diagnosis for this admission?: Yes (9) Morbid obesity Is this a current diagnosis for this admission?: Yes (10) Leg edema Is this a current diagnosis for this admission?: Yes - Assessment Summary: 08/05/2019 Patient is notoriously slow to be active. As soon is she is not BiPAP dependent Physical therapy begin working with her in anticipation of discharge. 08/11/2019 In light of the inability to take her BiPAP, the patient has chosen home hospice. The family is in agreement. We discussed several options and services. They decided on [facility]. I placed a call to begin the process of enrolling the patient through their intake department. The goal is for discharge tomorrow. - Additional Information Resuscitation Status: Full Code Discharge Diet: Cardiac, Diabetic Discharge Activity: Activity As Tolerated, Balance Activity w/Rest, Weigh Daily Referrals: SHANE REYEZ MD [Primary Care Provider] - Follow up as needed Prescriptions: Diltiazem HCl [Cardizem Cd 120 mg Capsule] 120 mg PO Q12 #60 cap.sr.24h Losartan Potassium [Cozaar 50 mg Tablet] 50 mg PO BID 30 Days #60 tablet Furosemide [Lasix 40 mg Tablet] 40 mg PO BID 30 Days #60 tablet Nitroglycerin [Nitrostat 0.4 mg (1/150 Gr) Tabs 25/Bottle] 1 tab SL Q5MP PRN #1 bottle PRN Reason: For Chest Pain Potassium Chloride 20 meq PO DAILY #30 tab.er.prt Pantoprazole Sodium [Protonix [address] Tablet] 40 mg PO Q6AM #30 tablet.dr Home Medications: Levothyroxine Sodium [Synthroid 0.025 mg Tablet] 0.025 mg PO Q6AM tablet 07/09/19 Cetirizine HCl [Zyrtec 10 mg Tablet] 10 mg PO QHS 08/04/19 Ferrous Sulfate [Feosol 325 mg Tablet] 325 mg PO BID 08/04/19 Insulin NPH Hum/Reg Insulin Hm [Novolin 70-30 Flexpen] 28 units SQ WSUPPER 08/04/19 Insulin NPH Hum/Reg Insulin Hm [Novolin 70-30 Flexpen] 34 units SQ WBRKFST 08/04/19 Aspirin [Ecotrin 81 mg EC Tablet] 81 mg PO QHS tabec 08/12/19 Diltiazem HCl [Cardizem Cd 120 mg Capsule] 120 mg PO Q12 #60 cap.sr.24h 08/12/19 Ferrous Sulfate [Feosol 325 mg Tablet] 325 mg PO BIDPCBS tablet 08/12/19 Furosemide [Lasix 40 mg Tablet] 40 mg PO BID 30 Days #60 tablet 08/12/19 Levothyroxine Sodium [Synthroid 0.025 mg Tablet] 0.025 mg PO Q6AM tablet 08/12/19 Losartan Potassium [Cozaar 50 mg Tablet] 50 mg PO BID 30 Days #60 tablet 08/12/19 Melatonin [Melatonin 3 mg Tablet] 6 mg PO QHS tablet 08/12/19 Nitroglycerin [Nitrostat 0.4 mg (1/150 Gr) Tabs 25/Bottle] 1 tab SL Q5MP PRN #1 bottle 08/12/19 Nystatin [Mycostatin Topical Powder 15 gm] 1 applic TP TID bottle 08/12/19 Pantoprazole Sodium [Protonix [address] Tablet] 40 mg PO Q6AM #30 tablet.dr 08/12/19 Potassium Chloride 20 meq PO DAILY #30 tab.er.prt 08/12/19 History of Present Illiness History of Present Illness: MICHAELA WESLEY is a 78 year old female with morbid obesity, longstanding persistent atrial fibrillation, hyperlipidemia, diabetes mellitus type 2, hypothyroidism and hypertension presents with shortness of breath. She was just discharged on July 09 from this hospital for symptomatic anemia and uncontrolled diabetes mellitus. She states that over the last 3 to 4 days she has been noticing increasing shortness of breath. She does not have a scale to weigh herself daily. She reports that she does try to be compliant with a cardiac diet. She in fact needs to be on a cardiac/diabetic diet. The brain natruretic peptide was elevated. Chest x-ray suggested fluid. On BiPAP her saturations are improved. Will be admitted to telemetry. We will check an echocardiogram because she has not had 1. We will continue treatment of her multiple comorbidities. Hospital Course Hospital Course: (1) Acute respiratory failure with hypoxia Is this a current diagnosis for this admission?: Yes Plan: 08/04/2019 Secondary to heart failure with underlying morbid obesity hypoventilation. Patient denies sleep apnea. BiPAP for now. Wean off of BiPAP as tolerated. 08/05/2019 Continues to need BiPAP almost continuously 08/06/2019 Still significantly dependent on BiPAP. New diagnosis of severe pulmonary hypertension. This may make it more difficult to resolve her respiratory mac lure. Continue BiPAP and current regimen. 08/07/2019 Still dependent on BiPAP. 08/08/2019 It is very important that the patient cannot be off of BiPAP for any longer than 15 minutes. She has not made any improvements over the last several days. I believe she has a very poor prognosis. 08/09/2019 Unable to wean from BiPAP. I will ask pulmonology to see the patient. To the patient that if we cannot get her off of BiPAP she is going to 08/10/2019 I discussed the case with pulmonology. They will be seeing the patient. We will discuss potential interventions versus the possibility of no meaningful change in treatment 08/11/2019 The only reasonable option for aggressive treatment would be tracheostomy and on ventilator. The patient does not think that would be appropriate or desirable and therefore is enrolling in hospice. Because she wishes to be with family it will be home hospice at her [facility]. Hospice does have BiPAP and oxygen available. Utilizing BiPAP will be at her discretion. 08/12/2019 The patient is in agreement with going home to her [facility] hosp[facility]. Hospice informed me that she can do BiPAP at home. She would like to try this to see how she tolerates it. (2) Congestive heart failure (CHF) Qualifiers: Heart failure type: right-sided Heart failure chronicity: acute on chronic Qualified Code(s): I50.813 - Acute on chronic right heart failure Is this a current diagnosis for this admission?: Yes Plan: 08/04/2019 I cannot find an old echocardiogram therefore I will order an echocardiogram. We will utilize diuretics. She is already on metoprolol for her fibrillation. Will monitor on telemetry and observe intake and output. 08/05/2019 Still not a significant negative fluid balance. I am going to keep the furosemide at 20 mg every 8 hours to try and avoid hypotension. Echocardiogram is pending. The patient will be seen by cardiology as well. 08/06/2019 Ejection fraction is 55% and diastolic function could not be assessed due to atrial fibrillation. She does have severe pulmonary hypertension and this is the likely instigating factor. We are maintaining a negative fluid balance. Continue current regimen. 08/07/2019 As noted above she has severe pulmonary hypertension. Dr. Copeland has made some adjustments in her medications. This does portend a poor prognosis. 08/08/2019 She has an approximate 6 L net negative fluid balance. This does not appear to be helping her respiratory failure unfortunately. Continue current medication regimen. 08/09/2019 Almost 11 L net negative balance. Continue current regimen. 08/10/2019 Continue current medication regimen 08/11/2019 Current net negative fluid balance is approximately 16 L. Despite this the patient still is dependent on BiPAP. We will continue her current regimen. 08/12/2019 18 L has been taken off. We will change to oral diuretics. Unfortunately due to the pulmonary hypertension, COPD and morbid obesity it has not helped her respiratory status enough to get off of BiPAP. (3) Pulmonary hypertension Is this a current diagnosis for this admission?: Yes Plan: 08/06/2019 Echocardiogram revealed severe pulmonary hypertension. Dr. Hickman did make some c hanges in her medication regimen. We will continue to monitor closely. 08/07/2019 Continue with new medication regimen. Prognosis is poor. 08/09/2019 I will ask pulmonology to see the patient. If we cannot taper off of BiPAP patient will not survive 08/10/2019 Pulmonology will see the patient tomorrow. We did review the case over the phone today. 08/11/2019 No additional treatments deemed appropriate for this patient after review by pulmonology. Therefore home with hospice. This is 1 of the major factors contributing to her ongoing shortness of breath. 08/12/2019 Continue same regimen (4) Hyperglycemia due to type 2 diabetes mellitus Qualifiers: Diabetes mellitus assisted insulin use: with assisted use Qualified Code(s): E11.65 - Type 2 diabetes mellitus with hyperglycemia; Z79.4 - oysterman (current) use of insulin Is this a current diagnosis for this admission?: Yes Plan: 08/04/2019 Consistent carbohydrate diet. Insulin therapy with Accu-Cheks before meals and at bedtime. 08/05/2019 Accu-Cheks are variable but for the most part under 200. Continue current regimen. 08/06/2019 Continue current regimen. Reasonable control of glucose at this time. 08/07/2019 Accu-Cheks remain reasonably controlled. No changes at this time. 08/08/2019 As above 08/09/2019 Now getting occasional Accu-Cheks under 100. Appetite is poor. We may need to adjust therapy. 08/10/2019 Long-acting insulin has been discontinued. With the patient's appetite being so poor we will use sliding scale alone. 08/11/2019 Glucose control varies. No change in regimen. 08/12/2019 Continue 70/30 insulin at home (5) Longstanding persistent atrial fibrillation Is this a current diagnosis for this admission?: Yes Plan: 08/04/2019 Continue metoprolol. Monitor on telemetry. Will have cardiology consult and consider anticoagulation. 08/05/2019 No changes at this time 08/06/2019 Because of the new diagnosis of pulmonary hypertension cardiology has made some changes to the patient's regimen. Diltiazem has been increased and losartan has been added. 08/07/2019 Good rate control at this time. No changes. 08/08/2019 Continue current regimen 08/09/2019 Good control on current regimen 08/10/2019 No changes to above regimen 08/11/2019 Continue current regimen. 08/12/2019 The patient has been doing better utilizing diltiazem. We will discontinue her home metoprolol in favor of the diltiazem. (6) Hypothyroidism Qualifiers: Hypothyroidism type: unspecified Qualified Code(s): E03.9 - Hypothyroidism, unspecified Is this a current diagnosis for this admission?: Yes Plan: 08/04/2019 Continue levothyroxine 08/06/2019 No change 08/11/2019 Anticipate continuing current dose of levothyroxine at discharge 08/12/2019 Continue current dose (7) Iron deficiency anemia Qualifiers: Iron deficiency anemia type: unspecified iron deficiency Qualified Code(s): D50.9 - Iron deficiency anemia, unspecified Is this a current diagnosis for this admission?: Yes Plan: 08/04/2019 Continue iron supplement 08/06/2019 We will recheck CBC tomorrow. Continue iron supplement. 08/07/2019 Hemoglobin remained stable. 08/08/2019 Check labs every several days unless there is evidence of acute blood loss 08/11/2019 Hemoglobin has been stable. No changes at this time. 08/12/2019 Continue iron supplement (8) Hyperkalemia Is this a current diagnosis for this admission?: Yes Plan: 08/04/2019 Potassium will slightly decrease with diuresis. Monitor electrolytes. 08/05/2019 Potassium normal. Need to monitor for decreased potassium now that she is on furosemide. 08/06/2019 Continue potassium supplement. Will recheck electrolytes tomorrow. 08/07/2019 Normokalemic. No changes. 08/08/2019 Check labs every several days 08/09/2019 We will check labs tomorrow. Try to avoid excessive testing. 08/10/2019 Normokalemic today 08/11/2019 Potassium has been normal other than the day of admission. 08/12/2019 Continue potassium at home (9) Morbid obesity Is this a current diagnosis for this admission?: Yes Plan: 08/04/2019 BMI is 63.8. This certainly adds to the comorbidities. Likely a component of obesity hypoventilation and possible sleep apnea. Morbid obesity also puts strain on the heart and his diet for diabetes. Also contributes to the chronic lower extremity edema and chronic thrombophlebitis. 08/07/2019 Unfortunately this only compounds her problems. No realistic chance of any significant weight loss at this time. 08/11/2019 Another major contributing factor to her current status (10) Leg edema Is this a current diagnosis for this admission?: Yes Plan: 08/04/2019 Chronic lower extremity edema. Erythema is likely due to chronic superficial thrombophlebitis. Cobblestoning of the skin indicates longstanding severe lymphedema. Try to elevate extremities when possible 08/05/2019 Continue as above 08/07/2019 Elevate when possible. Continue diuresis. 08/08/2019 Remains in net negative fluid balance. 08/09/2019 Improving with diuresis and she is not putting her legs in a dependent position. 08/11/2019 Improved with aggressive diuresis and leg elevation Physical Exam Vital Signs: Temp Pulse Resp BP Pulse Ox 97.6 F 54 L 32 H 117/52 L 98 08/12/19 07:23 08/12/19 07:23 08/12/19 07:55 08/12/19 07:23 08/12/19 07:55 Intake & Output 08/11/19 08/12/19 08/13/19 06:59 06:59 06:59 Intake Total 360 780 Output Total 5482 9289 Balance -5285 -4432 Weight 159.3 kg 155.5 kg General appearance: PRESENT: cooperative, mild distress - Still BiPAP dependent, morbidly obese, well-developed Respiratory exam: PRESENT: decreased breath sounds - Difficult to assess for abnormal breath sounds due to body habitus and the noise of BiPAP, symmetrical, tachypnea. ABSENT: rales, rhonchi, wheezes Cardiovascular exam: PRESENT: RRR, +S1, +S2 GI/Abdominal exam: PRESENT: normal bowel sounds, soft, other - Pendulous abdomen. ABSENT: distended, guarding Rectal exam: PRESENT: deferred Gentrourinary exam: PRESENT: indwelling catheter Extremities exam: PRESENT: +2 edema Neurological exam: PRESENT: alert, awake, oriented to person, oriented to place, oriented to time, oriented to situation, CN II-XII grossly intact Psychiatric exam: PRESENT: appropriate affect. ABSENT: agitated, anxious Focused psych exam: ABSENT: delusional, paranoid, restlessness Skin exam: PRESENT: erythema - Due to the BiPAP mask Results Laboratory Results: WBC 8.9 10^3/uL (4.0-10.5) 08/10/19 09:20 RBC 4.27 10^6/uL (3.72-5.28) 08/10/19 09:20 Hgb 11.3 g/dL (12.0-15.5) L 08/10/19 09:20 Hct 35.2 % (36.0-47.0) L 08/10/19 09:20 MCV 83 fl (80-97) 08/10/19 09:20 MCH 26.5 pg (27.0-33.4) L 08/10/19 09:20 MCHC 32.1 g/dL (32.0-36.0) 08/10/19 09:20 RDW 31.2 % (11.5-14.0) H 08/10/19 09:20 Plt Count 230 10^3/uL (150-450) 08/10/19 09:20 Lymph % (Auto) 11.4 % (13-45) L 08/10/19 09:20 [place] % (Auto) 6.6 % (3-13) 08/10/19 09:20 Eos % (Auto) 1.6 % (0-6) 08/10/19 09:20 Baso % (Auto) 0.8 % (0-2) 08/10/19 09:20 Absolute Neuts (auto) 7.1 10^3/uL (1.7-8.2) 08/10/19 09:20 Absolute Lymphs (auto) 1.0 10^3/uL (0.5-4.7) 08/10/19 09:20 Absolute Monos (auto) 0.6 10^3/uL (0.1-1.4) 08/10/19 09:20 Absolute Eos (auto) 0.1 10^3/uL (0.0-0.6) 08/10/19 09:20 Absolute Basos (auto) 0.1 10^3/uL (0.0-0.2) 08/10/19 09:20 Seg Neutrophils % 79.6 % (42-78) H 08/10/19 09:20 Toxic Granulation SLIGHT 08/04/19 15:50 Large Platelets PRESENT 08/07/19 06:33 Giant Platelets PRESENT 08/04/19 15:50 Platelet Comment ADEQUATE 08/10/19 09:20 Polychromasia SLIGHT 08/10/19 09:20 Hypochromasia SLIGHT 08/10/19 09:20 Poikilocytosis SLIGHT 08/10/19 09:20 Anisocytosis 4+ 08/10/19 09:20 Tear Drop Cells SLIGHT 08/07/19 06:33 Stomatocytes SLIGHT 08/10/19 09:20 Kenny Cells SLIGHT 08/10/19 09:20 ESR 41 mm/hr (0-30) H 08/06/19 05:05 Carbonic Acid 1.50 mmol/L (1.05-1.35) H 08/04/19 15:50 HCO3/H2CO3 Ratio 18:1 08/04/19 15:50 ABG pH 7.36 (7.35-7.45) 08/04/19 15:50 ABG pCO2 49.7 mmHg (35-45) H 08/04/19 15:50 ABG pO2 153.7 mmHg (80-100) H 08/04/19 15:50 ABG HCO3 27.4 mmol/L (20-24) H 08/04/19 15:50 ABG Total CO2 29.0 mmol/L (21-25) H 08/04/19 15:50 ABG O2 Saturation 98.9 % (94-98) H 08/04/19 15:50 ABG Base Excess 1.4 mmol/L 08/04/19 15:50 FiO2 40% 08/04/19 15:50 Sodium 138.5 mmol/L (137-145) 08/10/19 09:20 Potassium 4.3 mmol/L (3.6-5.0) 08/10/19 09:20 Chloride 96 mmol/L (98-107) L 08/10/19 09:20 Carbon Dioxide 37 mmol/L (22-30) H 08/10/19 09:20 Anion Gap 6 (5-19) 08/10/19 09:20 BUN 16 mg/dL (7-20) 08/10/19 09:20 Creatinine 0.84 mg/dL (0.52-1.25) 08/10/19 09:20 Est GFR ( Amer) > 60 (>60) 08/10/19 09:20 Est GFR (MDRD) Non-Af > 60 (>60) 08/10/19 09:20 Glucose 100 mg/dL (75-110) 08/10/19 09:20 POC Glucose 177 mg/dL (70-110) H 08/12/19 06:44 Lactic Acid 1.3 mmol/L (0.7-2.1) 08/04/19 15:50 Calcium 9.0 mg/dL (8.4-10.2) 08/10/19 09:20 Phosphorus 3.9 mg/dL (2.5-4.5) 08/10/19 09:20 Magnesium 1.5 mg/dL (1.6-2.3) L 08/10/19 09:20 Total Bilirubin 0.5 mg/dL (0.2-1.3) 08/04/19 15:50 Direct Bilirubin 0.1 mg/dL (0.0-0.4) 08/04/19 15:50 Neonat Total Bilirubin Not Reportable 08/04/19 15:50 Neonat Direct Bilirubin Not Reportable 08/04/19 15:50 Neonat Indirect Bili Not Reportable 08/04/19 15:50 AST 27 U/L (14-36) 08/04/19 15:50 ALT 12 U/L (<35) 08/04/19 15:50 Alkaline Phosphatase 75 U/L (38-126) 08/04/19 15:50 Creatine Kinase 31 U/L (30-135) 08/04/19 15:50 CK-MB (CK-2) 0.98 ng/mL (<4.55) 08/04/19 15:50 Troponin I < 0.012 ng/mL 08/05/19 05:00 C-Reactive Protein 48.9 mg/L (<10.0) H 08/06/19 05:05 NT-Pro-B Natriuret Pep 1990 pg/mL (<450) H 08/04/19 15:50 Total Protein 6.9 g/dL (6.3-8.2) 08/04/19 15:50 Albumin 3.1 g/dL (3.5-5.0) L 08/04/19 15:50 Triglycerides 62 mg/dL (<150) 08/05/19 05:00 Cholesterol 113.97 mg/dL (0-200) 08/05/19 05:00 LDL Cholesterol Direct 74 mg/dL (<100) 08/05/19 05:00 VLDL Cholesterol 12.0 mg/dL (10-31) 08/05/19 05:00 HDL Cholesterol 32 mg/dL (>40) L 08/05/19 05:00 Urine Color YELLOW 08/05/19 01:15 Urine Appearance CLEAR 08/05/19 01:15 Urine pH 5.0 (5.0-9.0) 08/05/19 01:15 Ur Specific [place] 1.009 08/05/19 01:15 Urine Protein NEGATIVE mg/dL (NEGATIVE) 08/05/19 01:15 Urine Glucose (UA) NEGATIVE mg/dL (NEGATIVE) 08/05/19 01:15 Urine Ketones NEGATIVE mg/dL (NEGATIVE) 08/05/19 01:15 Urine Blood NEGATIVE (NEGATIVE) 08/05/19 01:15 Urine Nitrite NEGATIVE (NEGATIVE) 08/05/19 01:15 Urine Bilirubin NEGATIVE (NEGATIVE) 08/05/19 01:15 Urine Urobilinogen NEGATIVE mg/dL (<2.0) 08/05/19 01:15 Ur Leukocyte Esterase NEGATIVE (NEGATIVE) 08/05/19 01:15 Urine WBC (Auto) 0 /HPF 08/05/19 01:15 Urine RBC (Auto) 0 /HPF 08/05/19 01:15 U Hyaline Cast (Auto) 5 /LPF 08/05/19 01:15 Squamous Epi Cells Auto <1 /HPF 08/05/19 01:15 Urine Ascorbic Acid NEGATIVE (NEGATIVE) 08/05/19 01:15 Rheumatoid Factor IgG 99.9 EU/ml (.) A 08/06/19 15:03 Rheumatoid Factor IgA 86.6 EU/ml (.) A 08/06/19 15:03 Rheumatoid Factor IgM >80.0 IU/ml (.) A 08/06/19 15:03 Double Strand DNA Ab <1 IU/mL (0-9) 08/06/19 15:03 Tot Complement (CH50) 60 U/mL (>41) 08/06/19 15:03 08/04/19 08/05/19 15:50 05:00 CK-MB (CK-2) 0.98 Troponin I < 0.012 < 0.012 NT-Pro-B Natriuret Pep 1990 H Impressions: Chest X-Ray 08/04/19 15:38 IMPRESSION: Cardiomegaly and basilar predominant hazy opacities that obscure the contours of the hemidiaphragms and blunt the costophrenic sulci. Clinical correlation for signs and symptoms of volume overload/ CHF is recommended. Plan Health Concerns: BiPAP dependence from multiple comorbidities. Patient will be discharging to home on hospice. Plan of Treatment: Home with hospice. The patient wishes to continue BiPAP for the time being. We will continue her current medication regimen as well. At any time she may decide to move to comfort only. Goals: Comfortable transition to home with home hospice where she may pass away with family. Time Spent: Greater than 30 Minutes Stroke Is this a Stroke Patient?: No Acute Heart Failure - Is this a Heart Failure Patient?: Yes Documentation of LVEF assessment?: Yes LVEF: LVEF Greater Than 40% Anticoagulant Therapy: No, document contraindications Reason(s) not Discharged on Anticoagulant Therapy: Repeated falls/unsteady gait Discharged on Evidence-Based Beta Blockers: No, document contraindications Reason(s) not discharged on Evidence-Based Beta Blockers: Fluid Overload, Other - Severe pulmonary hypertension. Diltiazem preferred. Beta Kareen Reason - Other: Diltiazem preferred for severe pulmonary hypertension Discharged on ARNI?: No-Document Contraindications Reason(s) not discharged on ARNI: ACEI use within the prior 36 hours, Other - Discharged on angiotensin receptor kareen ARNI Reason - Other: See above Discharged on ARB?: Yes Discharged on ACEI?: N/A Discharged on ARB For LVEF <35%, discharged on Aldosterone Antagonist?: N/A (LVEF > or = 35%) Follow-up Appointment scheduled within 7 days?: No, document reason - Hospice
[2019-08-12] MEDS: DILTIAZEM HCL 120 MG CAP.SR.24H PO SCH ×2 (10:01→22:15)
[2019-08-12] MEDS: POTASSIUM CHLORIDE 10 MEQ TABLET.ER PO SCH (10:02)
[2019-08-12] MEDS: LISINOPRIL 5 MG TABLET PO SCH (10:02)
[2019-08-12] MEDS: ENOXAPARIN SODIUM INJ 40 MG/0.4 ML DISP.SYRIN SUBCUT SCH (10:03)
[2019-08-12] MEDS: LOSARTAN POTASSIUM 25 MG TABLET PO SCH ×2 (10:03→22:15)
[2019-08-12] MEDS: NYSTATIN TOPICAL POWDER 15 GM TP SCH ×3 (10:03→17:16)
[2019-08-12] MEDS ORDERED: PROMETHAZINE HCL INJ 25 MG/1 ML VIAL IV PRN (11:30)
--- NOTE | 2019-08-12 19:38 | Progress Note ---
Provider Note Provider Note: 08/12/2019 I was informed by discharge planning that due to equipment the patient will not be able to go home today and enroll in hospice. They should have the equipment first thing in the morning and the plan is to transfer the patient tomorrow morning. Today's discharge summary will remain in effect. The discharge date will be advanced but the patient will likely depart the facility prior to evaluation tomorrow which is favorable for the patient to be enrolled in hospice at home.
[2019-08-12] MEDS: ASPIRIN 81 MG TABLET, ENT COATED PO SCH (22:15)
[2019-08-12] MEDS: MELATONIN 3 MG TABLET PO SCH (22:15)
[2019-08-13] MEDS: FUROSEMIDE INJ/PF 20 MG/2 ML SDV IV SCH (06:37)
[2019-08-13] MEDS: PANTOPRAZOLE SODIUM 40 MG TABLET.DR PO SCH (06:37)
[2019-08-13] MEDS: LEVOTHYROXINE SODIUM 0.025 MG TABLET PO SCH (06:37)
[2019-08-13] MEDS: INSULIN LISPRO 100 UNIT/ML 3 ML VIAL SUBCUT SCH ×2 (07:43→11:47)
[2019-08-13] MEDS: DILTIAZEM HCL 120 MG CAP.SR.24H PO SCH (10:14)
[2019-08-13] MEDS: POTASSIUM CHLORIDE 10 MEQ TABLET.ER PO SCH (10:14)
[2019-08-13] MEDS: LOSARTAN POTASSIUM 25 MG TABLET PO SCH (10:14)
[2019-08-13] MEDS: LISINOPRIL 5 MG TABLET PO SCH (10:15)
[2019-08-13] MEDS: FERROUS SULFATE 325 MG TABLET PO SCH (10:15)
[2019-08-13] MEDS: NYSTATIN TOPICAL POWDER 15 GM TP SCH (10:17)
[2019-08-13] MEDS: ENOXAPARIN SODIUM INJ 40 MG/0.4 ML DISP.SYRIN SUBCUT SCH (10:17)
[2019-08-13 13:55] VITALS: BP 109/60
== END 2019-08-13 13:15 | disposition hospice, home (50) | DRG 291 ==
LOC: ER 15:37 → EH 17:56 → 4S 20:10
PROVIDERS: ADMIT Hospitalist; ATTEND Family Medicine
PROC: 5A09357 Assistance with Respiratory Ventilation, Less than 24 Consecutive Hours, Continuous Positive Airway Pressure (ICD-10-PCS; principal; 2019-08-04)
DX: I11.0 Hypertensive heart disease with heart failure (principal); J96.01 Acute respiratory failure with hypoxia; I48.11 Longstanding persistent atrial fibrillation; E66.2 Morbid (severe) obesity with alveolar hypoventilation; Z68.44 Body mass index [BMI] 60.0-69.9, adult; I50.23 Acute on chronic systolic (congestive) heart failure; I27.20 Pulmonary hypertension, unspecified; E78.00 Pure hypercholesterolemia, unspecified; E03.9 Hypothyroidism, unspecified; E11.65 Type 2 diabetes mellitus with hyperglycemia; D50.9 Iron deficiency anemia, unspecified; E83.42 Hypomagnesemia; I80.00 Phlebitis and thrombophlebitis of superficial vessels of unspecified lower extremity; E87.5 Hyperkalemia; Z79.82 Long term (current) use of aspirin; Z79.4 Long term (current) use of insulin; Z79.899 Other long term (current) drug therapy
CPT/HCPCS: 36415; 36600; 71045; 80048; 80053; 80061; 81001; 82550; 82553; 82803; 82962; 83605; 83735; 83880; 84100; 84484; 85025; 85652; 86140; 86162; 86225; 86431; 93005; 93010; 93306; 94660; 99285; J1650; J1815; J1940; J2550; J3490